=== PATIENT | male | born 1945 | race Caucasian/White ===

== ENCOUNTER 2019-11-08 11:38 | Inpatient (IN) | payer MEDICARE, BC ==
[~2019-11-08 11:38] MED LIST: SUCCINYLCHOLINE CHLORIDE INJ 200 MG/10 ML VIAL ONE
[2019-11-08] MEDS ORDERED: NALOXONE HCL INJ/PF 0.4 MG/1 ML SDV IV ONE (11:57)
[2019-11-08] MEDS ORDERED: DEXTROSE 50%-WATER 25 GM/50 ML DISP.SYRIN IV ONE (11:57)
[2019-11-08 12:07] LABS: VENOUS BLOOD BASE EXCESS -4.2 mmol/L; VENOUS BLOOD HCO3 26.4 mmol/L (20-32)
[2019-11-08 12:08] LABS: INTERNATIONAL RATION (INR) 1.05; PROTHROMBIN TIME 13.7 SEC (11.4-15.4)
[2019-11-08 12:09] LABS: VENOUS BLOOD PH 7.16 (7.30-7.42)
[2019-11-08] MEDS ORDERED: ETOMIDATE INJ/PF 20 MG/10 ML SDV IV ONE ×2 (12:19→12:43)
--- NOTE | 2019-11-08 12:33 | RADIOLOGY REPORT (SQ) ---
EXAM DESCRIPTION: CHEST SINGLE VIEW IMAGES COMPLETED DATE/TIME: 11/08/2019 12:20 pm REASON FOR STUDY: unresponsive COMPARISON: None. EXAM PARAMETERS: NUMBER OF VIEWS: One view. TECHNIQUE: Single frontal radiographic view of the chest acquired. RADIATION DOSE: NA LIMITATIONS: Demographics mismatch warning. Both film and report are marked in Reggie Herrera FINDINGS: LUNGS AND PLEURA: No opacities, masses or pneumothorax. No pleural effusion. MEDIASTINUM AND HILAR STRUCTURES: No masses. Contour normal. HEART AND VASCULAR STRUCTURES: Heart normal in size. Normal vasculature. BONES: No acute findings. HARDWARE: None in the chest. OTHER: No other significant finding. IMPRESSION: NO ACUTE RADIOGRAPHIC FINDING IN THE CHEST. TECHNICAL DOCUMENTATION: JOB ID: [id number] 2010 [employer]- All Rights Reserved Reading location - IP/workstation name: [email or web address]
[2019-11-08] MEDS: PROPOFOL 1,000 MG/100 ML INFUS..BTL IV PRN ×3 (12:42→20:28)
[2019-11-08] MEDS ORDERED: SUCCINYLCHOLINE CHLORIDE INJ 200 MG/10 ML VIAL IV ONE (12:44)
--- NOTE | 2019-11-08 12:50 | RADIOLOGY REPORT (SQ) ---
EXAM DESCRIPTION: CHEST SINGLE VIEW IMAGES COMPLETED DATE/TIME: 11/08/2019 12:40 pm REASON FOR STUDY: check ett COMPARISON: 11/08/2019 EXAM PARAMETERS: NUMBER OF VIEWS: One view. TECHNIQUE: Single frontal radiographic view of the chest acquired. RADIATION DOSE: NA LIMITATIONS: None. FINDINGS: LUNGS AND PLEURA: No opacities, masses or pneumothorax. No pleural effusion. MEDIASTINUM AND HILAR STRUCTURES: No masses. Contour normal. HEART AND VASCULAR STRUCTURES: Heart normal in size. Normal vasculature. BONES: No acute findings. HARDWARE: An endotracheal tube is in position with its tip 4 cm above the lucina. OTHER: No other significant finding. IMPRESSION: Endotracheal tube as described. No other interval change. TECHNICAL DOCUMENTATION: JOB ID: [id number] 2010 [employer]- All Rights Reserved Reading location - IP/workstation name: [email or web address]
--- NOTE | 2019-11-08 13:55 | RADIOLOGY REPORT (SQ) ---
EXAM DESCRIPTION: CT HEAD WITHOUT IMAGES COMPLETED DATE/TIME: 11/08/2019 1:29 pm REASON FOR STUDY: UNRESPONSIVE COMPARISON: None. TECHNIQUE: Axial images acquired through the brain without intravenous contrast. Images reviewed wi th bone, brain and subdural windows. Additional sagittal and coronal reconstructions were generated. Images stored on PACS. All CT scanners at this facility use dose modulation, iterative reconstruction, and/or weight based d osing when appropriate to reduce radiation dose to as low as reasonably achievable (ALARA). [facility]: Dose Right [facility]: CareDose [facility]: Dose Right [facility]: Teradose 4D [facility]: Metwit RADIATION DOSE: CT Rad equipment meets quality standard of care and radiation dose reduction techniq ues were employed. CTDIvol: 53.2 mGy. DLP: 1124 mGy-cm.mGy. LIMITATIONS: None. FINDINGS: VENTRICLES: Prominent. CEREBRUM: No masses. No hemorrhage. No midline shift. Areas of low density in the white matter mos t likely due to chronic micro-vascular ischemic change. No evidence for acute infarction. CEREBELLUM: No masses. No hemorrhage. No alteration of density. No evidence for acute infarction. EXTRAAXIAL SPACES: Age-related involutional change. No fluid collections. No masses. ORBITS AND GLOBE: No intra- or extraconal masses. Normal contour of globe without masses. CALVARIUM: No fracture. PARANASAL SINUSES: Completely opacified maxillary, ethmoid and sphenoid sinuses. SOFT TISSUES: No mass or hematoma. OTHER: No other significant finding. IMPRESSION: CHRONIC CHANGES OF ATROPHY AND MICROVASCULAR ISCHEMIA. NO ACUTE PROCESS. EVIDENCE OF ACUTE STROKE: NO. TECHNICAL DOCUMENTATION: JOB ID: [id number] Quality ID # [id number]: Final reports with documentation of one or more dose reduction techniques (e.g., Au tomated exposure control, adjustment of the mA and/or kV according to patient size, use of iterative reconstruction technique) 2010 [employer]- All Rights Reserved Reading location - IP/workstation name: [email or web address]
--- NOTE | 2019-11-08 13:56 | ER Document Report ---
ED General - General Chief Complaint: Unresponsive Stated Complaint: UNRESPONSIVE Mode of Arrival: Medic Information source: Emergency Med Personnel TRAVEL OUTSIDE OF THE [place] IN LAST 30 DAYS: No - HPI Notes: Patient is brought in unresponsive. Paramedics state that when they arrived at scene they found the patient with a blood sugar of 40 as well as a pulse ox saturation of 40%. They state they immediately put a nonrebreather on and gave the patient glucose. His blood sugar came back to normal as well as his saturations however patient never became responsive. The paramedics state that the told them they were sitting in the chair watching TV and she went into the kitchen to get some food she stated when she came back he was not responsive. There is been no known recent fevers cough congestion or signs of illness. No known recent falls or trauma. No known covert virus exposures. Patient's symptoms of unresponsiveness have been constant. Nothing appears to make them better or worse. There is obviously no radiation of the symptoms. They are not severe. - Related Data Allergies/Adverse Reactions: oxycodone [From OxyContin] Allergy (Verified 07/30/18 13:08) Past Medical History - General Information source: Emergency Med Personnel - Social History Smoking Status: Former Smoker Chew tobacco use (# tins/day): No Drug Abuse: None Family History: CAD Patient has homicidal ideation: No - Past Medical History Cardiac Medical History: Reports: Hx Congestive Heart Failure, Hx Coronary Artery Disease, Hx Peripheral Vascular Disease Pulmonary Medical History: Reports: Hx COPD Endocrine Medical History: Reports: Hx Diabetes Mellitus Type 2 Renal/ Medical History: Denies: Hx Peritoneal Dialysis Past Surgical History: Reports: Hx Cardiac Surgery - stent, Hx Coronary Stent - x 2 Review of Systems - Review of Systems -: Yes ROS unobtainable due to patient's medical condition - Cannot obtain review of symptoms due to patient's unresponsiveness Physical Exam - Vital signs Vitals: Resp Pulse Ox 24 H 100 11/08/19 11:37 11/08/19 11:37 Interpretation: Normal - General General appearance: Unresponsive In distress: Mild - HEENT Head: Normocephalic, Atraumatic Cornea: Normal Eyelashes: Normal Pupils: PERRL, Pinpoint Mouth/Lips: Normal Mucous membranes: Dry Pharynx: Normal Neck: Normal - Respiratory Respiratory status: Respiratory distress - Mild Chest status: Nontender Breath sounds: Normal, Decreased air movement, Rhonchi, Wheezing Chest palpation: Normal - Cardiovascular Rhythm: Regular Heart sounds: Normal auscultation Murmur: No - Abdominal Inspection: Normal Distension: No distension Bowel sounds: Normal Tenderness: Nontender Organomegaly: No organomegaly - Back Back: Normal, Nontender - Extremities General upper extremity: Normal inspection, Normal color, Normal temperature General lower extremity: Normal inspection, Edema - 1+ bilaterally with bilateral erythema of the lower extremities consistent with venous stasis changes, Normal color, Normal temperature. No: Filomena's sign - Neurological Cognition: Confused Orientation: Disoriented to person, Disoriented to place, Disoriented to time Mcintyre Coma Scale Eye Opening: None Matt Coma Scale Verbal: Incomprehensible Matt Coma Scale Motor: Withdraws to Pain Mcintyre Coma Scale Total: 7 - Psychological Associated symptoms: Confused, Depressed - Skin Skin Temperature: Warm Skin Moisture: Dry Skin Color: Normal Course - Re-evaluation Re-evalutation: 11/08/19 13:54 Patient arrived by EMS unresponsive. Patient did have a period of hypoglycemia this was corrected and patient's persistent unresponsiveness may be secondary to the original episode of hypoglycemia. Patient was also noticed to be significantly hypoxic but has had normal respirations on his own here with good saturations on a nonrebreather. There is no obvious evidence of infection anywhere at this time. I do not see any evidence of intracranial pathology on CT scan although has not been read by the radiologist. Patient is not febrile. I initially tried a period of about 20 to 30 minutes of seeing if patient's mental status would improve as his glucose was normalized however patient blood gas came back acidotic with an elevated PCO2. He continued to be a GCS less than 8. Therefore I felt that it was necessary to do rapid sequence intubation on this patient. After intubation he is been stable with vital signs. He has been sedated with propofol. Labs at this time are pending and have to be redrawn. I have discussed the case with the intensive care physician who will see the patient in the emergency department. - Vital Signs Vital signs: Temp Pulse Resp BP Pulse Ox 96.4 F L 13 169/86 H 100 11/08/19 11:38 11/08/19 12:40 11/08/19 12:40 11/08/19 12:40 - Laboratory Result Diagrams: 11/08/19 11:42 11/08/19 11:42 Laboratory results interpreted by me: 11/08/19 11/08/19 11:42 11:43 VBG pH 7.16 L* VBG pCO2 76.0 H* POC Glucose 162 H - Diagnostic Test Radiology reviewed: Image reviewed, Reports reviewed Procedures - Intubation Orotracheal Time of Intubation: 12:30 Airway evaluation: Copious secretions, Large tongue, Obese Mallampati Classification: Class 3 Medications: Etomidate, Succinylcholine Intubation method: Orotracheal Blade type: Other - glidescope blade Blade size: 3 Equipment used: Glidescope ETT size: 7.5 ETT secured at: Lips ETT secured at (cm): 24 Breath Sounds after Intubation: Equal End tidal CO2 confirmed: Yes Ventilator settings: PS Post Intubation Xray: Yes Intubation Complications: No complications. No: Oral-unsuccessful attempt Critical Care Note - Critical Care Note Total time excluding time spent on procedures (mins): 60 Comments: 60 minutes of critical care time were spent on this patient. This patient presented with altered mental status. This time was spent having discussions with multiple consultants. It was spent reviewing old records. It was spent reviewing imaging and laboratories. It was spent doing multiple reassessments. Discharge - Discharge Clinical Impression: Unresponsive, Hypoglycemia, Acute respiratory failure with hypoxia and hypercapnia Condition: Critical Disposition: ADMITTED INPATIENT Admitting Provider: Natty ([employer]) Unit Admitted: ICU
[2019-11-08] MEDS ORDERED: PHARMACY COMMUNICATION ORDER MC NR (14:45)
[2019-11-08] MEDS ORDERED: HEPARIN SOD (PORCINE) 5,000 UNIT/ML 1 ML VIAL SUBCUT SCH (15:00)
[2019-11-08] MEDS ORDERED: FENTANYL CITRATE INJ/PF 100 MCG/2 ML AMPUL IV ONE (15:30)
[2019-11-08] MEDS ORDERED: RINGERS SOLUTION,LACTATED 500 ML IV ONE (15:30)
[2019-11-08] MEDS: HYDROCORTISONE SOD SUCCINATE INJ/PF 100 MG/2 ML SDV IV SCH ×2 (15:42→21:38)
[2019-11-08 15:50] LABS: INTERNATIONAL RATION (INR) 1.03; PROTHROMBIN TIME 13.6 SEC (11.4-15.4)
[2019-11-08 15:51] LABS: PARTIAL THROMBOPLASTIN TIME 32.2 SEC (23.5-35.8)
[2019-11-08 15:53] LABS: D-DIMER 1.35 ug/mL (0.00-0.50); HEMATOCRIT 42.8 % (37.9-51.0); HEMOGLOBIN 13.8 g/dL (13.5-17.0); MEAN CORPUSCULAR HEMOGLOBIN 29.8 pg (27.0-33.4); MEAN CORPUSCULAR HGB CONC 32.1 g/dL (32.0-36.0); MEAN CORPUSCULAR VOLUME 93 fl (80-97); PLATELET COUNT 264 10^3/uL (150-450); RED BLOOD COUNT 4.62 10^6/uL (4.35-5.55); RED CELL DISTRIBUTION WIDTH 13.7 % (11.5-14.0); WHITE BLOOD COUNT 16.7 10^3/uL (4.0-10.5)
[2019-11-08 16:03] LABS: ALBUMIN 3.3 g/dL (3.5-5.0); ALKALINE PHOSPHATASE 89 U/L (38-126); ANION GAP 5 (5-19); ASPARTATE AMINO TRANSFERASE 27 U/L (17-59); BLOOD UREA NITROGEN 25 mg/dL (7-20); CALCIUM 8.5 mg/dL (8.4-10.2); CARBON DIOXIDE 30 mmol/L (22-30); CHLORIDE 104 mmol/L (98-107); GLUCOSE 93 mg/dL (75-110); POTASSIUM 5.3 mmol/L (3.6-5.0); TOTAL PROTEIN 6.8 g/dL (6.3-8.2)
[2019-11-08] MEDS ORDERED: CEFEPIME 1 GM/D5W RTU 1 GM/50 ML RTUPB IV ONE (16:15)
[2019-11-08 16:25] LABS: AMYLASE 88 U/L (30-110); CREATINE KINASE 200 U/L (55-170)
[2019-11-08 16:28] LABS: ABSOLUTE LYMPHOCYTES# (MANUAL) 0.8 10^3/uL (0.5-4.7); ABSOLUTE MONOCYTES # (MANUAL) 0.3 10^3/uL (0.1-1.4); BASOPHILS % (MANUAL) 1 % (0-2); EOSINOPHILS % (MANUAL) 0 % (0-6); LYMPHOCYTES % (MANUAL) 5 % (13-45); MONOCYTES % (MANUAL) 2 % (3-13); PLATELET COMMENT ADEQUATE; SEGMENTED NEUTROPHILS % (MAN) 92 % (42-78); TOTAL CELLS COUNTED 100
[2019-11-08] MEDS ORDERED: HEPARIN SOD (PORCINE) 1,000 UNIT/ML 10 ML VIAL IV ONE (16:30)
[2019-11-08 16:31] LABS: BURR CELLS 1+; POLYCHROMASIA SLIGHT
[2019-11-08 16:39] LABS: FREE T4 (FREE THYROXINE) 0.8 ng/dL (0.78-2.19)
[2019-11-08] MEDS: IPRATROPIUM/ALBUTEROL 0.5-2.5 MG/3 ML AMPUL NEB SCH ×2 (16:51→20:21)
[2019-11-08 16:53] LABS: THYROID STIMULATING HORMONE 2.65 uIU/mL (0.47-4.68)
--- NOTE | 2019-11-08 16:56 | CRITICAL CARE ADMISSION REPORT ---
HPI Date:: 11/08/19 Time:: 15:00 Reason for ICU Reason:: Hypoglycemic coma with need for mechanical ventilation Admission Date/Time & PCP: Admission Date/Time: 11/08/19 14:22 Primary Care Provider: SC JORDAN HPI: Patient is a 74-year-old male with a history of type 2 diabetes on insulin therapy as well as CKD (unknown severity) who presented unresponsive to the emergency room. Original records seem to indicate that this was acute however when the arrived to give more information it was determined that his last known "seen normal" was last evening. Patient was seen by EMS after the called and found to have a blood sugar of 40 mg/dL. He was unresponsive. In the emergency room he was given more glucose which improved his blood sugar but did not improve his neurological status. Given the reduction in his neurological status he was intubated. I was unable to obtain any history from the patient. The states that he has had an upper respiratory infection with symptoms of nasal congestion runny nose and possible sore throat. He does have oxygen condenser at home but does not appear to have needed at higher dose nor continuous use of the oxygen. He does use it at night however it is difficult to know whether he needed it last evening. Initial blood gas in the emergency room showed a pH that was low and significant hypercarbia. In review of past medications patient has been on steroids. He is also on gabapentin at 600 mg every 8 hours. He has had a history of possible CKD and was seen in our institution for this. He also took his insulin last night as best as anybody can tell. He underwent COVID testing in the emergency room. Results are still pending. EKG in the emergency room shows atrial fibrillation. His is unaware if this is acute or chronic however he was on rivaroxaban but discontinued secondary to bleeding when he scratched his skin. I reviewed the patient's medications obtained from the family. Currently the patient is on: Lipitor 40 mg daily Gabapentin 600 mg TID Lasix 20 mg prn for leg swelling Metoprolol Succinate 12.5 mg daily Synthroid 50 mcg daily Mometasone Furoate: 220 mcg 2 puffs daily Fluticasone 50 mcg 2 sprays in each nostril daily CholeCalciferol 25 mcg (D3-1000 u) 2 tablets daily Insulin regimen: Insulin Glarginine: (Soliqua) 50 units QHS Coverage scale -with Humalog Albuterol 90 mcg Inhl- 2 puffs Q6h PRN Albuterol soln neb: 0.083% 3 ml q6h prn Olodaterol/Tiotropium 2.5 mcg 2 puffs daily Rivaroxaban 20 mg daily-not currently taking History obtained from:: , son and ED staff - Diagnosis/Plan (1) Hypoglycemic coma due to diabetes mellitus Is this a current diagnosis for this admission?: Yes (2) Acute respiratory failure with hypoxia and hypercapnia Is this a current diagnosis for this admission?: Yes (3) Hypoglycemia Is this a current diagnosis for this admission?: Yes (4) Bilateral lower leg cellulitis Is this a current diagnosis for this admission?: Yes (5) CKD (chronic kidney disease) Qualifiers: Chronic kidney disease stage: unspecified stage Qualified Code(s): N18.9 - Chronic kidney disease, unspecified Is this a current diagnosis for this admission?: Yes (6) Longstanding persistent atrial fibrillation Is this a current diagnosis for this admission?: Yes (7) Hypothyroidism Is this a current diagnosis for this admission?: Yes Plan Summary: Respiratory: Patient has hypercarbic and hypoxic respiratory failure which may be a manifestation of his hypoglycemic comatose state. We will attempt to wean mechanical ventilation as his neurological and respiratory status improves. He has a history of COPD that is intermittently oxygen requiring. His chest x-ray does not show any significant findings. We will continue to monitor for aspiration pneumonitis and/or pneumonia. Infectious: Patient has bilateral erythema of his lower extremities. Have started broad-spectrum antibiotics, obtain blood cultures and will obtain urinalysis. Have also added antifungal therapy for the legs. Monitor procalcitonin. Cardiac: Patient appears to have atrial fibrillation which is persistent controlled ventricular response. He is supposed to be on rivaroxaban however had discontinued this because of bleeding when he traumatized his skin. Will need to re-institute anticoagulation especially given his low heart rate in the form of IV heparin. His skin is furrowed on exam suggestive of hypovolemia/dehydration. We will give supplemental bolus of LR and place him on D5 LR given his hypoglycemia. Hematologic: Will recheck coagulation parameters, d-dimer and institute heparin therapy if parameters are suitable. Follow platelets. Endocrine: Patient had hypoglycemia on initial presentation. This may be a combination of insulin therapy in the face of renal failure and/or unintentional overdosage. In addition he may have adrenal insufficiency and of check a cortisol level. I have preemptively started him on hydrocortisone for both its mineral and glucocorticoid effects. We will check the results. Have also ordered TSH given the fact that he has hypothyroidism to assure that there is no worsening thyroid function. Renal: Patient had a creatinine of 2.26 more than a year ago. We are not privy to his recent creatinine and labs are still pending. Will need to follow-up on this and adjust medications accordingly. Metabolic: We will check ammonia level as well as follow his pH with a repeat ABG. Replace electrolytes as needed. His QTC is slightly elevated and will need to make sure his magnesium is high to normal. Alimentary: Need to start nutritional support within the next 24 hours. Neurologic: Patient appears to have coma secondary to hypoglycemic event. Continue to monitor his neurological status determine suitability removal from mechanical ventilation. Sedation/analgesia: Patient has been ordered propofol because of agitation while on the ventilator. Lines/Tubes: Patient has peripheral IVs Other/family: Discussed prognosis case and care with family who are at bedside. Past Medical History Cardiac Medical History: Reports: Atrial Fibrillation - On anticoagulation, Congestive Heart Failure, Coronary Artery Disease, Peripheral Vascular Disease Pulmonary Medical History: Reports: Chronic Obstructive Pulmonary Disease (COPD), Other - Has home condense oxygen to be used as needed Neurological Medical History: Reports: None Endocrine Medical History: Reports: Diabetes Mellitus Type 2 - Long-term insulin requiring Renal/ Medical History: Reports: Chronic Kidney Disease, Other - Unknown severity Malignancy Medical History: Reports: None GI Medical History: Reports: None Musculoskeltal Medical History: Reports: None Skin Medical History: Reports: None Psychiatric Medical History: Reports: None Traumatic Medical History: Reports: None Hematology: Reports: 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, Other Infectious Medical History: Reports: None Past Surgical History Past Surgical History: Reports: Coronary Stent - x 2 Social/Family History - Social History Lives with: Spouse/Significant other Smoking Status: Former Smoker Frequency of Alcohol Use: Social Hx Recreational Drug Use: No Drugs: None Hx Prescription Drug Abuse: No - Family History Family History: Other - Unable to obtain - Medication/Allergies Home Medications: Albuterol Sulfate [Ventolin 0.083% Neb 2.5 mg/3 mL Ampul] 1 vial NEB [id number] PRN 07/30/18 Aspirin [Ecotrin 325 mg EC Tablet] 325 mg PO DAILY 07/30/18 Atorvastatin Calcium [Lipitor 40 mg Tablet] 40 mg PO QHS 07/30/18 Furosemide [Lasix 20 mg Tablet] 20 mg PO QAM 07/30/18 Hum Insulin NPH/Reg Insulin Hm [Novolin 70-30 100 Unit/Ml Vial] 70 unit SQ QPM 07/30/18 Hum Insulin NPH/Reg Insulin Hm [Novolin 70-30 100 Unit/ml Vial] 0 unit SQ QAM PRN 07/30/18 Metoprolol Succinate [Toprol Xl 25 mg Tab.sr] 12.5 mg PO DAILY 07/30/18 Fluticasone/Vilanterol [Breo 200-25 Mcg Ellipta 14 Dose/Dpi] 1 inh IH DAILY #1 inhaler 08/03/18 Gabapentin [Neurontin 300 mg Capsule] 300 mg PO Q8 #10 capsule 08/03/18 Prednisone [Deltasone 10 mg Tablet] 10 mg PO BID 5 Days #10 tablet 08/03/18 Tiotropium West [Spiriva Handihaler 5 Cap/Kit (18 Mcg/Cap)] 1 cap IH DAILY #30 kit 08/03/18 Allergies/Adverse Reactions: oxycodone [From OxyContin] Allergy (Verified 07/30/18 13:08) Review of Systems ROS unobtainable: Due to endotracheal tube, Due to mental status Physical Exam Vital Signs: Temp Pulse Resp BP Pulse Ox 96.4 F L 13 169/86 H 100 11/08/19 11:38 11/08/19 12:40 11/08/19 12:40 11/08/19 12:50 Intake & Output 11/07/19 11/08/19 11/09/19 06:59 06:59 06:59 Intake Total 35 Balance 35 Weight 97.3 kg Weight/Height Weight 97.3 kg Height 5 ft 11 in General appearance: PRESENT: no acute distress, obese, well-developed, well- nourished Exam: Intubated, older appearing 74-year-old male no active distress. He is moving his arms spontaneously Head exam: PRESENT: atraumatic, normocephalic Eye exam: PRESENT: conjunctiva pink, PERRLA. ABSENT: conjunctival injection, nystagmus, scleral icterus Ear exam: ABSENT: bleeding Mouth exam: PRESENT: dry mucosa, neck supple Teeth exam: PRESENT: poor dentation Neck exam: PRESENT: carotid bruit. ABSENT: JVD, lymphadenopathy, meningismus, tenderness, thyromegaly, tracheal deviation, tracheostomy Respiratory exam: PRESENT: rhonchi, unlabored, other - Lung sounds not auscultated secondary to the confines of PPE and poor auditory capability of disposable stethoscope. ABSENT: accessory muscle use, prolonged expiratory phas, tachypnea Cardiovascular exam: PRESENT: irregular rhythm, other - Heart sounds not auscultated secondary to the confines of PPE and poor auditory capability of disposable stethoscope. ABSENT: tachycardia Pulses: ABSENT: normal dorsalis pedis pul Vascular exam: PRESENT: normal capillary refill. ABSENT: pallor GI/Abdominal exam: PRESENT: soft, other - Gastric sounds not auscultated secondary to the confines of PPE and poor auditory capability of disposable stethoscope. ABSENT: distended, guarding, mass, organolmegaly, rebound, tenderness Rectal exam: PRESENT: deferred Gentrourinary exam: PRESENT: indwelling catheter Extremities exam: PRESENT: other - Bilateral lower extremity erythema with decreased turgor mobility and elasticity of the lower extremities. The right great toe has a small ulceration with discoloration from what appears to be an antibiotic solution. There is no erythema. ABSENT: pedal edema Musculoskeletal exam: ABSENT: deformity, dislocation Neurological exam: PRESENT: altered, other - Patient currently sedated. Gepp Coma Scale 21Tfacial grimace Focused psych exam: PRESENT: restlessness Skin exam: PRESENT: dry, intact, warm, other - Bilateral erythema of lower extremities ulceration of right great toe. ABSENT: cyanosis, rash Laboratory/Radiographs Laboratory Results: 11/08/19 11/08/19 11/08/19 11:42 11:42 11:42 WBC Cancelled RBC Cancelled Hgb Cancelled Hct Cancelled MCV Cancelled MCH Cancelled MCHC Cancelled RDW Cancelled Plt Count Cancelled Seg Neutrophils % Cancelled VBG pH 7.16 L* VBG pCO2 76.0 H* VBG HCO3 26.4 VBG Base Excess -4.2 Sodium Cancelled Potassium Cancelled Chloride Cancelled Carbon Dioxide Cancelled Anion Gap Cancelled BUN Cancelled Creatinine Cancelled Est GFR ( Amer) Cancelled Est GFR (Non-Af Amer) Cancelled Glucose Cancelled Lactic Acid Calcium Cancelled Total Bilirubin Cancelled AST Cancelled Alkaline Phosphatase Cancelled Total Protein Cancelled Albumin Cancelled 11/08/19 11:42 WBC RBC Hgb Hct MCV MCH MCHC RDW Plt Count Seg Neutrophils % VBG pH VBG pCO2 VBG HCO3 VBG Base Excess Sodium Potassium Chloride Carbon Dioxide Anion Gap BUN Creatinine Est GFR ( Amer) Est GFR (Non-Af Amer) Glucose Lactic Acid 0.7 Calcium Total Bilirubin AST Alkaline Phosphatase Total Protein Albumin Impressions: Chest X-Ray 11/08/19 12:29 IMPRESSION: Endotracheal tube as described. No other interval change. Head CT 11/08/19 12:29 IMPRESSION: CHRONIC CHANGES OF ATROPHY AND MICROVASCULAR ISCHEMIA. NO ACUTE PROCESS. EVIDENCE OF ACUTE STROKE: NO. EKG: QTC 506 MS, controlled slow atrial fibrillation; previous EKG reviewed. Slight ST elevation in the anterior leads has been seen before. Q changes are noted in inferior leads. No acute changes All labs, radiographs, diagnostic studies and EKGs were personally reviewed: Yes In addition, reports of radiographic and diagnostic studies were read: Yes Critical Time Critical Time (minutes): 70 -: The care of a critically ill patient is dynamic. This note represents a static moment in the admission process. Orders and treatments may be given simultaneously and urgently, and time is not home office representative of the treatment process. This patient requires Critical Care secondary to life threatening organ or limb dysfunction. Without Critical Care services, the patient is at risk for increased mortality and morbidity.
[2019-11-08 17:00] LABS: C-REACTIVE PROTEIN < 5.0 mg/L (<10.0)
[2019-11-08] MEDS: DEXTROSE 5%-NORMAL SALINE 1,000 ML IV PRN (17:00)
[2019-11-08] MEDS: CLOTRIMAZOLE 1% CREAM 15 GM TP SCH ×2 (17:27→21:38)
[2019-11-08 17:37] LABS: ARTERIAL BLOOD BASE EXCESS 4.1 mmol/L; ARTERIAL BLOOD H2CO3 1.52 mmol/L (1.05-1.35); ARTERIAL BLOOD HCO3 30.1 mmol/L (20-24); ARTERIAL BLOOD O2 SATURATION 97.6 % (94-98); ARTERIAL BLOOD PCO2 50.5 mmHg (35-45); ARTERIAL BLOOD PH 7.39 (7.35-7.45); ARTERIAL BLOOD PO2 103.2 mmHg (80-100); ARTERIAL BLOOD TOTAL CO2 31.6 mmol/L (23-27)
[2019-11-08 17:40] LABS: ARTERIAL BLOOD FIO2 40%
[2019-11-08 18:03] LABS: APPEARANCE,URINE CLOUDY; BILIRUBIN,URINE NEGATIVE (NEGATIVE); COLOR,URINE AMBER; GLUCOSE, URINE NEGATIVE (NEGATIVE); KETONES,URINE TRACE mg/dL (NEGATIVE); PROTEIN,URINE >=500 mg/dL (NEGATIVE); URINE SPECIFIC GRAVITY 1.019; UROBILINOGEN,URINE NEGATIVE mg/dL (<2.0)
[2019-11-08 18:22] LABS: URINE AMPHETAMINES SCREEN NEGATIVE; URINE BARBITURATES SCREEN NEGATIVE; URINE COCAINE SCREEN NEGATIVE; URINE MARIJUANA (THC) SCREEN NEGATIVE; URINE METHADONE SCREEN NEGATIVE; URINE PHENCYCLIDINE SCREEN NEGATIVE
[2019-11-08] MEDS: HEPARIN SODIUM,PORCINE/D5W 25,000 UNIT/250 ML RTUINJ IV PRN (18:28)
[2019-11-08 18:33] LABS: URINE BENZODIAZEPINES SCREEN NEGATIVE
[2019-11-08] MEDS ORDERED: HEPARIN SOD (PORCINE) 1,000 UNIT/ML 10 ML VIAL IV PRN (19:31)
[2019-11-08] MEDS: FAMOTIDINE 20 MG TABLET NG SCH (21:38)
[2019-11-08] MEDS ORDERED: FAMOTIDINE 20 MG TABLET PO SCH (22:00)
[2019-11-09] MEDS: PROPOFOL 1,000 MG/100 ML INFUS..BTL IV PRN ×2 (00:46→09:08)
[2019-11-09] MEDS: DEXTROSE 5%-NORMAL SALINE 1,000 ML IV PRN (02:06)
[2019-11-09] MEDS: IPRATROPIUM/ALBUTEROL 0.5-2.5 MG/3 ML AMPUL NEB SCH ×4 (02:56→20:00)
[2019-11-09 04:50] LABS: HEMATOCRIT 37.2 % (37.9-51.0); HEMOGLOBIN 12.6 g/dL (13.5-17.0); MEAN CORPUSCULAR HEMOGLOBIN 30.5 pg (27.0-33.4); MEAN CORPUSCULAR HGB CONC 33.7 g/dL (32.0-36.0); MEAN CORPUSCULAR VOLUME 90 fl (80-97); PLATELET COUNT 246 10^3/uL (150-450); RED BLOOD COUNT 4.12 10^6/uL (4.35-5.55); RED CELL DISTRIBUTION WIDTH 13.8 % (11.5-14.0); WHITE BLOOD COUNT 13.4 10^3/uL (4.0-10.5)
[2019-11-09 04:55] LABS: INTERNATIONAL RATION (INR) 1.14; PROTHROMBIN TIME 14.6 SEC (11.4-15.4)
[2019-11-09 04:57] LABS: PARTIAL THROMBOPLASTIN TIME 80.2 SEC (23.5-35.8)
[2019-11-09 05:10] LABS: ANION GAP 5 (5-19); BLOOD UREA NITROGEN 29 mg/dL (7-20); CALCIUM 8.3 mg/dL (8.4-10.2); CARBON DIOXIDE 27 mmol/L (22-30); CHLORIDE 106 mmol/L (98-107); GLUCOSE 191 mg/dL (75-110); PHOSPHORUS 4.1 mg/dL (2.5-4.5); POTASSIUM 4.9 mmol/L (3.6-5.0)
[2019-11-09 05:23] LABS: ABSOLUTE LYMPHOCYTES# (MANUAL) 1.2 10^3/uL (0.5-4.7); ABSOLUTE MONOCYTES # (MANUAL) 0.9 10^3/uL (0.1-1.4); BASOPHILS % (MANUAL) 0 % (0-2); EOSINOPHILS % (MANUAL) 0 % (0-6); LYMPHOCYTES % (MANUAL) 9 % (13-45); MONOCYTES % (MANUAL) 7 % (3-13); SEGMENTED NEUTROPHILS % (MAN) 84 % (42-78); TOTAL CELLS COUNTED 100
[2019-11-09 05:25] LABS: OVALOCYTES SLIGHT; PLATELET COMMENT ADEQUATE; POIKILOCYTOSIS SLIGHT; SCHISTOCYTES SLIGHT; TEAR DROP CELLS SLIGHT; TOXIC GRANULATION SLIGHT; TOXIC VACUOLATION PRESENT
[2019-11-09] MEDS: HYDROCORTISONE SOD SUCCINATE INJ/PF 100 MG/2 ML SDV IV SCH ×3 (06:58→21:02)
[2019-11-09] MEDS: CLOTRIMAZOLE 1% CREAM 15 GM TP SCH ×3 (06:58→21:02)
[2019-11-09] MEDS: CEFEPIME 1 GM/D5W RTU 1 GM/50 ML RTUPB IV SCH ×2 (06:58→17:56)
[2019-11-09 07:20] LABS: ARTERIAL BLOOD BASE EXCESS 3.3 mmol/L; ARTERIAL BLOOD H2CO3 1.37 mmol/L (1.05-1.35); ARTERIAL BLOOD HCO3 28.5 mmol/L (20-24); ARTERIAL BLOOD O2 SATURATION 98.2 % (94-98); ARTERIAL BLOOD PCO2 45.5 mmHg (35-45); ARTERIAL BLOOD PH 7.41 (7.35-7.45); ARTERIAL BLOOD PO2 113.6 mmHg (80-100); ARTERIAL BLOOD TOTAL CO2 29.9 mmol/L (23-27)
[2019-11-09 07:21] LABS: ARTERIAL BLOOD FIO2 40%
--- NOTE | 2019-11-09 08:36 | EKG REPORT ---
SEVERITY:- ABNORMAL ECG - ATRIAL FIBRILLATION PROBABLE INFERIOR INFARCT, AGE INDETERMINATE LATERAL LEADS ARE ALSO INVOLVED BORDERLINE ST ELEVATION, ANTERIOR LEADS PROLONGED QT INTERVAL : Confirmed by: Dorys Carballo MD 09-Nov-2019 08:35:15
--- NOTE | 2019-11-09 08:37 | RADIOLOGY REPORT (SQ) ---
EXAM DESCRIPTION: CHEST SINGLE VIEW IMAGES COMPLETED DATE/TIME: 11/09/2019 6:34 am REASON FOR STUDY: aspiration COMPARISON: 11/08/2019 EXAM PARAMETERS: NUMBER OF VIEWS: One view. TECHNIQUE: Single frontal radiographic view of the chest acquired. RADIATION DOSE: NA LIMITATIONS: None. FINDINGS: LUNGS AND PLEURA: No opacities, masses or pneumothorax. No pleural effusion. MEDIASTINUM AND HILAR STRUCTURES: No masses. Contour normal. HEART AND VASCULAR STRUCTURES: Heart normal in size. Normal vasculature. BONES: No acute findings. HARDWARE: Endotracheal tube tip overlies midthoracic trachea. Enteric tube tip below diaphragm but e xcluded by collimation. OTHER: No other significant finding. IMPRESSION: Endotracheal tube tip overlies midthoracic trachea. No evidence of new cardiopulmonary process. TECHNICAL DOCUMENTATION: JOB ID: [id number] 2010 [employer]- All Rights Reserved Reading location - IP/workstation name: [email or web address]
[2019-11-09] MEDS ORDERED: RINGERS SOLUTION,LACTATED 500 ML IV ONE (10:57)
[2019-11-09] MEDS ORDERED: DEXTROSE 40% GEL 15 GM TUBE PO PRN ×2 (11:02)
[2019-11-09] MEDS ORDERED: GLUCAGON,HUMAN RECOMB 1 MG INJ IM PRN (11:02)
[2019-11-09] MEDS ORDERED: DEXTROSE 50%-WATER 25 GM/50 ML DISP.SYRIN IV PRN ×2 (11:02)
[2019-11-09] MEDS: DEXMEDETOMIDINE IN NS 400 MCG/100 ML RTUPB IV PRN ×2 (11:18→15:42)
[2019-11-09] MEDS: RINGERS SOLUTION,LACTATED 1,000 ML IV PRN ×2 (11:21→12:47)
[2019-11-09 11:42] LABS: C-REACTIVE PROTEIN 10.8 mg/L (<10.0)
[2019-11-09 12:11] LABS: FERRITIN 52.1 ng/mL (17.9-464.0)
[2019-11-09] MEDS: INSULIN LISPRO 100 UNIT/ML 3 ML VIAL SUBCUT SCH ×3 (12:46→23:54)
[2019-11-09] MEDS: FLUTICASONE NASAL SPRAY 50 MCG/SPRY 120 SPRAY/16 GM NASL SCH (13:03)
[2019-11-09] MEDS: ALBUTEROL SULFATE 0.083% NEB 2.5 MG/3 ML AMPUL NEB SCH ×2 (13:24→17:27)
[2019-11-09] MEDS ORDERED: VANCOMYCIN HCL 0 MG in DEXTROSE 5%-WATER 250 ML IV NR (15:15)
[2019-11-09] MEDS: METRONIDAZOLE 500 MG/NS RTU 500 MG/100 ML RTUPB IV SCH ×2 (15:42→21:03)
[2019-11-09] MEDS: HEPARIN SODIUM,PORCINE/D5W 25,000 UNIT/250 ML RTUINJ IV PRN (15:43)
[2019-11-09] MEDS ORDERED: IPRATROPIUM/ALBUTEROL 0.5-2.5 MG/3 ML AMPUL NEB ONE (16:00)
--- NOTE | 2019-11-09 17:26 | PDOC CRITICAL CARE PROG REPORT ---
General Date:: 11/09/19 ICU Day:: 2 Ventilator Day:: 2 Hospital Day:: 2 Resuscitation Status: Full Code Medical Power of State Epidemiologist: Events in the past 12 to 24 Hours:: 11.09.2019: Patient remains in a comatose state however has required propofol for occasional restless movements of his extremities. He has shown gram-negative's in his sputum and gram-positive's on blood culture. He was started on broad-spectrum antibiotics on admission for cellulitis. Urine shows positive leukocyte esterase and WBCs. He has had low urine output reported by the nurses this morning. Review of systems relevant to events:: 11.09.2019: No seizure activity noted. Low urine output noted. Patient has had a penile implant. Reason for ICU Addmission:: Hypoglycemic coma with need for mechanical ventilation - Medications: Medications reviewed and adjusted accordingly: Yes Vasopressors:: None Sedation:: Propofol being weaned Physical Exam Vital Signs: Temp Pulse Resp BP Pulse Ox 96.3 F L 68 9 L 134/68 H 97 11/09/19 16:00 11/09/19 16:00 11/09/19 14:03 11/09/19 16:00 11/09/19 16:00 Intake & Output 11/08/19 11/09/19 11/10/19 06:59 06:59 06:59 Intake Total 1185 1445 Output Total 23 600 Balance 1162 845 Weight 97.4 kg Weight/Height Weight 97.4 kg Height 5 ft 11 in General appearance: PRESENT: no acute distress, well-developed, well-nourished Exam: Intubated, older appearing nontoxic but ill 74-year-old male no acute distress. He is comatose Head exam: PRESENT: atraumatic, normocephalic Eye exam: PRESENT: conjunctiva pink, PERRLA. ABSENT: conjunctival injection, nystagmus, scleral icterus Mouth exam: PRESENT: dry mucosa Teeth exam: PRESENT: edentulous Neck exam: PRESENT: carotid bruit. ABSENT: JVD, lymphadenopathy, tenderness, thyromegaly, tracheal deviation Respiratory exam: PRESENT: other - Lung sounds not auscultated secondary to the confines of PPE and poor auditory capability of disposable stethoscope. ABSENT: accessory muscle use, prolonged expiratory phas Cardiovascular exam: PRESENT: irregular rhythm, other - Heart sounds not auscultated secondary to the confines of PPE and poor auditory capability of disposable stethoscope. ABSENT: bradycardia, tachycardia Pulses: ABSENT: normal dorsalis pedis pul Vascular exam: PRESENT: normal capillary refill. ABSENT: pallor GI/Abdominal exam: PRESENT: soft, other - Gastric sounds not auscultated secondary to the confines of PPE and poor auditory capability of disposable stethoscope. ABSENT: ascites, firm, guarding, mass, tenderness Rectal exam: PRESENT: deferred Gentrourinary exam: PRESENT: indwelling catheter Extremities exam: PRESENT: other - Skin of lower extremities showed improved erythema. There is still furrowing. Musculoskeletal exam: PRESENT: other - Ulceration of right great toe is showing granulation without erythema or discharge Neurological exam: PRESENT: altered, other - Matt Coma Scale is 1-1T-1. Babinski's upgoing bilaterally. No piloerection Skin exam: PRESENT: other - Erythema to lower extremities is improved.. ABSENT: jaundice Tubes/Lines: PRESENT: Endotracheal Tube Laboratory/Radiographs Laboratory Results: 11/09/19 03:56 11/09/19 03:56 11/08/19 11/08/19 11/08/19 17:30 17:30 18:52 WBC RBC Hgb Hct MCV MCH MCHC RDW Plt Count Seg Neutrophils % Carbonic Acid 1.52 H HCO3/H2CO3 Ratio 19:1 ABG pH 7.39 ABG pCO2 50.5 H ABG pO2 103.2 H ABG HCO3 30.1 H ABG O2 Saturation 97.6 ABG Base Excess 4.1 FiO2 40% Sodium Potassium Chloride Carbon Dioxide Anion Gap BUN Creatinine Est GFR ( Amer) Glucose Lactic Acid 1.0 Calcium Phosphorus Magnesium Ferritin C-Reactive Protein Urine Color ZACHARY Urine Appearance CLOUDY Urine pH 5.0 Ur Specific [place] 1.019 Urine Protein >=500 H Urine Glucose (UA) NEGATIVE Urine Ketones TRACE H Urine Blood LARGE H Urine RBC (Auto) 133 11/09/19 11/09/19 11/09/19 03:56 03:56 03:56 WBC 13.4 H RBC 4.12 L Hgb 12.6 L Hct 37.2 L MCV 90 MCH 30.5 MCHC 33.7 RDW 13.8 Plt Count 246 Seg Neutrophils % Not Reportable Carbonic Acid HCO3/H2CO3 Ratio ABG pH ABG pCO2 ABG pO2 ABG HCO3 ABG O2 Saturation ABG Base Excess FiO2 Sodium 137.8 Potassium 4.9 Chloride 106 Carbon Dioxide 27 Anion Gap 5 BUN 29 H Creatinine 2.38 H Est GFR ( Amer) 32 L Glucose 191 H Lactic Acid Calcium 8.3 L Phosphorus 4.1 Magnesium 1.9 Ferritin 52.10 C-Reactive Protein 10.8 H Urine Color Urine Appearance Urine pH Ur Specific [place] Urine Protein Urine Glucose (UA) Urine Ketones Urine Blood Urine RBC (Auto) 11/09/19 07:00 WBC RBC Hgb Hct MCV MCH MCHC RDW Plt Count Seg Neutrophils % Carbonic Acid 1.37 H HCO3/H2CO3 Ratio 20:1 ABG pH 7.41 ABG pCO2 45.5 H ABG pO2 113.6 H ABG HCO3 28.5 H ABG O2 Saturation 98.2 H ABG Base Excess 3.3 FiO2 40% Sodium Potassium Chloride Carbon Dioxide Anion Gap BUN Creatinine Est GFR ( Amer) Glucose Lactic Acid Calcium Phosphorus Magnesium Ferritin C-Reactive Protein Urine Color Urine Appearance Urine pH Ur Specific [place] Urine Protein Urine Glucose (UA) Urine Ketones Urine Blood Urine RBC (Auto) 11/08/19 11/08/19 15:23 15:23 Creatine Kinase 200 H Troponin I 0.093 Impressions: Head CT 11/08/19 12:29 IMPRESSION: CHRONIC CHANGES OF ATROPHY AND MICROVASCULAR ISCHEMIA. NO ACUTE PROCESS. EVIDENCE OF ACUTE STROKE: NO. Chest X-Ray 11/09/19 06:00 IMPRESSION: Endotracheal tube tip overlies midthoracic trachea. No evidence of new cardiopulmonary process. All labs, radiographs, diagnostic studies and EKGs were personally reviewed: Yes In addition, reports of radiographic and diagnostic studies were read: Yes Assessment and Plan - Diagnosis (1) Sepsis with acute organ dysfunction without septic shock Qualifiers: Sepsis type: sepsis due to unspecified organism Severe sepsis acute organ dysfunction type: acute renal failure Acute renal failure type: with acute tubular necrosis Qualified Code(s): A41.9 - Sepsis, unspecified organism; R65.20 - Severe sepsis without septic shock; N17.0 - Acute kidney failure with tubular necrosis Is this a current diagnosis for this admission?: Yes (2) Gram-positive cocci bacteremia Is this a current diagnosis for this admission?: Yes (3) Aspiration into lower respiratory tract Qualifiers: Encounter type: initial encounter Qualified Code(s): T17.800A - Unspecified foreign body in other parts of respiratory tract causing asphyxiation, initial encounter Is this a current diagnosis for this admission?: Yes (4) Acute respiratory failure with hypoxia and hypercapnia Is this a current diagnosis for this admission?: Yes (5) Hypoglycemic coma due to diabetes mellitus Is this a current diagnosis for this admission?: Yes (6) Hypoglycemia Is this a current diagnosis for this admission?: Yes (7) Bilateral lower leg cellulitis Is this a current diagnosis for this admission?: Yes (8) CKD (chronic kidney disease) Qualifiers: Chronic kidney disease stage: unspecified stage Qualified Code(s): N18.9 - Chronic kidney disease, unspecified Is this a current diagnosis for this admission?: Yes (9) Longstanding persistent atrial fibrillation Is this a current diagnosis for this admission?: Yes (10) Hypothyroidism Is this a current diagnosis for this admission?: Yes Plan Summary: 11.09.2019: Patient still remains a comatose state but has required propofol secondary to motor movements. These are not seizure related. We will begin to reduce sedation to determine adequate neurological exam. Patient has gram-negative organisms in his urine and sputum. He has gram- positive cocci on blood culture. His erythema in his legs has improved significantly. At this point we are awaiting neurological recovery to begin the process of weaning from mechanical ventilation. His glucose has improved as well and we have taken him off D5W. We will give supplemental insulin but no long-acting insulin. Both his blood pressure and glucose seem to have improved with the initiation of Solu-Cortef. He may have had an underlying degree of adrenal insufficiency. Continue on broad-spectrum antibiotics and antifungal cream to legs. Continue heparin for his atrial fibrillation. Wean propofol. Awaiting COVID-19 testing Patient has acute on chronic renal failure. We do not have a baseline creatinine since his last admission to adequately determine what level of chronic kidney disease he has. He remains comatose and I am suspicious that his hypoglycemic event has caused undue neurological dysfunction. He has had low urine output will need to be prudent to watch for worsening renal function. Continue IV fluids. In addition I gave him a bolus dose of fluids. 11.08.2019: Respiratory: Patient has hypercarbic and hypoxic respiratory failure which may be a manifestation of his hypoglycemic comatose state. We will attempt to wean mechanical ventilation as his neurological and respiratory status improves. He has a history of COPD that is intermittently oxygen requiring. His chest x-ray does not show any significant findings. We will continue to monitor for aspiration pneumonitis and/or pneumonia. Infectious: Patient has bilateral erythema of his lower extremities. Have started broad-spectrum antibiotics, obtain blood cultures and will obtain urinalysis. Have also added antifungal therapy for the legs. Monitor procalcitonin. Cardiac: Patient appears to have atrial fibrillation which is persistent co ntrolled ventricular response. He is supposed to be on rivaroxaban however had discontinued this because of bleeding when he traumatized his skin. Will need to re-institute anticoagulation especially given his low heart rate in the form of IV heparin. His skin is furrowed on exam suggestive of hypovolemia/dehydration. We will give supplemental bolus of LR and place him on D5 LR given his hypoglycemia. Hematologic: Will recheck coagulation parameters, d-dimer and institute heparin therapy if parameters are suitable. Follow platelets. Endocrine: Patient had hypoglycemia on initial presentation. This may be a combination of insulin therapy in the face of renal failure and/or unintentional overdosage. In addition he may have adrenal insufficiency and of check a cortisol level. I have preemptively started him on hydrocortisone for both its mineral and glucocorticoid effects. We will check the results. Have also ordered TSH given the fact that he has hypothyroidism to assure that there is no worsening thyroid function. Renal: Patient had a creatinine of 2.26 more than a year ago. We are not privy to his recent creatinine and labs are still pending. Will need to follow-up on this and adjust medications accordingly. Metabolic: We will check ammonia level as well as follow his pH with a repeat ABG. Replace electrolytes as needed. His QTC is slightly elevated and will ne ed to make sure his magnesium is high to normal. Alimentary: Need to start nutritional support within the next 24 hours. Neurologic: Patient appears to have coma secondary to hypoglycemic event. Co ntinue to monitor his neurological status determine suitability removal from mechanical ventilation. Sedation/analgesia: Patient has been ordered propofol because of agitation while on the ventilator. Lines/Tubes: Patient has peripheral IVs Other/family: Discussed prognosis case and care with family who are at bedside. Critical Time Critical Time (minutes): 50 Level of Care: ICU Anticipated discharge: Acute Rehab Anticipated DC Timeframe: Other - Time unknown. -: 1. The care of a critical patient is a dynamic process. This note is a senior sales representative synopsis but static in nature. The timeframe for treatments given in order is not necessarily the actual time these treatments may have been done. 2. This patient requires critical care secondary to ongoing requirements for therapy not offered or safe outside the critical care environment. Transfer to a lower level of care will result in altered life or limb morbidity and mortality. 3. Multidisciplinary rounds completed. 4. ABCDE bundle addressed.
[2019-11-09] MEDS: VANCOMYCIN HCL 1,000 MG in DEXTROSE 5%-WATER 250 ML IV SCH (20:50)
[2019-11-09] MEDS: FAMOTIDINE 20 MG TABLET NG SCH (21:01)
[2019-11-09] MEDS: ATORVASTATIN CALCIUM 40 MG TABLET PO SCH (21:03)
[2019-11-10] MEDS: DEXMEDETOMIDINE IN NS 400 MCG/100 ML RTUPB IV PRN ×4 (01:30→23:29)
[2019-11-10] MEDS: METRONIDAZOLE 500 MG/NS RTU 500 MG/100 ML RTUPB IV SCH ×4 (02:10→21:16)
[2019-11-10] MEDS: IPRATROPIUM/ALBUTEROL 0.5-2.5 MG/3 ML AMPUL NEB SCH ×4 (02:23→19:42)
[2019-11-10 04:44] LABS: HEMOGLOBIN 13.7 g/dL (13.5-17.0); MEAN CORPUSCULAR HEMOGLOBIN 30.3 pg (27.0-33.4); MEAN CORPUSCULAR HGB CONC 33.5 g/dL (32.0-36.0); MEAN CORPUSCULAR VOLUME 90 fl (80-97); PLATELET COUNT 228 10^3/uL (150-450); RED BLOOD COUNT 4.54 10^6/uL (4.35-5.55); WHITE BLOOD COUNT 17.1 10^3/uL (4.0-10.5)
[2019-11-10 05:05] LABS: ABSOLUTE LYMPHOCYTES# (MANUAL) 0.3 10^3/uL (0.5-4.7); ABSOLUTE MONOCYTES # (MANUAL) 1.4 10^3/uL (0.1-1.4); BAND NEUTROPHILS % (MANUAL) 1 % (3-5); BASOPHILS % (MANUAL) 0 % (0-2); EOSINOPHILS % (MANUAL) 0 % (0-6); LYMPHOCYTES % (MANUAL) 2 % (13-45); MONOCYTES % (MANUAL) 8 % (3-13); PLATELET COMMENT ADEQUATE; RBC MORPHOLOGY COMMENT NORMO-CYTIC/CHROMIC; SEGMENTED NEUTROPHILS % (MAN) 89 % (42-78); TOTAL CELLS COUNTED 100; TOXIC VACUOLATION PRESENT
[2019-11-10 05:07] LABS: ANION GAP 7 (5-19); BLOOD UREA NITROGEN 35 mg/dL (7-20); CALCIUM 8.2 mg/dL (8.4-10.2); CARBON DIOXIDE 27 mmol/L (22-30); CHLORIDE 104 mmol/L (98-107); GLUCOSE 273 mg/dL (75-110); PHOSPHORUS 3.6 mg/dL (2.5-4.5); POTASSIUM 4.2 mmol/L (3.6-5.0)
[2019-11-10] MEDS: CLOTRIMAZOLE 1% CREAM 15 GM TP SCH ×3 (05:54→21:14)
[2019-11-10] MEDS: HYDROCORTISONE SOD SUCCINATE INJ/PF 100 MG/2 ML SDV IV SCH ×4 (05:54→21:11)
[2019-11-10] MEDS: CEFEPIME 1 GM/D5W RTU 1 GM/50 ML RTUPB IV SCH ×2 (05:55→17:42)
[2019-11-10] MEDS: INSULIN LISPRO 100 UNIT/ML 3 ML VIAL SUBCUT SCH ×4 (05:56→23:55)
[2019-11-10 06:22] LABS: ARTERIAL BLOOD BASE EXCESS 3.5 mmol/L; ARTERIAL BLOOD FIO2 40%; ARTERIAL BLOOD H2CO3 1.31 mmol/L (1.05-1.35); ARTERIAL BLOOD HCO3 28.4 mmol/L (20-24); ARTERIAL BLOOD O2 SATURATION 96.5 % (94-98); ARTERIAL BLOOD PCO2 43.6 mmHg (35-45); ARTERIAL BLOOD PH 7.43 (7.35-7.45); ARTERIAL BLOOD PO2 84.2 mmHg (80-100); ARTERIAL BLOOD TOTAL CO2 29.7 mmol/L (23-27)
--- NOTE | 2019-11-10 08:56 | RADIOLOGY REPORT (SQ) ---
EXAM DESCRIPTION: CHEST SINGLE VIEW IMAGES COMPLETED DATE/TIME: 11/10/2019 7:03 am REASON FOR STUDY: aspiration COMPARISON: 11/09/2019 NUMBER OF VIEWS: One view. TECHNIQUE: Single frontal radiographic image of the chest acquired. LIMITATIONS: None. FINDINGS: LUNGS AND PLEURA: Chronic interstitial changes. No infiltrate or pneumothorax. MEDIASTINUM AND HEART: Stable heart size and mediastinal structures. SUPPORT DEVICES: Appropriate location without change. BONY STRUCTURES: No acute findings. HARDWARE: None. OTHER: No other significant finding. IMPRESSION: STABLE APPEARANCE OF THE CHEST. SUPPORT DEVICES UNCHANGED. Reading location - IP/workstation name: [email or web address]
[2019-11-10] MEDS: FLUTICASONE NASAL SPRAY 50 MCG/SPRY 120 SPRAY/16 GM NASL SCH (10:16)
[2019-11-10] MEDS ORDERED: FENTANYL CITRATE INJ/PF 100 MCG/2 ML AMPUL IV ONE ×2 (13:37→21:00)
[2019-11-10] MEDS ORDERED: FENTANYL CITRATE INJ/PF 100 MCG/2 ML AMPUL ONE ×2 (13:40→20:42)
--- NOTE | 2019-11-10 14:12 | PDOC CRITICAL CARE PROG REPORT ---
General Date:: 11/10/19 ICU Day:: 3 Ventilator Day:: 3 Hospital Day:: 3 Resuscitation Status: Full Code Medical Power of Psychological Aide: Events in the past 12 to 24 Hours:: 11.10.2019: Patient has had increased activity follow commands. He is starting to track and moving his extremities indiscriminately. He was transitioned from propofol to Precedex. Glucose has improved and his blood pressure is now elevated. He is not on any vasopressor therapy. 11.09.2019: Patient remains in a comatose state however has required propofol for occasional restless movements of his extremities. He has shown gram-negative's in his sputum and gram-positive's on blood culture. He was started on broad-spectrum antibiotics on admission for cellulitis. Urine shows positive leukocyte esterase and WBCs. He has had low urine output reported by the nurses this morning. Review of systems relevant to events:: 11.10.2019: Patient's cultures have shown Enterobacter in sputum, E. coli in urine both of which are pansensitive and a staph species and blood cultures. Blood pressure has been elevated. Heart rate has been controlled and there is not been any tachycardia. Patient had low urine output and tachycardia yesterday which responded to fluid bolus. 11.09.2019: No seizure activity noted. Low urine output noted. Patient has had a penile implant. Reason for ICU Addmission:: Hypoglycemic coma with need for mechanical ventilation - Medications: Vasopressors:: None Sedation:: Precedex Physical Exam Vital Signs: Temp Pulse Resp BP Pulse Ox 97.2 F 79 18 183/99 H 100 11/10/19 12:00 11/10/19 13:44 11/10/19 13:44 11/10/19 12:00 11/10/19 13:44 Intake & Output 11/09/19 11/10/19 11/11/19 06:59 06:59 06:59 Intake Total 1185 2587 197 Output Total 23 2200 835 Balance 1162 411 -638 Weight 97.4 kg 99.2 kg Weight/Height Weight 99.2 kg Height 5 ft 11 in General appearance: PRESENT: no acute distress, obese Exam: Intubated, nontoxic 4-year-old male who is unresponsive. On my examination with 0.6 mcg of dexmedetomidine he has withdrawal movements in his lower extremities. Head exam: PRESENT: atraumatic, normocephalic Eye exam: PRESENT: conjunctiva pink, PERRLA. ABSENT: conjunctival injection, nystagmus, scleral icterus Mouth exam: PRESENT: moist, neck supple Neck exam: ABSENT: JVD, lymphadenopathy, tenderness, thyromegaly, tracheal deviation Respiratory exam: PRESENT: unlabored, other - Lung sounds not auscultated secondary to the confines of PPE and poor auditory capability of disposable stethoscope. ABSENT: accessory muscle use, prolonged expiratory phas, tachypnea Cardiovascular exam: PRESENT: irregular rhythm, other - Heart sounds not auscu ltated secondary to the confines of PPE and poor auditory capability of disposable stethoscope heart. ABSENT: tachycardia Pulses: ABSENT: normal dorsalis pedis pul Vascular exam: PRESENT: normal capillary refill. ABSENT: pallor GI/Abdominal exam: PRESENT: soft, other - Gastric sounds not auscultated secondary to the confines of PPE and poor auditory capability of disposable stethoscope. ABSENT: ascites, distended, firm, guarding, organolmegaly, rebound, rigid, tenderness Rectal exam: PRESENT: deferred Gentrourinary exam: PRESENT: indwelling catheter Extremities exam: ABSENT: pedal edema Musculoskeletal exam: PRESENT: other - Ulceration of the plantar aspect of the right great toe is clean dry no erythema early granulation noted. There is no ischemic changes. ABSENT: dislocation Neurological exam: PRESENT: altered, other - Intubated, he responds to noxious stimulation in the lower extremities (feet). Babinski's are equivocal. With reduction and Precedex noted to be moving all extremities but not following commands. Nursing reports tracking of their evaluation. Skin exam: PRESENT: erythema - Erythema lower extremities very much improved with minimal amount present. Furrowed skin improved. Tubes/Lines: PRESENT: Endotracheal Tube, Other - OG tube, Ellsworth Laboratory/Radiographs Laboratory Results: 11/10/19 04:14 11/10/19 04:14 11/10/19 11/10/19 11/10/19 04:14 04:14 06:14 WBC 17.1 H RBC 4.54 Hgb 13.7 Hct 41.0 MCV 90 MCH 30.3 MCHC 33.5 RDW 14.0 Plt Count 228 Seg Neutrophils % Not Reportable Carbonic Acid 1.31 HCO3/H2CO3 Ratio 21:1 ABG pH 7.43 ABG pCO2 43.6 ABG pO2 84.2 ABG HCO3 28.4 H ABG O2 Saturation 96.5 ABG Base Excess 3.5 FiO2 40% Sodium 138.0 Potassium 4.2 Chloride 104 Carbon Dioxide 27 Anion Gap 7 BUN 35 H Creatinine 2.35 H Est GFR ( Amer) 33 L Glucose 273 H Calcium 8.2 L Phosphorus 3.6 Magnesium 2.0 11/08/19 15:23 Blood Blood Culture (PCR) - Final Staphylococcus Species 11/08/19 15:00 Blood Blood Culture (PCR) - Final Staphylococcus Species 11/08/19 17:30 Ellsworth Catheter Urine Culture - Final Escherichia Coli 11/08/19 11/08/19 15:23 15:23 Creatine Kinase 200 H Troponin I 0.093 Impressions: Head CT 11/08/19 12:29 IMPRESSION: CHRONIC CHANGES OF ATROPHY AND MICROVASCULAR ISCHEMIA. NO ACUTE PROCESS. EVIDENCE OF ACUTE STROKE: NO. Chest X-Ray 11/10/19 06:00 IMPRESSION: STABLE APPEARANCE OF THE CHEST. SUPPORT DEVICES UNCHANGED. All labs, radiographs, diagnostic studies and EKGs were personally reviewed: Yes In addition, reports of radiographic and diagnostic studies were read: Yes Assessment and Plan - Diagnosis (1) Sepsis with acute organ dysfunction without septic shock Qualifiers: Sepsis type: sepsis due to unspecified organism Severe sepsis acute organ dysfunction type: acute renal failure Acute renal failure type: with acute tubular necrosis Qualified Code(s): A41.9 - Sepsis, unspecified organism; R65.20 - Severe sepsis without septic shock; N17.0 - Acute kidney failure with tubular necrosis Is this a current diagnosis for this admission?: Yes (2) Gram-positive cocci bacteremia Is this a current diagnosis for this admission?: Yes (3) Aspiration into lower respiratory tract Qualifiers: Encounter type: initial encounter Qualified Code(s): T17.800A - Unspecified foreign body in other parts of respiratory tract causing asphyxiation, initial encounter Is this a current diagnosis for this admission?: Yes (4) Acute respiratory failure with hypoxia and hypercapnia Is this a current diagnosis for this admission?: Yes (5) Hypoglycemic coma due to diabetes mellitus Is this a current diagnosis for this admission?: Yes (6) Hypoglycemia Is this a current diagnosis for this admission?: Yes (7) Bilateral lower leg cellulitis Is this a current diagnosis for this admission?: Yes (8) CKD (chronic kidney disease) Qualifiers: Chronic kidney disease stage: unspecified stage Qualified Code(s): N18.9 - Chronic kidney disease, unspecified Is this a current diagnosis for this admission?: Yes (9) Longstanding persistent atrial fibrillation Is this a current diagnosis for this admission?: Yes (10) Hypothyroidism Is this a current diagnosis for this admission?: Yes Plan Summary: 11.09.3029: Respiratory: Patient's respiratory status is still tenuous given his neurological dysfunction. He is unable to be liberated from the ventilator. He does have organisms growing in his sputum that are sensitive to the current antibiotics. Reevaluation for liberation from mechanical ventilation will occur when his respiratory and neurological status improved. On evaluation of vent mechanics patient was placed on pressure support but was unable to obtain a strong tidal volume or minute ventilation. We will continue to monitor. Infectious: Patient has multiple sites of possible infection. He is blood culture positivity appears to come from lower extremity cellulitis. Cellulitis has improved. There are staph species so we will continue vancomycin. Await speciation. He has Enterobacter in his sputum and will continue antibiotics. We will continue for up to 5 to 7 days given the clearance of his chest x-ray. Unfortunately procalcitonin's are not immediately available to guide therapy. He also has positive urinary tract infection with E. coli. This is sensitive. We will continue current antibiotics And evaluation of his labs and clinical situation I am not concerned that the patient has SARSCOVID 19. We are still awaiting official confirmation. Continue in isolation. Cardiac: Patient's tachycardia has improved. He has a history of atrial fibrillation and is on anticoagulation. Precedex has helped to maintain stable heart rate as well. Given the elevation in his blood pressure we will begin to wean steroids. Hematologic/Oncologic: No active issues other than the use of heparin. Platelet count is unremarkable. Does have elevation in his white count which may be from steroids. Continue to monitor Endocrine: Patient has been on steroids dysemia. Both of which have improved. D5W has been discontinued. Blood glucose has been elevated and will continue to monitor with reduction in steroids. I am reticent to start him on long-acting treatment given his recent hypoglycemic event. If glucose continues to be elevated will place on low-dose long-acting therapy Renal: Patient has acute on chronic renal failure. We do not know his current stable baseline prior to admission. Estimated CKD is 4. He does not require any distinct treatment other than nutritional support. Metabolic: Despite renal failure patient has had no electrolyte abnormalities. Continue to monitor Alimentary: Patient is tolerating tube feeds continue to monitor Neurologic: Patient has had some improvement neurologically however requires Precedex to prevent agitation. Will provide some analgesia to assure. Attempt to wean sedation close observation. Sedation/analgesia: Precedex. PRN Fentanyl Lines/Tubes: Peripheral IVs and Ellsworth Other/family: Will attempt to contact family 11.09.2019: Patient still remains a comatose state but has required propofol secondary to motor movements. These are not seizure related. We will begin to reduce sedation to determine adequate neurological exam. Patient has gram-negative organisms in his urine and sputum. He has gram- positive cocci on blood culture. His erythema in his legs has improved significantly. At this point we are awaiting neurological recovery to begin the process of weaning from mechanical ventilation. His glucose has improved as well and we have taken him off D5W. We will give supplemental insulin but no long-acting insulin. Both his blood pressure and glucose seem to have improved with the initiation of Solu-Cortef. He may have had an underlying degree of adrenal insufficiency. Continue on broad-spectrum antibiotics and antifungal cream to legs. Continue heparin for his atrial fibrillation. Wean propofol. Awaiting COVID-19 testing Patient has acute on chronic renal failure. We do not have a baseline creati nine since his last admission to adequately determine what level of chronic kidney disease he has. He remains comatose and I am suspicious that his hypoglycemic event has caused undue neurological dysfunction. He has had low urine output will need to be prudent to watch for worsening renal function. Continue IV fluids. In addition I gave him a bolus dose of fluids. 11.08.2019: Respiratory: Patient has hypercarbic and hypoxic respiratory failure which may be a manifestation of his hypoglycemic comatose state. We will attempt to wean mechanical ventilation as his neurological and respiratory status improves. He has a history of COPD that is intermittently oxygen requiring. His chest x-ray does not show any significant findings. We will continue to monitor for a spiration pneumonitis and/or pneumonia. Infectious: Patient has bilateral erythema of his lower extremities. Have started broad-spectrum antibiotics, obtain blood cultures and will obtain urinalysis. Have also added antifungal therapy for the legs. Monitor procalcitonin. Cardiac: Patient appears to have atrial fibrillation which is persistent controlled ventricular response. He is supposed to be on rivaroxaban however had discontinued this because of bleeding when he traumatized his skin. Will need to re-institute anticoagulation especially given his low heart rate in the form of IV heparin. His skin is furrowed on exam suggestive of hypovolemia/dehydration. We will give supplemental bolus of LR and place him on D5 LR given his hypoglycemia. Hematologic: Will recheck coagulation parameters, d-dimer and institute heparin therapy if parameters are suitable. Follow platelets. Endocrine: Patient had hypoglycemia on initial presentation. This may be a combination of insulin therapy in the face of renal failure and/or unintentional overdosage. In addition he may have adrenal insufficiency and of check a cortisol level. I have preemptively started him on hydrocortisone for both its mineral and glucocorticoid effects. We will check the results. Have also ordered TSH given the fact that he has hypothyroidism to assure that there is no worsening thyroid function. Renal: Patient had a creatinine of 2.26 more than a year ago. We are not privy to his recent creatinine and labs are still pending. Will need to follow-up on this and adjust medications accordingly. Metabolic: We will check ammonia level as well as follow his pH with a repeat ABG. Replace electrolytes as needed. His QTC is slightly elevated and will need to make sure his magnesium is high to normal. Alimentary: Need to start nutritional support within the next 24 hours. Neurologic: Patient appears to have coma secondary to hypoglycemic event. Continue to monitor his neurological status determine suitability removal from mechanical ventilation. Sedation/analgesia: Patient has been ordered propofol because of agitation while on the ventilator. Lines/Tubes: Patient has peripheral IVs Other/family: Discussed prognosis case and care with family who are at bedside. Critical Time Critical Time (minutes): 45 Level of Care: ICU Anticipated discharge: Acute Rehab Anticipated DC Timeframe: Other - Undetermined timeframe given current clinical condition -: 1. The care of a critical patient is a dynamic process. This note is a it sales representative synopsis but static in nature. The timeframe for treatments given in order is not necessarily the actual time these treatments may have been done. 2. This patient requires critical care secondary to ongoing requirements for therapy not offered or safe outside the critical care environment. Transfer to a lower level of care will result in altered life or limb morbidity and mortality. 3. Multidisciplinary rounds completed. 4. ABCDE bundle addressed.
[2019-11-10] MEDS: RINGERS SOLUTION,LACTATED 1,000 ML IV PRN (16:03)
[2019-11-10] MEDS: HEPARIN SODIUM,PORCINE/D5W 25,000 UNIT/250 ML RTUINJ IV PRN (17:38)
[2019-11-10 18:39] LABS: ARTERIAL BLOOD BASE EXCESS 4.7 mmol/L; ARTERIAL BLOOD FIO2 40%; ARTERIAL BLOOD H2CO3 1.12 mmol/L (1.05-1.35); ARTERIAL BLOOD O2 SATURATION 98.1 % (94-98); ARTERIAL BLOOD PCO2 37.2 mmHg (35-45); ARTERIAL BLOOD PO2 103.3 mmHg (80-100); ARTERIAL BLOOD TOTAL CO2 29.2 mmol/L (23-27)
[2019-11-10] MEDS ORDERED: LABETALOL HCL INJ 20 MG/4 ML DISP.SYRIN IV ONE (19:56)
[2019-11-10] MEDS: VANCOMYCIN HCL 1,000 MG in DEXTROSE 5%-WATER 250 ML IV SCH (20:06)
[2019-11-10] MEDS ORDERED: ZIPRASIDONE MESYLATE INJ/PF 20 MG SDV IM ONE (21:31)
[2019-11-10] MEDS: FAMOTIDINE 20 MG TABLET NG SCH (22:00)
[2019-11-10] MEDS: ATORVASTATIN CALCIUM 40 MG TABLET PO SCH (22:00)
[2019-11-10 22:07] LABS: ARTERIAL BLOOD BASE EXCESS 0 mmol/L; ARTERIAL BLOOD H2CO3 1.32 mmol/L (1.05-1.35); ARTERIAL BLOOD HCO3 25.4 mmol/L (20-24); ARTERIAL BLOOD O2 SATURATION 91.1 % (94-98); ARTERIAL BLOOD PCO2 43.9 mmHg (35-45); ARTERIAL BLOOD PH 7.38 (7.35-7.45); ARTERIAL BLOOD PO2 61.5 mmHg (80-100); ARTERIAL BLOOD TOTAL CO2 26.7 mmol/L (23-27)
[2019-11-10 22:08] LABS: ARTERIAL BLOOD FIO2 ROOM AIR
[2019-11-11] MEDS ORDERED: HYDRALAZINE HCL INJ/PF 20 MG/1 ML SDV IV ONE (02:07)
--- NOTE | 2019-11-11 02:22 | XCELERA REPORT ---
[address] [address] Transthoracic Echocardiogram Report Name: TWYLA MILLAN Age: 74 yrs Gender: Male : 1945 Patient Status: Inpatient Patient Location: ICU^601^A Study Date: 11/10/2019 10:23 AM Height: 71 in Weight: 214 lb BSA: 2.2 m2 Procedure: A two-dimensional transthoracic echocardiogram with color flow and Doppler was performed. The study was technically limited with all images being suboptimal in quality. Reason For Study: Endocarditis History: Endocarditis. Ordering Physician: DIMA ISAAC Performed By: Farrah Tyler Interpretation Summary No evidence of endocarditis.If clinical suspicion is high recommend MARY. The left ventricle is normal in size. LV EF is 65% to 70% Doppler measurements suggest impaired left ventricular relaxation, which is associated with grade I/IV or mild diastolic dysfunction The left ventricular wall motion is normal. There is no thrombus. No ASD ,VSD , or PFO seen, The right ventricle is normal in size and function. The right ventricle is not well visualized secondary to technical limitations The right atrium is normal. Right atrium not well visualized secondary to technical limitations The left atrium is moderately dilated. There is no evidence of mitral valve prolapse. There is no vegetation seen on the mitral valve. There is no mitral valve stenosis. There is a trace to mild amount of mitral regurgitation There is no aortic valvular vegetation. There is aortic sclerosis without aortic stenosis. There is no LVOT obstruction. No aortic regurgitation is present. There is no tricuspid stenosis. There is a trace to mild amount of tricuspid regurgitation RVSP is 35 to 40 mm of Hg. The pulmonic valve is not well visualized. There is no pulmonic valvular stenosis. There is a trace amount of pulmonic regurgitation The aortic root is normal size. The inferior vena cava appeared normal and decreased > 50% with respiration (RAP 5-10 mmHg) No evidence of endocarditis.If clinical suspicion is high recommend MARY. MMode/2D Measurements & Calculations RVDd: 3.7 cm LVIDd: 4.5 cm FS: 42.3 % Ao root diam: 2.6 cm IVSd: 1.1 cm LVIDs: 2.6 cm EDV(Teich): 91.4 ml Ao root area: 5.3 cm2 LVPWd: 1.1 cm ESV(Teich): 24.2 ml LA dimension: 4.7 cm EF(Teich): 73.5 % Doppler Measurements & Calculations MV E max riya: MV P1/2t max riya: Ao V2 max: LV V1 max P.9 cm/sec 87.4 cm/sec 142.4 cm/sec 5.2 mmHg MV A max riya: MV P1/2t: 68.6 msec Ao max P.1 mmHgLV V1 max: 96.3 cm/sec MVA(P1/2t): 3.2 cm2 113.5 cm/sec MV E/A: 0.91 MV dec slope: 373.1 cm/sec2 MV dec time: 0.22 sec PA V2 max: TR max riya: MV P1/2t-pr_phl: 109.1 cm/sec 275.8 cm/sec 68.6 msec PA max P.8 mmHgTR max P.4 mmHg Left Ventricle The left ventricle is normal in size. There is normal left ventricular wall thickness. Left ventricular systolic function is normal. LV EF is 65% to 70%. Doppler measurements suggest impaired left ventricular relaxation, which is associated with grade I/IV or mild diastolic dysfunction. The left ventricular wall motion is normal. There is no thrombus. No ASD ,VSD , or PFO seen,. Right Ventricle The right ventricle is normal in size and function. The right ventricle is not well visualized secondary to technical limitations. Atria The right atrium is normal. Right atrium not well visualized secondary to technical limitations. The left atrium is moderately dilated. Mitral Valve There is no evidence of mitral valve prolapse. There is no vegetation seen on the mitral valve. There is no mitral valve stenosis. There is a trace to mild amount of mitral regurgitation. Aortic Valve There is no aortic valvular vegetation. There is no aortic valve stenosis. There is aortic sclerosis without aortic stenosis. There is no LVOT obstruction. No aortic regurgitation is present. Tricuspid Valve There is no tricuspid stenosis. There is a trace to mild amount of tricuspid regurgitation. There is mild pulmonary hypertension by echo. RVSP is 35 to 40 mm of Hg. Pulmonic Valve The pulmonic valve is not well visualized. There is no pulmonic valvular stenosis. There is a trace amount of pulmonic regurgitation. Great Vessels The aortic root is normal size. The inferior vena cava appeared normal and decreased > 50% with respiration (RAP 5-10 mmHg). Effusions There is no pericardial effusion. : DIMA ISAAC Lakshmi
[2019-11-11] MEDS: IPRATROPIUM/ALBUTEROL 0.5-2.5 MG/3 ML AMPUL NEB SCH ×4 (02:24→19:57)
[2019-11-11] MEDS: METRONIDAZOLE 500 MG/NS RTU 500 MG/100 ML RTUPB IV SCH ×4 (02:48→21:23)
[2019-11-11] MEDS ORDERED: ZIPRASIDONE MESYLATE INJ/PF 20 MG SDV IM ONE (03:05)
[2019-11-11] MEDS ORDERED: FENTANYL CITRATE INJ/PF 100 MCG/2 ML AMPUL IV ONE ×2 (03:08→15:00)
[2019-11-11] MEDS ORDERED: FENTANYL CITRATE INJ/PF 100 MCG/2 ML AMPUL ONE ×2 (03:10→14:42)
[2019-11-11] MEDS: DEXMEDETOMIDINE IN NS 400 MCG/100 ML RTUPB IV PRN ×6 (03:46→23:40)
[2019-11-11] MEDS: IPRATROPIUM/ALBUTEROL 0.5-2.5 MG/3 ML AMPUL NEB PRN (04:04)
[2019-11-11 04:52] LABS: HEMATOCRIT 41.5 % (37.9-51.0); HEMOGLOBIN 13.8 g/dL (13.5-17.0); MEAN CORPUSCULAR HEMOGLOBIN 30.1 pg (27.0-33.4); MEAN CORPUSCULAR HGB CONC 33.1 g/dL (32.0-36.0); MEAN CORPUSCULAR VOLUME 91 fl (80-97); PLATELET COUNT 219 10^3/uL (150-450); RED BLOOD COUNT 4.58 10^6/uL (4.35-5.55); RED CELL DISTRIBUTION WIDTH 13.7 % (11.5-14.0); WHITE BLOOD COUNT 18.2 10^3/uL (4.0-10.5)
[2019-11-11 04:57] LABS: ANION GAP 6 (5-19); BLOOD UREA NITROGEN 47 mg/dL (7-20); CALCIUM 8.2 mg/dL (8.4-10.2); CARBON DIOXIDE 31 mmol/L (22-30); CHLORIDE 102 mmol/L (98-107); GLUCOSE 240 mg/dL (75-110); PHOSPHORUS 4.5 mg/dL (2.5-4.5); POTASSIUM 3.6 mmol/L (3.6-5.0)
[2019-11-11 05:32] LABS: ABSOLUTE LYMPHOCYTES# (MANUAL) 1.3 10^3/uL (0.5-4.7); ABSOLUTE MONOCYTES # (MANUAL) 1.3 10^3/uL (0.1-1.4); BAND NEUTROPHILS % (MANUAL) 1 % (3-5); BASOPHILS % (MANUAL) 0 % (0-2); EOSINOPHILS % (MANUAL) 0 % (0-6); LYMPHOCYTES % (MANUAL) 5 % (13-45); MONOCYTES % (MANUAL) 7 % (3-13); SEGMENTED NEUTROPHILS % (MAN) 85 % (42-78); TOTAL CELLS COUNTED 100
[2019-11-11 05:33] LABS: PLATELET COMMENT ADEQUATE; RBC MORPHOLOGY COMMENT NORMO-CYTIC/CHROMIC
[2019-11-11] MEDS: INSULIN LISPRO 100 UNIT/ML 3 ML VIAL SUBCUT SCH ×4 (05:48→23:34)
[2019-11-11] MEDS: CLOTRIMAZOLE 1% CREAM 15 GM TP SCH ×3 (05:49→21:25)
[2019-11-11] MEDS: CEFEPIME 1 GM/D5W RTU 1 GM/50 ML RTUPB IV SCH ×2 (05:49→18:11)
[2019-11-11] MEDS: HYDROCORTISONE SOD SUCCINATE INJ/PF 100 MG/2 ML SDV IV SCH ×3 (05:50→21:24)
[2019-11-11 07:41] LABS: ARTERIAL BLOOD BASE EXCESS 4.3 mmol/L; ARTERIAL BLOOD H2CO3 1.57 mmol/L (1.05-1.35); ARTERIAL BLOOD HCO3 30.5 mmol/L (20-24); ARTERIAL BLOOD O2 SATURATION 98.9 % (94-98); ARTERIAL BLOOD PCO2 52.1 mmHg (35-45); ARTERIAL BLOOD PH 7.39 (7.35-7.45); ARTERIAL BLOOD PO2 150.8 mmHg (80-100); ARTERIAL BLOOD TOTAL CO2 32.1 mmol/L (23-27)
[2019-11-11 07:43] LABS: ARTERIAL BLOOD FIO2 4.5L
--- NOTE | 2019-11-11 08:47 | RADIOLOGY REPORT (SQ) ---
EXAM DESCRIPTION: CHEST SINGLE VIEW IMAGES COMPLETED DATE/TIME: 11/11/2019 6:47 am REASON FOR STUDY: aspiration COMPARISON: 11/10/2019 EXAM PARAMETERS: NUMBER OF VIEWS: One view. TECHNIQUE: Single frontal radiographic view of the chest acquired. RADIATION DOSE: NA LIMITATIONS: None. FINDINGS: LUNGS AND PLEURA: The patient has been extubated. There is bilateral interstitial airspac e disease not significantly changed from earlier film. No pneumothorax. MEDIASTINUM AND HILAR STRUCTURES: No masses. Contour normal. HEART AND VASCULAR STRUCTURES: Heart size is stable. There is central vascular prominence. BONES: No acute findings. HARDWARE: None in the chest. OTHER: No other significant finding. IMPRESSION: The patient has been extubated. There is central vascular congestion and prominence of interstitial markings. No focal consolidation or pneumothorax. TECHNICAL DOCUMENTATION: JOB ID: [id number] 2010 [employer]- All Rights Reserved Reading location - IP/workstation name: [email or web address]
[2019-11-11] MEDS: FLUTICASONE NASAL SPRAY 50 MCG/SPRY 120 SPRAY/16 GM NASL SCH (09:25)
[2019-11-11] MEDS: HEPARIN SODIUM,PORCINE/D5W 25,000 UNIT/250 ML RTUINJ IV PRN (16:52)
[2019-11-11] MEDS ORDERED: PHARMACY COMMUNICATION ORDER MC NR (18:00)
--- NOTE | 2019-11-11 18:11 | PDOC CRITICAL CARE PROG REPORT ---
General Date:: 11/11/19 ICU Day:: 4 Hospital Day:: 4 Resuscitation Status: Full Code Medical Power of Telephone Supervisor: Events in the past 12 to 24 Hours:: 11.11.2019: Patient was successfully extubated yesterday. He has been intermitte ntly confused with agitated delirium. He is required Precedex to maintain safety and he is required restraints. He has been improving and is now answering questions but still has agitation at times. He has had no hypotension and in fact his blood pressure has been slightly elevated. He has not received his Neurontin and this was reordered and an NG tube was ordered so that patient may receive nutrition and medications. No seizures have been noted 11.10.2019: Patient has had increased activity follow commands. He is starting to track and moving his extremities indiscriminately. He was transitioned from propofol to Precedex. Glucose has improved and his blood pressure is now elevated. He is not on any vasopressor therapy. 11.09.2019: Patient remains in a comatose state however has required propofol for occasional restless movements of his extremities. He has shown gram-negative's in his sputum and gram-positive's on blood culture. He was started on broad-spectrum antibiotics on admission for cellulitis. Urine shows positive leukocyte esterase and WBCs. He has had low urine output reported by the nurses this morning. Review of systems relevant to events:: 11.11.2019: Patient has significant culture data. He has Enterobacter cloaca E and MRSA in his sputum, E. coli in his urine blood cultures consistent with strep mitis and possible staph although this is not been completely speciated. He is on Precedex at 1.2 mcg/kg COVID testing is negative for disease 11.10.2019: Patient's cultures have shown Enterobacter in sputum, E. coli in urine both of which are pansensitive and a staph species and blood cultures. Blood pressure has been elevated. Heart rate has been controlled and there is not been any tachycardia. Patient had low urine output and tachycardia yesterday which responded to fluid bolus. 11.09.2019: No seizure activity noted. Low urine output noted. Patient has had a penile implant. Reason for ICU Addmission:: Hypoglycemic coma with need for mechanical ventilation - Medications: Vasopressors:: None Sedation:: Precedex Physical Exam Vital Signs: Temp Pulse Resp BP Pulse Ox 99.9 F 87 26 H 170/87 H 100 11/11/19 16:00 11/11/19 16:00 11/11/19 16:00 11/11/19 16:00 11/11/19 16:00 Intake & Output 11/10/19 11/11/19 11/12/19 06:59 06:59 06:59 Intake Total 2887 2288 628 Output Total 2200 2455 575 Balance 687 -557 53 Weight 99.2 kg 95.1 kg Weight/Height Weight 95.1 kg Height 5 ft 11 in General appearance: PRESENT: mild distress, obese Exam: Extubated, older appearing nontoxic but ill and very restless 74-year-old male Head exam: PRESENT: atraumatic, normocephalic Eye exam: PRESENT: PERRLA. ABSENT: conjunctival injection, nystagmus, scleral icterus Mouth exam: PRESENT: moist, neck supple Neck exam: ABSENT: carotid bruit, JVD, lymphadenopathy, tenderness, thyromegaly, tracheal deviation Respiratory exam: PRESENT: rhonchi, tachypnea - When agitated, unlabored. A BSENT: accessory muscle use, wheezes Cardiovascular exam: PRESENT: RRR, +S1, +S2. ABSENT: rubs, tachycardia Pulses: ABSENT: normal dorsalis pedis pul Vascular exam: PRESENT: normal capillary refill. ABSENT: pallor GI/Abdominal exam: PRESENT: normal bowel sounds, soft. ABSENT: ascites, distended, guarding, mass, organolmegaly, rebound, tenderness Rectal exam: PRESENT: deferred Gentrourinary exam: PRESENT: indwelling catheter Extremities exam: PRESENT: pedal edema Musculoskeletal exam: PRESENT: deformity - Has ulceration on right great toe which is healing well. No erythema or discharge.. ABSENT: dislocation Neurological exam: PRESENT: altered, other - Patient moves all extremities and will occasionally follow commands. He does answer in 1-2 word sentences but this is not consistent. There is no focal deficits. He has answered more questions when his family is present but he is agitated and restless Psychiatric exam: PRESENT: agitated Focused psych exam: PRESENT: psychomotor agitation, restlessness Skin exam: PRESENT: dry, intact, warm, other - Erythema in the legs is completel y resolved.. ABSENT: cyanosis, erythema, rash Laboratory/Radiographs Laboratory Results: 11/11/19 04:03 11/11/19 04:03 11/10/19 11/10/19 11/11/19 18:25 22:00 04:03 WBC 18.2 H RBC 4.58 Hgb 13.8 Hct 41.5 MCV 91 MCH 30.1 MCHC 33.1 RDW 13.7 Plt Count 219 Seg Neutrophils % Not Reportable Carbonic Acid 1.12 1.32 HCO3/H2CO3 Ratio 25:1 19:1 ABG pH 7.50 H 7.38 ABG pCO2 37.2 43.9 ABG pO2 103.3 H 61.5 L ABG HCO3 28.0 H 25.4 H ABG O2 Saturation 98.1 H 91.1 L ABG Base Excess 4.7 0 FiO2 40% ROOM AIR Sodium Potassium Chloride Carbon Dioxide Anion Gap BUN Creatinine Est GFR ( Amer) Glucose Calcium Phosphorus Magnesium 11/11/19 11/11/19 04:03 07:27 WBC RBC Hgb Hct MCV MCH MCHC RDW Plt Count Seg Neutrophils % Carbonic Acid 1.57 H HCO3/H2CO3 Ratio 19:1 ABG pH 7.39 ABG pCO2 52.1 H ABG pO2 150.8 H ABG HCO3 30.5 H ABG O2 Saturation 98.9 H ABG Base Excess 4.3 FiO2 4.5L Sodium 139.2 Potassium 3.6 Chloride 102 Carbon Dioxide 31 H Anion Gap 6 BUN 47 H Creatinine 2.01 H Est GFR ( Amer) 39 L Glucose 240 H Calcium 8.2 L Phosphorus 4.5 Magnesium 2.0 11/08/19 15:23 Blood Blood Culture (PCR) - Final Staphylococcus Species 11/08/19 17:30 Tracheal Aspirate Gram Stain - Final 11/08/19 17:30 Tracheal Aspirate Sputum Culture - Final Enterobacter Cloacae Mrsa (Meth Resis Staph Aureus) Normal Maryann 11/08/19 11/08/19 15:23 15:23 Creatine Kinase 200 H Troponin I 0.093 Impressions: Head CT 11/08/19 12:29 IMPRESSION: CHRONIC CHANGES OF ATROPHY AND MICROVASCULAR ISCHEMIA. NO ACUTE PROCESS. EVIDENCE OF ACUTE STROKE: NO. Chest X-Ray 11/11/19 06:00 IMPRESSION: The patient has been extubated. There is central vascular congestion and prominence of interstitial markings. No focal consolidation or pneumothorax. All labs, radiographs, diagnostic studies and EKGs were personally reviewed: Yes In addition, reports of radiographic and diagnostic studies were read: Yes Assessment and Plan - Diagnosis (1) Sepsis with acute organ dysfunction without septic shock Qualifiers: Sepsis type: sepsis due to unspecified organism Severe sepsis acute organ dysfunction type: acute renal failure Acute renal failure type: with acute tubular necrosis Qualified Code(s): A41.9 - Sepsis, unspecified organism; R65.20 - Severe sepsis without septic shock; N17.0 - Acute kidney failure with tubular necrosis Is this a current diagnosis for this admission?: Yes (2) Gram-positive cocci bacteremia Is this a current diagnosis for this admission?: Yes (3) Aspiration into lower respiratory tract Qualifiers: Encounter type: initial encounter Qualified Code(s): T17.800A - Unspecified foreign body in other parts of respiratory tract causing asphyxiation, initial encounter Is this a current diagnosis for this admission?: Yes (4) Acute respiratory failure with hypoxia and hypercapnia Is this a current diagnosis for this admission?: Yes (6) Acute metabolic encephalopathy Is this a current diagnosis for this admission?: Yes (7) Hypoglycemic coma due to diabetes mellitus Is this a current diagnosis for this admission?: Yes (8) Hypoglycemia Is this a current diagnosis for this admission?: Yes (9) Bilateral lower leg cellulitis Is this a current diagnosis for this admission?: Yes (10) CKD (chronic kidney disease) Qualifiers: Chronic kidney disease stage: unspecified stage Qualified Code(s): N18.9 - Chronic kidney disease, unspecified Is this a current diagnosis for this admission?: Yes (11) Longstanding persistent atrial fibrillation Is this a current diagnosis for this admission?: Yes (12) Hypothyroidism Is this a current diagnosis for this admission?: Yes Plan Summary: 11.11.2019: Patient's respiratory status has improved however he does appear to have aspiration pneumonia. He has some risk for possible reintubation should his agitation lead to aspiration. His chest x-ray is unremarkable. From an infectious disease standpoint patient has multiple organisms which are distinct and different in different organ systems. Have repeated blood cultures and these will need to be continually followed to see if there is clearance. He had significant cellulitis and an open wound on his right great toe which may have been the portal for bacteremia. His initial echocardiogram is negative for any vegetation but this was a transthoracic study. If his cultures remain positive he will need a transesophageal study. His urine is positive for E. coli which is moderately sensitive to most antibiotics. He does have an anaerobe growing in his bloodstream which may represent contaminant however we have continued the patient on Flagyl to affect anaerobic bacteria. From a cardiac standpoint his atrial fibrillation is under control presumably from the use of Precedex. He is on heparin and this will need to be monitored as well as his CBC and platelets. Blood pressure remains normal or elevated and will continue to wean steroids. Kidney function has improved and will need to monitor for volume overload. His ejection fraction is intact and there is no evidence of heart failure. Hypovolemic state is improved based on examination of his skin and overall improvement in kidney function Above all patient has agitated delirium control this with Precedex. It is reasonable given his presentation that he would have some degree of neurological dysfunction related to his hypoglycemic event. Notably, although agitated there is starting to be improvement in his sensorium and I would expect that he will remain on this trajectory. Hopefully with reduction in steroids, use of Neurontin this should improve. We will continue supportive care Follow-up on blood cultures and possible need for MARY 7..3030: Respiratory: Patient's respiratory status is still tenuous given his neurological dysfunction. He is unable to be liberated from the ventilator. He does have organisms growing in his sputum that are sensitive to the current antibiotics. Reevaluation for liberation from mechanical ventilation will occur when his respiratory and neurological status improved. On evaluation of [facility] patient was placed on pressure support but was unable to obtain a strong tidal volume or minute ventilation. We will continue to monitor. Infectious: Patient has multiple sites of possible infection. He is blood culture positivity appears to come from lower extremity cellulitis. Cellulitis has improved. There are staph species so we will continue vancomycin. Await speciation. He has Enterobacter in his sputum and will continue antibiotics. We will continue for up to 5 to 7 days given the clearance of his chest x-ray. Unfortunately procalcitonin's are not immediately available to guide therapy. He also has positive urinary tract infection with E. coli. This is sensitive. We will continue current antibiotics And evaluation of his labs and clinical situation I am not concerned that the patient has SARSCOVID 19. We are still awaiting official confirmation. Continue in isolation. Cardiac: Patient's tachycardia has improved. He has a history of atrial fibrillation and is on anticoagulation. Precedex has helped to maintain stable heart rate as well. Given the elevation in his blood pressure we will begin to wean steroids. Hematologic/Oncologic: No active issues other than the use of heparin. Platelet count is unremarkable. Does have elevation in his white count which may be from steroids. Continue to monitor Endocrine: Patient has been on steroids dysemia. Both of which have improved. D5W has been discontinued. Blood glucose has been elevated and will continue to monitor with reduction in steroids. I am reticent to start him on long-acting treatment given his recent hypoglycemic event. If glucose continues to be elevated will place on low-dose long-acting therapy Renal: Patient has acute on chronic renal failure. We do not know his current stable baseline prior to admission. Estimated CKD is 4. He does not require any distinct treatment other than nutritional support. Metabolic: Despite renal failure patient has had no electrolyte abnormalities. Continue to monitor Alimentary: Patient is tolerating tube feeds continue to monitor Neurologic: Patient has had some improvement neurologically however requires Precedex to prevent agitation. Will provide some analgesia to assure. Attempt to wean sedation close observation. Sedation/analgesia: Precedex. PRN Fentanyl Lines/Tubes: Peripheral IVs and [place] Other/family: Will attempt to contact family 11.09.2019: Patient still remains a comatose state but has required propofol secondary to motor movements. These are not seizure related. We will begin to reduce sedation to determine adequate neurological exam. Patient has gram-negative organisms in his urine and sputum. He has gram- positive cocci on blood culture. His erythema in his legs has improved significantly. At this point we are awaiting neurological recovery to begin the process of weaning from mechanical ventilation. His glucose has improved as well and we have taken him off D5W. We will give supplemental insulin but no long-acting insulin. Both his blood pressure and glucose seem to have improved with the initiation of Solu-Cortef. He may have had an underlying degree of adrenal insufficiency. Continue on broad-spectrum antibiotics and antifungal cream to legs. Continue heparin for his atrial fibrillation. Wean propofol. Awaiting COVID-19 testing Patient has acute on chronic renal failure. We do not have a baseline creatinine since his last admission to adequately determine what level of chronic kidney disease he has. He remains comatose and I am suspicious that his hypoglycemic event has caused undue neurological dysfunction. He has had low urine output will need to be prudent to watch for worsening renal function. Continue IV fluids. In addition I gave him a bolus dose of fluids. 11.08.2019: Respiratory: Patient has hypercarbic and hypoxic respiratory failure which may be a manifestation of his hypoglycemic comatose state. We will attempt to wean mechanical ventilation as his neurological and respiratory status improves. He has a history of COPD that is intermittently oxygen requiring. His chest x-ray does not show any significant findings. We will continue to monitor for aspiration pneumonitis and/or pneumonia. Infectious: Patient has bilateral erythema of his lower extremities. Have started broad-spectrum antibiotics, obtain blood cultures and will obtain urinalysis. Have also added antifungal therapy for the legs. Monitor procalcitonin. Cardiac: Patient appears to have atrial fibrillation which is persistent controlled ventricular response. He is supposed to be on rivaroxaban however had discontinued this because of bleeding when he traumatized his skin. Will need to re-institute anticoagulation especially given his low heart rate in the form of IV heparin. His skin is furrowed on exam suggestive of hypovolemia/dehydration. We will give supplemental bolus of LR and place him on D5 LR given his hypoglycemia. Hematologic: Will recheck coagulation parameters, d-dimer and institute heparin therapy if parameters are suitable. Follow platelets. Endocrine: Patient had hypoglycemia on initial presentation. This may be a combination of insulin therapy in the face of renal failure and/or unintentional overdosage. In addition he may have adrenal insufficiency and of check a cortisol level. I have preemptively started him on hydrocortisone for both its mineral and glucocorticoid effects. We will check the results. Have also ordered TSH given the fact that he has hypothyroidism to assure that there is no worsening thyroid function. Renal: Patient had a creatinine of 2.26 more than a year ago. We are not privy to his recent creatinine and labs are still pending. Will need to follow-up on this and adjust medications accordingly. Metabolic: We will check ammonia level as well as follow his pH with a repeat ABG. Replace electrolytes as needed. His QTC is slightly elevated and will need to make sure his magnesium is high to normal. Alimentary: Need to start nutritional support within the next 24 hours. Neurologic: Patient appears to have coma secondary to hypoglycemic event. Continue to monitor his neurological status determine suitability removal from mechanical ventilation. Sedation/analgesia: Patient has been ordered propofol because of agitation while on the ventilator. Lines/Tubes: Patient has peripheral IVs Other/family: Discussed prognosis case and care with family who are at bedside. Critical Time Critical Time (minutes): 45 Level of Care: ICU Anticipated discharge: Acute Rehab - Undetermined timeframe given current clinical condition -: 1. The care of a critical patient is a dynamic process. This note is a sales representative girls[employer]arel synopsis but static in nature. The timeframe for treatments given in order is not necessarily the actual time these treatments may have been done. 2. This patient requires critical care secondary to ongoing requirements for therapy not offered or safe outside the critical care environment. Transfer to a lower level of care will result in altered life or limb morbidity and mortality. 3. Multidisciplinary rounds completed. 4. ABCDE bundle addressed.
[2019-11-11] MEDS: RINGERS SOLUTION,LACTATED 1,000 ML IV PRN (18:12)
[2019-11-11] MEDS: GABAPENTIN 100 MG CAPSULE NG SCH (18:12)
--- NOTE | 2019-11-11 19:22 | RADIOLOGY REPORT (SQ) ---
EXAM DESCRIPTION: KUB/ABDOMEN (SINGLE VIEW) IMAGES COMPLETED DATE/TIME: 11/11/2019 7:12 pm REASON FOR STUDY: Check Placement of NG Tube COMPARISON: None. NUMBER OF VIEWS: One view. TECHNIQUE: Supine radiographic image of the upper abdomen acquired. LIMITATIONS: None. FINDINGS: BOWEL GAS PATTERN: Distended stomach. CALCIFICATIONS: No suspicious calcifications. SOFT TISSUES: No gross mass or suggestion of organomegaly. HARDWARE: Nasogastric tube, distal end in the stomach. BONES: No acute fracture. No worrisome bone lesions. OTHER: No other significant finding. IMPRESSION: TIP OF THE NASOGASTRIC TUBE IN THE STOMACH. TECHNICAL DOCUMENTATION: JOB ID: [id number] [employer]- All Rights Reserved Reading location - IP/workstation name: [email or web address]
[2019-11-11] MEDS: VANCOMYCIN HCL 1,000 MG in DEXTROSE 5%-WATER 250 ML IV SCH (19:57)
[2019-11-11] MEDS: FAMOTIDINE 20 MG TABLET NG SCH (21:24)
[2019-11-11] MEDS: ATORVASTATIN CALCIUM 40 MG TABLET NG SCH (21:24)
[2019-11-12] MEDS: GABAPENTIN 100 MG CAPSULE NG SCH ×3 (01:40→17:51)
[2019-11-12] MEDS: IPRATROPIUM/ALBUTEROL 0.5-2.5 MG/3 ML AMPUL NEB SCH ×4 (02:04→20:37)
[2019-11-12] MEDS: METRONIDAZOLE 500 MG/NS RTU 500 MG/100 ML RTUPB IV SCH (02:12)
[2019-11-12] MEDS: DEXMEDETOMIDINE IN NS 400 MCG/100 ML RTUPB IV PRN ×6 (03:16→22:50)
[2019-11-12] MEDS ORDERED: FENTANYL CITRATE INJ/PF 100 MCG/2 ML AMPUL IV ONE (04:38)
[2019-11-12] MEDS ORDERED: FENTANYL CITRATE INJ/PF 100 MCG/2 ML AMPUL ONE (04:40)
[2019-11-12] MEDS: INSULIN LISPRO 100 UNIT/ML 3 ML VIAL SUBCUT SCH ×3 (05:13→17:51)
[2019-11-12] MEDS: CEFEPIME 1 GM/D5W RTU 1 GM/50 ML RTUPB IV SCH ×2 (05:13→17:51)
[2019-11-12] MEDS: CLOTRIMAZOLE 1% CREAM 15 GM TP SCH ×3 (05:13→22:24)
[2019-11-12 05:14] LABS: HEMATOCRIT 39.8 % (37.9-51.0); MEAN CORPUSCULAR HGB CONC 32.7 g/dL (32.0-36.0); MEAN CORPUSCULAR VOLUME 92 fl (80-97); PLATELET COUNT 219 10^3/uL (150-450); RED BLOOD COUNT 4.33 10^6/uL (4.35-5.55); RED CELL DISTRIBUTION WIDTH 14.2 % (11.5-14.0); WHITE BLOOD COUNT 18.7 10^3/uL (4.0-10.5)
[2019-11-12 05:31] LABS: ABSOLUTE LYMPHOCYTES# (MANUAL) 1.5 10^3/uL (0.5-4.7); ABSOLUTE MONOCYTES # (MANUAL) 1.7 10^3/uL (0.1-1.4); BAND NEUTROPHILS % (MANUAL) 1 % (3-5); BASOPHILS % (MANUAL) 0 % (0-2); EOSINOPHILS % (MANUAL) 0 % (0-6); LYMPHOCYTES % (MANUAL) 8 % (13-45); MONOCYTES % (MANUAL) 9 % (3-13); SEGMENTED NEUTROPHILS % (MAN) 82 % (42-78); TOTAL CELLS COUNTED 100
[2019-11-12 05:32] LABS: PLATELET COMMENT ADEQUATE; RBC MORPHOLOGY COMMENT NORMO-CYTIC/CHROMIC
[2019-11-12 05:33] LABS: ANION GAP 9 (5-19); BLOOD UREA NITROGEN 56 mg/dL (7-20); CALCIUM 8.2 mg/dL (8.4-10.2); CARBON DIOXIDE 26 mmol/L (22-30); CHLORIDE 105 mmol/L (98-107); GLUCOSE 236 mg/dL (75-110); PHOSPHORUS 4.8 mg/dL (2.5-4.5); POTASSIUM 3.9 mmol/L (3.6-5.0)
--- NOTE | 2019-11-12 08:18 | PDOC CRITICAL CARE PROG REPORT ---
General Date:: 11/12/19 ICU Day:: 4 Hospital Day:: 4 Resuscitation Status: Full Code Medical Power of Safety Companion: Events in the past 12 to 24 Hours:: Still has delirium. Some bleeding , none now. Review of systems relevant to events:: Neurological, endocrine. Reason for ICU Addmission:: Hypoglycemic coma with need for mechanical ventilation. Now extubated but in 4 point restraints. - Medications: Medications reviewed and adjusted accordingly: Yes Vasopressors:: None Sedation:: Precedex Physical Exam Vital Signs: Temp Pulse Resp BP Pulse Ox 97.7 F 66 18 166/65 H 100 11/12/19 06:00 11/12/19 02:04 11/12/19 06:05 11/12/19 06:05 11/12/19 06:05 Intake & Output 11/11/19 11/12/19 11/13/19 06:59 06:59 06:59 Intake Total 2338 2694 Output Total 2845 2690 Balance -507 4 Weight 95.1 kg 94.9 kg Weight/Height Weight 94.9 kg Height 5 ft 11 in General appearance: PRESENT: no acute distress, other - Sleeping Head exam: PRESENT: atraumatic, normocephalic Eye exam: PRESENT: conjunctiva pink, EOMI, PERRLA. ABSENT: scleral icterus Ear exam: PRESENT: normal external ear exam Mouth exam: PRESENT: moist, tongue midline Neck exam: ABSENT: carotid bruit, JVD, lymphadenopathy, thyromegaly Respiratory exam: PRESENT: clear to auscultation reese, decreased breath sounds. ABSENT: rales, rhonchi, wheezes Cardiovascular exam: PRESENT: bradycardia, irregular rhythm, other - Occassional PVCs GI/Abdominal exam: PRESENT: normal bowel sounds, soft. ABSENT: distended, guarding, mass, organolmegaly, rebound, tenderness Rectal exam: PRESENT: deferred Gentrourinary exam: PRESENT: indwelling catheter, other - No urethral bleeding Neurological exam: PRESENT: CN II-XII grossly intact, other - Sedated Skin exam: PRESENT: dry, intact, warm. ABSENT: cyanosis, rash Laboratory/Radiographs Laboratory Results: 11/12/19 04:50 11/12/19 04:50 11/12/19 11/12/19 04:50 04:50 WBC 18.7 H RBC 4.33 L Hgb 13.0 L Hct 39.8 MCV 92 MCH 30.0 MCHC 32.7 RDW 14.2 H Plt Count 219 Seg Neutrophils % Not Reportable Sodium 139.6 Potassium 3.9 Chloride 105 Carbon Dioxide 26 Anion Gap 9 BUN 56 H Creatinine 2.05 H Est GFR ( Amer) 38 L Glucose 236 H Calcium 8.2 L Phosphorus 4.8 H Magnesium 1.9 11/08/19 15:23 Blood Blood Culture (PCR) - Final Staphylococcus Species 11/08/19 17:30 Tracheal Aspirate Gram Stain - Final 11/08/19 17:30 Tracheal Aspirate Sputum Culture - Final Enterobacter Cloacae Mrsa (Meth Resis Staph Aureus) Normal Maryann 11/08/19 11/08/19 15:23 15:23 Creatine Kinase 200 H Troponin I 0.093 Impressions: Head CT 11/08/19 12:29 IMPRESSION: CHRONIC CHANGES OF ATROPHY AND MICROVASCULAR ISCHEMIA. NO ACUTE PROCESS. EVIDENCE OF ACUTE STROKE: NO. KUB X-Ray 11/11/19 17:50 IMPRESSION: TIP OF THE NASOGASTRIC TUBE IN THE STOMACH. EKG: Slow atrial fibrillation at 58. Occassional PVC. 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 This may last days to resolve. He is sleeping which may help delirium. If he is pulling at devices and in 4 pt restraints I would not send him out of the ICU until he is more managable. (2) Aspiration into lower respiratory tract Qualifiers: Encounter type: initial encounter Qualified Code(s): T17.800A - Unspecified foreign body in other parts of respiratory tract causing asphyxiation, initial encounter Is this a current diagnosis for this admission?: Yes Plan: He does not have obvious x-ray findings of aspiration but this would not be surprising given his mental status. He is not awake enough to eat. Will start TF. (3) Bilateral lower leg cellulitis Is this a current diagnosis for this admission?: Yes Plan: Less erythematous. Biateral nature argues against cellulitis. (4) CKD (chronic kidney disease) Qualifiers: Chronic kidney disease stage: stage 3 (moderate) Qualified Code(s): N18.3 - Chronic kidney disease, stage 3 (moderate) Is this a current diagnosis for this admission?: Yes Plan: Creatinine has not changed, likely dehydrated. Increase fluids. Plan Summary: Start TF. Continue measures to decrease delirium. Mobilize, pain control sleep and reorientation. Still needs ICU for safety. Critical Time Critical Time (minutes): 35 Level of Care: ICU Anticipated discharge: SNF Anticipated DC Timeframe: Other -: 1. The care of a critical patient is a dynamic process. This note is a order entry representative synopsis but static in nature. The timeframe for treatments given in order is not necessarily the actual time these treatments may have been done. 2. This patient requires critical care secondary to ongoing requirements for therapy not offered or safe outside the critical care environment. Transfer to a lower level of care will result in altered life or limb morbidity and mortality. 3. Multidisciplinary rounds completed. 4. ABCDE bundle addressed.
[2019-11-12] MEDS: HYDROCORTISONE SOD SUCCINATE INJ/PF 100 MG/2 ML SDV IV SCH ×2 (09:04→22:22)
[2019-11-12] MEDS: FLUTICASONE NASAL SPRAY 50 MCG/SPRY 120 SPRAY/16 GM NASL SCH (09:04)
--- NOTE | 2019-11-12 09:39 | RADIOLOGY REPORT (SQ) ---
EXAM DESCRIPTION: CHEST SINGLE VIEW IMAGES COMPLETED DATE/TIME: 11/12/2019 6:34 am REASON FOR STUDY: aspiration COMPARISON: 11/11/2019. EXAM PARAMETERS: NUMBER OF VIEWS: One view. TECHNIQUE: Single frontal radiographic view of the chest acquired. RADIATION DOSE: NA LIMITATIONS: None. FINDINGS: LUNGS AND PLEURA: Diffuse interstitial prominence. No large pleural effusion. No pneumot horax. MEDIASTINUM AND HILAR STRUCTURES: No masses. Contour normal. HEART AND VASCULAR STRUCTURES: Stable cardiomegaly. BONES: No acute findings. HARDWARE: Nasogastric tube, tip in the stomach. OTHER: No other significant finding. IMPRESSION: NO SIGNIFICANT CHANGE IN APPEARANCE OF THE CHEST. TECHNICAL DOCUMENTATION: JOB ID: [id number] 2010 [employer]- All Rights Reserved Reading location - IP/workstation name: [email or web address]
[2019-11-12] MEDS: LINEZOLID 600 MG/300 ML RTUPB IV SCH ×2 (10:27→22:25)
[2019-11-12] MEDS: RINGERS SOLUTION,LACTATED 1,000 ML IV PRN (16:43)
[2019-11-12] MEDS: ATORVASTATIN CALCIUM 40 MG TABLET NG SCH (22:25)
[2019-11-12] MEDS: FAMOTIDINE 20 MG TABLET NG SCH (22:25)
[2019-11-13] MEDS: INSULIN LISPRO 100 UNIT/ML 3 ML VIAL SUBCUT SCH ×5 (00:19→23:56)
[2019-11-13] MEDS: IPRATROPIUM/ALBUTEROL 0.5-2.5 MG/3 ML AMPUL NEB SCH ×4 (02:24→20:40)
[2019-11-13] MEDS: GABAPENTIN 100 MG CAPSULE NG SCH ×4 (02:30→17:17)
[2019-11-13] MEDS: DEXMEDETOMIDINE IN NS 400 MCG/100 ML RTUPB IV PRN ×6 (03:12→20:37)
[2019-11-13] MEDS: CLOTRIMAZOLE 1% CREAM 15 GM TP SCH ×3 (05:11→21:22)
[2019-11-13] MEDS: CEFEPIME 1 GM/D5W RTU 1 GM/50 ML RTUPB IV SCH ×2 (05:11→17:50)
[2019-11-13 05:23] LABS: MEAN CORPUSCULAR HEMOGLOBIN 29.8 pg (27.0-33.4); MEAN CORPUSCULAR HGB CONC 32.6 g/dL (32.0-36.0); MEAN CORPUSCULAR VOLUME 91 fl (80-97); PLATELET COUNT 191 10^3/uL (150-450); RED BLOOD COUNT 4.38 10^6/uL (4.35-5.55); RED CELL DISTRIBUTION WIDTH 13.9 % (11.5-14.0)
[2019-11-13 05:43] LABS: ANION GAP 9 (5-19); BLOOD UREA NITROGEN 53 mg/dL (7-20); CALCIUM 8.2 mg/dL (8.4-10.2); CARBON DIOXIDE 29 mmol/L (22-30); CHLORIDE 102 mmol/L (98-107); GLUCOSE 251 mg/dL (75-110); POTASSIUM 3.6 mmol/L (3.6-5.0)
[2019-11-13 05:49] LABS: ABSOLUTE LYMPHOCYTES# (MANUAL) 0.6 10^3/uL (0.5-4.7); ABSOLUTE MONOCYTES # (MANUAL) 1.1 10^3/uL (0.1-1.4); BAND NEUTROPHILS % (MANUAL) 1 % (3-5); BASOPHILS % (MANUAL) 0 % (0-2); EOSINOPHILS % (MANUAL) 0 % (0-6); LYMPHOCYTES % (MANUAL) 4 % (13-45); MONOCYTES % (MANUAL) 7 % (3-13); SEGMENTED NEUTROPHILS % (MAN) 88 % (42-78); TOTAL CELLS COUNTED 100
[2019-11-13 05:50] LABS: PLATELET COMMENT ADEQUATE; RBC MORPHOLOGY COMMENT NORMO-CYTIC/CHROMIC
--- NOTE | 2019-11-13 08:28 | PDOC CRITICAL CARE PROG REPORT ---
General Date:: 11/13/19 ICU Day:: 5 Hospital Day:: 5 Resuscitation Status: Full Code Medical Power of Asthma Educator: Events in the past 12 to 24 Hours:: Still delirious, pulled out NG Review of systems relevant to events:: Neurological, endocrine. Reason for ICU Addmission:: Occassional delirium out of control requiring restraints, sometimes 4 point. - Medications: Medications reviewed and adjusted accordingly: Yes Vasopressors:: None Sedation:: Precedex Physical Exam Vital Signs: Temp Pulse Resp BP Pulse Ox 98.2 F 62 18 179/79 H 99 11/13/19 05:36 11/13/19 07:00 11/13/19 06:07 11/13/19 06:07 11/13/19 06:07 Intake & Output 11/12/19 11/13/19 11/14/19 06:59 06:59 06:59 Intake Total 2694 2240 Output Total 2690 2785 Balance 4 -545 Weight 94.9 kg 93.9 kg Weight/Height Weight 93.9 kg Height 5 ft 11 in General appearance: PRESENT: no acute distress, disheveled Head exam: PRESENT: atraumatic, normocephalic Eye exam: PRESENT: conjunctiva pink, EOMI, PERRLA. ABSENT: scleral icterus Ear exam: PRESENT: normal external ear exam Respiratory exam: PRESENT: clear to auscultation reese, rhonchi. ABSENT: rales, wheezes Cardiovascular exam: PRESENT: RRR. ABSENT: diastolic murmur, rubs, systolic murmur GI/Abdominal exam: PRESENT: normal bowel sounds, soft, other - When agitated and straining, evidence of an abdominal wall hernia. Large and not incarcerated.. ABSENT: distended, guarding, mass, organolmegaly, rebound, tenderness Rectal exam: PRESENT: deferred Gentrourinary exam: PRESENT: indwelling catheter Extremities exam: PRESENT: full ROM. ABSENT: calf tenderness, clubbing, pedal edema Musculoskeletal exam: PRESENT: normal inspection Neurological exam: PRESENT: alert, altered, awake, CN II-XII grossly intact Psychiatric exam: PRESENT: agitated Skin exam: PRESENT: dry, intact, warm. ABSENT: cyanosis, rash Laboratory/Radiographs Laboratory Results: 11/13/19 04:59 11/13/19 04:59 11/12/19 11/13/1920 19:26 04:59 04:59 WBC 16.0 H RBC 4.38 Hgb 13.0 L Hct 40.0 MCV 91 MCH 29.8 MCHC 32.6 RDW 13.9 Plt Count 191 Seg Neutrophils % Not Reportable Sodium 139.6 Potassium 3.6 Chloride 102 Carbon Dioxide 29 Anion Gap 9 BUN 53 H Creatinine 1.92 H 1.93 H Est GFR ( Amer) 41 L 41 L Glucose 251 H Calcium 8.2 L 11/08/19 15:00 Blood Blood Culture (PCR) - Final Staphylococcus Species 11/08/19 15:00 Blood Blood Culture - Final Staphylococcus Epidermidis 11/08/19 15:23 Blood Blood Culture (PCR) - Final Staphylococcus Species 11/08/19 15:23 Blood Blood Culture - Final Staphylococcus Epidermidis Streptococcus Mitis 11/08/19 11/08/19 15:23 15:23 Creatine Kinase 200 H Troponin I 0.093 Impressions: Head CT 11/08/19 12:29 IMPRESSION: CHRONIC CHANGES OF ATROPHY AND MICROVASCULAR ISCHEMIA. NO ACUTE PROCESS. EVIDENCE OF ACUTE STROKE: NO. KUB X-Ray 11/11/19 17:50 IMPRESSION: TIP OF THE NASOGASTRIC TUBE IN THE STOMACH. Chest X-Ray 11/12/19 06:00 IMPRESSION: NO SIGNIFICANT CHANGE IN APPEARANCE OF THE CHEST. All labs, radiographs, diagnostic studies and EKGs were personally reviewed: Yes In addition, reports of radiographic and diagnostic studies were read: Yes Assessment and Plan - Diagnosis (1) Delirium due to another medical condition, acute, hyperactive Is this a current diagnosis for this admission?: Yes Plan: Still delirious. Family was in yesterday and said he has gotten like this before with hypoglycemia. (2) Aspiration into lower respiratory tract Qualifiers: Encounter type: initial encounter Qualified Code(s): T17.800A - Unspecified foreign body in other parts of respiratory tract causing asphyxiation, initial encounter Is this a current diagnosis for this admission?: Yes Plan: Improved (3) Bilateral lower leg cellulitis Is this a current diagnosis for this admission?: Yes Plan: Improved (4) CKD (chronic kidney disease) Qualifiers: Chronic kidney disease stage: stage 3 (moderate) Qualified Code(s): N18.3 - Chronic kidney disease, stage 3 (moderate) Is this a current diagnosis for this admission?: Yes Plan: GFR unchanged at 34. Plan Summary: He has both MRSA and enterobacter in sputum. On correct antibiotics. Given level of delirium I believe he still needs an ICU placement for safety. Critical Time Critical Time (minutes): 35 Level of Care: ICU Anticipated discharge: Home Anticipated DC Timeframe: Other -: 1. The care of a critical patient is a dynamic process. This note is a sales representative metals synopsis but static in nature. The timeframe for treatments given in order is not necessarily the actual time these treatments may have been done. 2. This patient requires critical care secondary to ongoing requirements for therapy not offered or safe outside the critical care environment. Transfer to a lower level of care will result in altered life or limb morbidity and mortality. 3. Multidisciplinary rounds completed. 4. ABCDE bundle addressed.
[2019-11-13] MEDS: FLUTICASONE NASAL SPRAY 50 MCG/SPRY 120 SPRAY/16 GM NASL SCH (09:10)
[2019-11-13] MEDS: DEXTROSE 5%-1/2 NORMAL SALINE 1,000 ML IV PRN ×2 (09:34→23:54)
[2019-11-13] MEDS: HYDROCORTISONE SOD SUCCINATE INJ/PF 100 MG/2 ML SDV IV SCH (09:34)
[2019-11-13] MEDS: LINEZOLID 600 MG/300 ML RTUPB IV SCH ×2 (10:42→21:21)
[2019-11-13] MEDS: HEPARIN SOD (PORCINE) 5,000 UNIT/ML 1 ML VIAL SUBCUT SCH (16:50)
[2019-11-13] MEDS: MORPHINE SULFATE 10 MG/ML INJ IV PRN (21:22)
[2019-11-13] MEDS: FAMOTIDINE 20 MG TABLET NG SCH (21:22)
[2019-11-13] MEDS: ATORVASTATIN CALCIUM 40 MG TABLET NG SCH (21:22)
[2019-11-14] MEDS ORDERED: BISACODYL 10 MG SUPP.RECT PR ONE (01:24)
[2019-11-14] MEDS: GABAPENTIN 100 MG CAPSULE NG SCH ×2 (01:30→09:41)
[2019-11-14] MEDS: MORPHINE SULFATE 10 MG/ML INJ IV PRN ×3 (02:07→19:33)
[2019-11-14] MEDS: IPRATROPIUM/ALBUTEROL 0.5-2.5 MG/3 ML AMPUL NEB SCH ×4 (02:20→20:24)
[2019-11-14] MEDS: DEXMEDETOMIDINE IN NS 400 MCG/100 ML RTUPB IV PRN ×6 (04:00→20:20)
[2019-11-14 04:44] LABS: HEMATOCRIT 39.6 % (37.9-51.0); HEMOGLOBIN 12.8 g/dL (13.5-17.0); MEAN CORPUSCULAR HEMOGLOBIN 29.6 pg (27.0-33.4); MEAN CORPUSCULAR HGB CONC 32.2 g/dL (32.0-36.0); MEAN CORPUSCULAR VOLUME 92 fl (80-97); PLATELET COUNT 175 10^3/uL (150-450); RED BLOOD COUNT 4.31 10^6/uL (4.35-5.55); RED CELL DISTRIBUTION WIDTH 13.6 % (11.5-14.0); WHITE BLOOD COUNT 14.9 10^3/uL (4.0-10.5)
[2019-11-14 05:08] LABS: ANION GAP 5 (5-19); BLOOD UREA NITROGEN 49 mg/dL (7-20); CALCIUM 7.8 mg/dL (8.4-10.2); CARBON DIOXIDE 33 mmol/L (22-30); CHLORIDE 101 mmol/L (98-107); GLUCOSE 261 mg/dL (75-110); POTASSIUM 3.3 mmol/L (3.6-5.0)
[2019-11-14] MEDS: CLOTRIMAZOLE 1% CREAM 15 GM TP SCH ×3 (06:53→22:50)
[2019-11-14] MEDS: INSULIN LISPRO 100 UNIT/ML 3 ML VIAL SUBCUT SCH ×3 (06:53→17:53)
[2019-11-14] MEDS: HEPARIN SOD (PORCINE) 5,000 UNIT/ML 1 ML VIAL SUBCUT SCH ×2 (06:54→17:53)
[2019-11-14] MEDS: CEFEPIME 1 GM/D5W RTU 1 GM/50 ML RTUPB IV SCH ×2 (06:54→17:52)
[2019-11-14] MEDS: LINEZOLID 600 MG/300 ML RTUPB IV SCH ×2 (09:56→22:15)
[2019-11-14] MEDS: FLUTICASONE NASAL SPRAY 50 MCG/SPRY 120 SPRAY/16 GM NASL SCH (09:57)
[2019-11-14] MEDS ORDERED: HYDROCORTISONE SOD SUCCINATE INJ/PF 100 MG/2 ML SDV IV SCH (10:00)
--- NOTE | 2019-11-14 12:29 | PDOC CRITICAL CARE PROG REPORT ---
General Date:: 11/14/19 ICU Day:: 6 Hospital Day:: 6 Resuscitation Status: Full Code Medical Power of Interior Design Instructor: Events in the past 12 to 24 Hours:: More oriented Review of systems relevant to events:: Neurological. Endocrine. Reason for ICU Addmission:: Delirium better, weaning precedex. - Medications: Medications reviewed and adjusted accordingly: Yes Vasopressors:: None Sedation:: Precedex Physical Exam Vital Signs: Temp Pulse Resp BP Pulse Ox 97.3 F 50 L 15 140/68 H 99 11/14/19 10:00 11/14/19 10:00 11/14/19 10:08 11/14/19 10:08 11/14/19 10:08 Intake & Output 11/13/19 11/14/19 11/15/19 06:59 06:59 06:59 Intake Total 2240 2228 199 Output Total 2785 3270 75 Balance -545 -1042 124 Weight 93.9 kg 92.8 kg Weight/Height Weight 92.8 kg Height 5 ft 11 in General appearance: PRESENT: no acute distress, disheveled Head exam: PRESENT: atraumatic, normocephalic Eye exam: PRESENT: conjunctiva pink, EOMI, PERRLA. ABSENT: scleral icterus Ear exam: PRESENT: normal external ear exam Mouth exam: PRESENT: moist, tongue midline Respiratory exam: PRESENT: clear to auscultation reese. ABSENT: rales, rhonchi, wheezes Cardiovascular exam: PRESENT: bradycardia GI/Abdominal exam: PRESENT: normal bowel sounds, soft. ABSENT: distended, guarding, mass, organolmegaly, rebound, tenderness Rectal exam: PRESENT: deferred Gentrourinary exam: PRESENT: indwelling catheter Extremities exam: PRESENT: full ROM. ABSENT: calf tenderness, clubbing, pedal edema Musculoskeletal exam: PRESENT: normal inspection Neurological exam: PRESENT: alert, altered, awake, CN II-XII grossly intact Skin exam: PRESENT: dry, intact, warm. ABSENT: cyanosis, rash Laboratory/Radiographs Laboratory Results: 11/14/19 04:13 11/14/19 04:13 11/14/19 11/14/19 04:13 04:13 WBC 14.9 H RBC 4.31 L Hgb 12.8 L Hct 39.6 MCV 92 MCH 29.6 MCHC 32.2 RDW 13.6 Plt Count 175 Sodium 138.8 Potassium 3.3 L Chloride 101 Carbon Dioxide 33 H Anion Gap 5 BUN 49 H Creatinine 1.90 H Est GFR ( Amer) 42 L Glucose 261 H Calcium 7.8 L 11/08/19 17:30 Tracheal Aspirate Gram Stain - Final 11/08/19 17:30 Tracheal Aspirate Sputum Culture - Final Enterobacter Cloacae Mrsa (Meth Resis Staph Aureus) Normal Maryann 11/08/19 11/08/19 15:23 15:23 Creatine Kinase 200 H Troponin I 0.093 Impressions: Head CT 11/08/19 12:29 IMPRESSION: CHRONIC CHANGES OF ATROPHY AND MICROVASCULAR ISCHEMIA. NO ACUTE PROCESS. EVIDENCE OF ACUTE STROKE: NO. KUB X-Ray 11/11/19 17:50 IMPRESSION: TIP OF THE NASOGASTRIC TUBE IN THE STOMACH. Chest X-Ray 11/12/19 06:00 IMPRESSION: NO SIGNIFICANT CHANGE IN APPEARANCE OF THE CHEST. All labs, radiographs, diagnostic studies and EKGs were personally reviewed: Yes In addition, reports of radiographic and diagnostic studies were read: Yes Assessment and Plan - Diagnosis (1) Delirium due to another medical condition, acute, hyperactive Is this a current diagnosis for this admission?: Yes Plan: Improving. I do wonder if there is an underlying neurological illness such as dementia perpetuating this. We are weaning precedex and when off will downgrade. (2) Aspiration into lower respiratory tract Qualifiers: Encounter type: initial encounter Qualified Code(s): T17.800A - Unspecified foreign body in other parts of respiratory tract causing asphyxiation, initial encounter Is this a current diagnosis for this admission?: Yes Plan: Seems to have resolved (3) Bilateral lower leg cellulitis Is this a current diagnosis for this admission?: Yes Plan: Resolved (4) CKD (chronic kidney disease) Qualifiers: Chronic kidney disease stage: stage 3 (moderate) Qualified Code(s): N18.3 - Chronic kidney disease, stage 3 (moderate) Is this a current diagnosis for this admission?: Yes Plan: Still stage 3. Slightly improved. Plan Summary: Better control of delirium. When off precedex transfer. Critical Time Critical Time (minutes): 35 Level of Care: ICU Anticipated discharge: Home with Homehealth Anticipated DC Timeframe: Other -: 1. The care of a critical patient is a dynamic process. This note is a real estate representative synopsis but static in nature. The timeframe for treatments given in order is not necessarily the actual time these treatments may have been done. 2. This patient requires critical care secondary to ongoing requirements for therapy not offered or safe outside the critical care environment. Transfer to a lower level of care will result in altered life or limb morbidity and mortality. 3. Multidisciplinary rounds completed. 4. ABCDE bundle addressed.
[2019-11-14] MEDS: DEXTROSE 5%-1/2 NORMAL SALINE 1,000 ML IV PRN (14:15)
[2019-11-14] MEDS: IPRATROPIUM/ALBUTEROL 0.5-2.5 MG/3 ML AMPUL NEB PRN (16:16)
[2019-11-14] MEDS: GABAPENTIN 400 MG CAPSULE NG SCH (17:53)
--- NOTE | 2019-11-14 17:55 | RADIOLOGY REPORT (SQ) ---
EXAM DESCRIPTION: KUB/ABDOMEN (SINGLE VIEW) IMAGES COMPLETED DATE/TIME: 11/14/2019 5:47 pm REASON FOR STUDY: NGT placement COMPARISON: None. NUMBER OF VIEWS: One view. TECHNIQUE: Supine radiographic image of the abdomen acquired. LIMITATIONS: None. FINDINGS: BOWEL GAS PATTERN: Normal bowel gas pattern. No dilated loops. CALCIFICATIONS: No suspicious calcifications. SOFT TISSUES: No gross mass or suggestion of organomegaly. HARDWARE: The NG tube is about 10 cm inside the stomach. BONES: No acute fracture. No worrisome bone lesions. OTHER: No other significant finding. IMPRESSION: The NG tube is about 10 cm inside the stomach. TECHNICAL DOCUMENTATION: JOB ID: [id number] 2010 [employer]- All Rights Reserved Reading location - IP/workstation name: [email or web address]
[2019-11-14] MEDS: FAMOTIDINE INJ/PF 20 MG/2 ML SDV IV SCH (22:51)
[2019-11-14] MEDS: ATORVASTATIN CALCIUM 40 MG TABLET NG SCH (22:51)
[2019-11-15] MEDS: DEXMEDETOMIDINE IN NS 400 MCG/100 ML RTUPB IV PRN ×3 (00:45→09:35)
[2019-11-15] MEDS: INSULIN LISPRO 100 UNIT/ML 3 ML VIAL SUBCUT SCH ×5 (01:00→23:56)
[2019-11-15] MEDS: MORPHINE SULFATE 10 MG/ML INJ IV PRN (01:01)
[2019-11-15] MEDS: IPRATROPIUM/ALBUTEROL 0.5-2.5 MG/3 ML AMPUL NEB SCH ×4 (02:32→20:53)
[2019-11-15] MEDS: DEXTROSE 5%-1/2 NORMAL SALINE 1,000 ML IV PRN ×2 (03:45→21:07)
[2019-11-15] MEDS ORDERED: LORAZEPAM INJ 2 MG/1 ML VIAL IV ONE (04:02)
[2019-11-15] MEDS ORDERED: LORAZEPAM INJ 2 MG/1 ML VIAL ONE (04:03)
[2019-11-15] MEDS ORDERED: BISACODYL 10 MG SUPP.RECT PR ONE (05:29)
[2019-11-15] MEDS: CEFEPIME 1 GM/D5W RTU 1 GM/50 ML RTUPB IV SCH ×2 (05:35→17:11)
[2019-11-15] MEDS: CLOTRIMAZOLE 1% CREAM 15 GM TP SCH ×2 (05:40→14:43)
[2019-11-15] MEDS: HEPARIN SOD (PORCINE) 5,000 UNIT/ML 1 ML VIAL SUBCUT SCH ×2 (05:40→17:11)
[2019-11-15] MEDS: GABAPENTIN 400 MG CAPSULE NG SCH ×3 (05:41→21:15)
[2019-11-15 07:06] LABS: HEMATOCRIT 37.9 % (37.9-51.0); HEMOGLOBIN 12.5 g/dL (13.5-17.0); MEAN CORPUSCULAR VOLUME 91 fl (80-97); PLATELET COUNT 164 10^3/uL (150-450); RED BLOOD COUNT 4.17 10^6/uL (4.35-5.55); WHITE BLOOD COUNT 13.6 10^3/uL (4.0-10.5)
[2019-11-15 07:28] LABS: ANION GAP 5 (5-19); BLOOD UREA NITROGEN 43 mg/dL (7-20); CALCIUM 7.7 mg/dL (8.4-10.2); CARBON DIOXIDE 32 mmol/L (22-30); CHLORIDE 101 mmol/L (98-107); GLUCOSE 260 mg/dL (75-110)
[2019-11-15 07:34] LABS: POTASSIUM 2.9 mmol/L (3.6-5.0)
[2019-11-15] MEDS: POTASSIUM CHLORIDE 20 MEQ PACKET PO SCH ×2 (09:07→17:12)
[2019-11-15] MEDS: LINEZOLID 600 MG/300 ML RTUPB IV SCH ×2 (09:07→22:35)
[2019-11-15] MEDS: FLUTICASONE NASAL SPRAY 50 MCG/SPRY 120 SPRAY/16 GM NASL SCH (09:08)
[2019-11-15] MEDS ORDERED: POLYETHYLENE GLYCOL 3350 POWDER 17 GM/1 PACKET PO ONE (09:17)
--- NOTE | 2019-11-15 09:32 | PDOC CRITICAL CARE PROG REPORT ---
General Date:: 11/15/19 ICU Day:: 7 Hospital Day:: 7 Resuscitation Status: Full Code Medical Power of Autopsy Pathologist: Events in the past 12 to 24 Hours:: Despite neurontin restart, he is still encephalopatic. Review of systems relevant to events:: Neurologic. Reason for ICU Addmission:: Delirium better, weaning precedex. - Medications: Medications reviewed and adjusted accordingly: Yes Vasopressors:: None Sedation:: Precedex Physical Exam Vital Signs: Temp Pulse Resp BP Pulse Ox 95.7 F L 68 14 148/62 H 99 11/15/19 08:00 11/15/19 08:17 11/15/19 08:17 11/15/19 08:00 11/15/19 08:17 Intake & Output 11/14/19 11/15/19 11/16/19 06:59 06:59 06:59 Intake Total 2228 3332 12 Output Total 3270 2025 225 Balance -1042 1307 -213 Weight 92.8 kg 94.5 kg Weight/Height Weight 94.5 kg Height 5 ft 11 in General appearance: PRESENT: no acute distress, disheveled Head exam: PRESENT: atraumatic, normocephalic Eye exam: PRESENT: conjunctiva pink, EOMI, PERRLA. ABSENT: scleral icterus Ear exam: PRESENT: normal external ear exam Mouth exam: PRESENT: moist, tongue midline Respiratory exam: PRESENT: clear to auscultation reese, rhonchi. ABSENT: rales, wheezes Cardiovascular exam: PRESENT: RRR. ABSENT: diastolic murmur, rubs, systolic murmur GI/Abdominal exam: PRESENT: distended, normal bowel sounds, soft. ABSENT: guarding, mass, organolmegaly, rebound, tenderness Rectal exam: PRESENT: deferred Gentrourinary exam: PRESENT: indwelling catheter Extremities exam: PRESENT: full ROM. ABSENT: calf tenderness, clubbing, pedal edema Neurological exam: PRESENT: altered, awake, CN II-XII grossly intact Psychiatric exam: PRESENT: agitated Skin exam: PRESENT: dry, intact, warm. ABSENT: cyanosis, rash Tubes/Lines: PRESENT: Nasogastic Tube Laboratory/Radiographs Laboratory Results: 11/15/19 05:58 11/15/19 05:58 11/15/19 11/15/19 05:58 05:58 WBC 13.6 H RBC 4.17 L Hgb 12.5 L Hct 37.9 MCV 91 MCH 30.0 MCHC 33.0 RDW 14.0 Plt Count 164 Sodium 137.5 Potassium 2.9 L* Chloride 101 Carbon Dioxide 32 H Anion Gap 5 BUN 43 H Creatinine 1.83 H Est GFR ( Amer) 44 L Glucose 260 H Calcium 7.7 L 11/08/19 11/08/19 15:23 15:23 Creatine Kinase 200 H Troponin I 0.093 Impressions: Head CT 11/08/19 12:29 IMPRESSION: CHRONIC CHANGES OF ATROPHY AND MICROVASCULAR ISCHEMIA. NO ACUTE PROCESS. EVIDENCE OF ACUTE STROKE: NO. Chest X-Ray 11/12/19 06:00 IMPRESSION: NO SIGNIFICANT CHANGE IN APPEARANCE OF THE CHEST. KUB X-Ray 11/14/19 00:00 IMPRESSION: The NG tube is about 10 cm inside the stomach. All labs, radiographs, diagnostic studies and EKGs were personally reviewed: Yes In addition, reports of radiographic and diagnostic studies were read: Yes Assessment and Plan - Diagnosis (1) Delirium due to another medical condition, acute, hyperactive Is this a current diagnosis for this admission?: Yes Plan: He has had several reasons for this. 1. hypoglycemia, resolved. 2. Neurontin withdrawal. 3. Pain from neuropathy. 4 Immobility. (2) Aspiration into lower respiratory tract Qualifiers: Encounter type: initial encounter Qualified Code(s): T17.800A - Unspecified foreign body in other parts of respiratory tract causing asphyxiation, initial encounter Is this a current diagnosis for this admission?: Yes Plan: Seems to be resolving (3) Bilateral lower leg cellulitis Is this a current diagnosis for this admission?: Yes Plan: Resolved (4) CKD (chronic kidney disease) Qualifiers: Chronic kidney disease stage: stage 3 (moderate) Qualified Code(s): N18.3 - Chronic kidney disease, stage 3 (moderate) Is this a current diagnosis for this admission?: Yes Plan: GFR 44 a bit better. (5) Hypokalemia Is this a current diagnosis for this admission?: Yes Plan: Level of 2.9. being replaced with PO. Magnesium ordered as well. (6) Constipation Qualifiers: Constipation type: unspecified constipation type Qualified Code(s): K59.00 - Constipation, unspecified Is this a current diagnosis for this admission?: Yes Plan: No BM recorded in days. No results from 2 suppositories. Try enema and Miralax. Plan Summary: Tube feeds restarted. Ativan ordered PRN but be careful it does not worsen delirium. Critical Time Critical Time (minutes): 35 Level of Care: ICU Anticipated discharge: Home with Homehealth Anticipated DC Timeframe: Other -: 1. The care of a critical patient is a dynamic process. This note is a inventory representative synopsis but static in nature. The timeframe for treatments given in order is not necessarily the actual time these treatments may have been done. 2. This patient requires critical care secondary to ongoing requirements for therapy not offered or safe outside the critical care environment. Transfer to a lower level of care will result in altered life or limb morbidity and mortality. 3. Multidisciplinary rounds completed. 4. ABCDE bundle addressed.
[2019-11-15] MEDS: LORAZEPAM 1 MG TABLET PO PRN ×3 (09:35→22:21)
--- NOTE | 2019-11-15 16:21 | RADIOLOGY REPORT (SQ) ---
EXAM DESCRIPTION: KUB/ABDOMEN (SINGLE VIEW) IMAGES COMPLETED DATE/TIME: 11/15/2019 4:01 pm REASON FOR STUDY: Follow up for distended stomach on KUB 11/13 COMPARISON: 11/14/2019. NUMBER OF VIEWS: One view. TECHNIQUE: Supine radiographic image of the abdomen acquired. LIMITATIONS: None. FINDINGS: Moderate fecal retention. Unchanged satisfactory position of nasogastric tube. IMPRESSION: Moderate fecal retention. No significant change. TECHNICAL DOCUMENTATION: JOB ID: [id number] 2010 [employer]- All Rights Reserved Reading location - IP/workstation name: [email or web address]
[2019-11-15] MEDS: FAMOTIDINE INJ/PF 20 MG/2 ML SDV IV SCH (21:13)
[2019-11-15] MEDS: ATORVASTATIN CALCIUM 40 MG TABLET NG SCH (21:15)
[2019-11-15] MEDS ORDERED: NA PHOS,M-B/NA PHOS,DI-BA (ADULT) 133 ML ENEMA PR ONE (22:04)
[2019-11-16] MEDS ORDERED: NA PHOS,M-B/NA PHOS,DI-BA (ADULT) 133 ML ENEMA PR ONE ×3 (00:01→00:37)
[2019-11-16] MEDS: IPRATROPIUM/ALBUTEROL 0.5-2.5 MG/3 ML AMPUL NEB SCH ×4 (01:45→20:28)
[2019-11-16] MEDS ORDERED: POLYETHYLENE GLYCOL 3350 POWDER 17 GM/1 PACKET PO ONE (02:26)
[2019-11-16] MEDS ORDERED: LORAZEPAM INJ 2 MG/1 ML VIAL IV ONE (02:41)
[2019-11-16] MEDS ORDERED: LORAZEPAM INJ 2 MG/1 ML VIAL ONE (02:42)
[2019-11-16] MEDS: INSULIN LISPRO 100 UNIT/ML 3 ML VIAL SUBCUT SCH ×4 (06:09→23:27)
[2019-11-16] MEDS: HEPARIN SOD (PORCINE) 5,000 UNIT/ML 1 ML VIAL SUBCUT SCH (06:17)
[2019-11-16] MEDS: GABAPENTIN 400 MG CAPSULE NG SCH ×3 (06:17→15:05)
[2019-11-16 07:17] LABS: HEMATOCRIT 38.9 % (37.9-51.0); HEMOGLOBIN 12.5 g/dL (13.5-17.0); MEAN CORPUSCULAR HEMOGLOBIN 29.5 pg (27.0-33.4); MEAN CORPUSCULAR HGB CONC 32.2 g/dL (32.0-36.0); MEAN CORPUSCULAR VOLUME 92 fl (80-97); PLATELET COUNT 191 10^3/uL (150-450); RED BLOOD COUNT 4.24 10^6/uL (4.35-5.55); RED CELL DISTRIBUTION WIDTH 13.6 % (11.5-14.0); WHITE BLOOD COUNT 20.6 10^3/uL (4.0-10.5)
[2019-11-16 07:30] LABS: BLOOD UREA NITROGEN 40 mg/dL (7-20); CALCIUM 7.7 mg/dL (8.4-10.2); CARBON DIOXIDE 31 mmol/L (22-30); GLUCOSE 167 mg/dL (75-110); POTASSIUM 3.3 mmol/L (3.6-5.0)
[2019-11-16 07:36] LABS: ANION GAP 8 (5-19); CHLORIDE 98 mmol/L (98-107)
[2019-11-16] MEDS ORDERED: MAGNESIUM CITRATE 296 ML BOTTLE PO ONE (08:00)
--- NOTE | 2019-11-16 09:36 | PDOC CRITICAL CARE PROG REPORT ---
General Date:: 11/16/19 ICU Day:: 8 Hospital Day:: 8 Resuscitation Status: Full Code Medical Power of Volumetric Weigher: Events in the past 12 to 24 Hours:: Still delirious, slightly improved. Still constipated. Review of systems relevant to events:: Neurological, GI Reason for ICU Addmission:: Delirium better, weaning precedex. - Medications: Medications reviewed and adjusted accordingly: Yes Vasopressors:: None Sedation:: Precedex. Physical Exam Vital Signs: Temp Pulse Resp BP Pulse Ox 99.0 F 109 H 12 138/86 H 93 11/16/19 08:00 11/16/19 08:06 11/16/19 08:06 11/16/19 08:00 11/16/19 08:06 Intake & Output 11/15/19 11/16/19 11/17/19 06:59 06:59 06:59 Intake Total 3382 1393 Output Total 2024 1250 50 Balance 1357 143 -50 Weight 94.5 kg 102.9 kg Weight/Height Weight 102.9 kg Height 5 ft 11 in General appearance: PRESENT: no acute distress, disheveled Head exam: PRESENT: atraumatic, normocephalic Eye exam: PRESENT: conjunctiva pink, EOMI, PERRLA. ABSENT: scleral icterus Ear exam: PRESENT: normal external ear exam Mouth exam: PRESENT: moist, tongue midline Teeth exam: ABSENT: dental caries, dental tenderness, edentulous, poor dentation, other Respiratory exam: PRESENT: clear to auscultation reese, decreased breath sounds, rhonchi. ABSENT: rales, wheezes Cardiovascular exam: PRESENT: irregular rhythm, tachycardia. ABSENT: diastolic murmur, rubs, systolic murmur GI/Abdominal exam: PRESENT: distended, soft Rectal exam: PRESENT: normal inspection Extremities exam: PRESENT: full ROM. ABSENT: calf tenderness, clubbing, pedal edema Neurological exam: PRESENT: alert, altered, awake, oriented to person, CN II-XII grossly intact Psychiatric exam: PRESENT: agitated - At times Skin exam: PRESENT: dry, intact, warm. ABSENT: cyanosis, rash Tubes/Lines: PRESENT: Nasogastic Tube Laboratory/Radiographs Laboratory Results: 11/16/19 06:55 11/16/19 06:55 11/16/19 11/16/19 06:55 06:55 WBC 20.6 H RBC 4.24 L Hgb 12.5 L Hct 38.9 MCV 92 MCH 29.5 MCHC 32.2 RDW 13.6 Plt Count 191 Sodium 136.7 L Potassium 3.3 L Chloride 98 Carbon Dioxide 31 H Anion Gap 8 BUN 40 H Creatinine 2.18 H Est GFR ( Amer) 36 L Glucose 167 H Calcium 7.7 L 11/11/19 06:39 Blood Blood Culture - Final NO GROWTH IN 5 DAYS 11/11/19 04:03 Blood Blood Culture - Final NO GROWTH IN 5 DAYS 11/08/19 11/08/19 15:23 15:23 Creatine Kinase 200 H Troponin I 0.093 Impressions: Head CT 11/08/19 12:29 IMPRESSION: CHRONIC CHANGES OF ATROPHY AND MICROVASCULAR ISCHEMIA. NO ACUTE PROCESS. EVIDENCE OF ACUTE STROKE: NO. Chest X-Ray 11/12/19 06:00 IMPRESSION: NO SIGNIFICANT CHANGE IN APPEARANCE OF THE CHEST. KUB X-Ray 11/15/19 00:00 IMPRESSION: Moderate fecal retention. No significant change. All labs, radiographs, diagnostic studies and EKGs were personally reviewed: Yes In addition, reports of radiographic and diagnostic studies were read: Yes Assessment and Plan - Diagnosis (1) Delirium due to another medical condition, acute, hyperactive Is this a current diagnosis for this admission?: Yes Plan: This is likely multifactorial. Gabapentin WD, immobility, disturbed sleep/wake cycles. He should be out of the ICU but with this degree of delirium he may be too much to observe and care for. (2) Aspiration into lower respiratory tract Qualifiers: Encounter type: initial encounter Qualified Code(s): T17.800A - Unspecified foreign body in other parts of respiratory tract causing asphyxiation, initial encounter Is this a current diagnosis for this admission?: Yes Plan: Resolved. Patient vomited today but has most likely not aspirated. No clinical signs of aspiration. (3) CKD (chronic kidney disease) Qualifiers: Chronic kidney disease stage: stage 3 (moderate) Qualified Code(s): N18.3 - Chronic kidney disease, stage 3 (moderate) Is this a current diagnosis for this admission?: Yes Plan: Slightly higher probably indicative of dehydrated state. Increase IVF. (4) Hypokalemia Is this a current diagnosis for this admission?: Yes Plan: Improved to a level of 3.3. Second day of PO replacement (5) Constipation Qualifiers: Constipation type: unspecified constipation type Qualified Code(s): K59.00 - Constipation, unspecified Is this a current diagnosis for this admission?: Yes Plan: No results from soap suds, fleets X2, Miralax. Will no try Mg citrate and molasses enema. (6) Leukocytosis Qualifiers: Leukocytosis type: leukemoid reaction Qualified Code(s): D72.823 - Leukemoid reaction Is this a current diagnosis for this admission?: Yes Plan: His WBC has gone from 13-20K. This may be constipation. The lab draw was before vomiting. Plan Summary: He needs to move bowels, hold TF in view of vomiting. Continu gabapentin. Critical Time Critical Time (minutes): 40 Level of Care: ICU Anticipated discharge: SNF Anticipated DC Timeframe: Other -: 1. The care of a critical patient is a dynamic process. This note is a life assurance representative synopsis but static in nature. The timeframe for treatments given in order is not necessarily the actual time these treatments may have been done. 2. This patient requires critical care secondary to ongoing requirements for therapy not offered or safe outside the critical care environment. Transfer to a lower level of care will result in altered life or limb morbidity and mortality. 3. Multidisciplinary rounds completed. 4. ABCDE bundle addressed.
[2019-11-16] MEDS: RIVAROXABAN 10 MG TABLET NG SCH (10:10)
[2019-11-16] MEDS: METOPROLOL TARTRATE 25 MG TABLET PO SCH ×2 (10:10→21:41)
[2019-11-16] MEDS: ASPIRIN 81 MG TABLET, CHEWABLE NG SCH (10:10)
[2019-11-16] MEDS: LINEZOLID 600 MG/300 ML RTUPB IV SCH (10:11)
[2019-11-16] MEDS: FLUTICASONE NASAL SPRAY 50 MCG/SPRY 120 SPRAY/16 GM NASL SCH (10:11)
[2019-11-16] MEDS: POTASSIUM CHLORIDE 20 MEQ PACKET PO SCH ×2 (10:11→17:17)
[2019-11-16] MEDS: DEXTROSE 5%-1/2 NORMAL SALINE 1,000 ML IV PRN (15:05)
[2019-11-16] MEDS ORDERED: ONDANSETRON HCL INJ/PF 4 MG/2 ML SDV IV PRN (18:08)
[2019-11-16] MEDS: RINGERS SOLUTION,LACTATED 1,000 ML IV PRN (18:34)
[2019-11-16] MEDS ORDERED: GABAPENTIN 400 MG CAPSULE NG SCH (21:30)
[2019-11-16] MEDS: GABAPENTIN 300 MG CAPSULE NG SCH ×2 (21:35→21:41)
[2019-11-16] MEDS: FAMOTIDINE INJ/PF 20 MG/2 ML SDV IV SCH (21:41)
[2019-11-16] MEDS: ATORVASTATIN CALCIUM 40 MG TABLET NG SCH (21:41)
[2019-11-16] MEDS: LINEZOLID 600 MG TABLET PO SCH (22:26)
[2019-11-17] MEDS: GABAPENTIN 300 MG CAPSULE NG SCH ×3 (02:32→15:55)
[2019-11-17] MEDS: IPRATROPIUM/ALBUTEROL 0.5-2.5 MG/3 ML AMPUL NEB SCH ×4 (02:36→20:44)
[2019-11-17 04:11] LABS: HEMATOCRIT 36.5 % (37.9-51.0); HEMOGLOBIN 11.9 g/dL (13.5-17.0); MEAN CORPUSCULAR HEMOGLOBIN 30.2 pg (27.0-33.4); MEAN CORPUSCULAR HGB CONC 32.7 g/dL (32.0-36.0); MEAN CORPUSCULAR VOLUME 92 fl (80-97); PLATELET COUNT 181 10^3/uL (150-450); RED BLOOD COUNT 3.95 10^6/uL (4.35-5.55); RED CELL DISTRIBUTION WIDTH 13.7 % (11.5-14.0)
[2019-11-17 04:29] LABS: BLOOD UREA NITROGEN 40 mg/dL (7-20); CALCIUM 7.9 mg/dL (8.4-10.2); CHLORIDE 101 mmol/L (98-107); GLUCOSE 142 mg/dL (75-110)
[2019-11-17] MEDS: RINGERS SOLUTION,LACTATED 1,000 ML IV PRN (04:32)
[2019-11-17 04:35] LABS: CARBON DIOXIDE 31 mmol/L (22-30)
[2019-11-17 04:37] LABS: ANION GAP 4 (5-19); POTASSIUM 4.4 mmol/L (3.6-5.0)
[2019-11-17] MEDS: INSULIN LISPRO 100 UNIT/ML 3 ML VIAL SUBCUT SCH ×3 (05:05→19:47)
--- NOTE | 2019-11-17 08:01 | RADIOLOGY REPORT (SQ) ---
EXAM DESCRIPTION: KUB/ABDOMEN (SINGLE VIEW) IMAGES COMPLETED DATE/TIME: 11/17/2019 7:46 am REASON FOR STUDY: ng tube placement COMPARISON: 11/15/2019 and 11/14/2019 NUMBER OF VIEWS: One view. TECHNIQUE: Supine radiographic image of the abdomen acquired. LIMITATIONS: Limited field of view and suboptimal patient positioning. FINDINGS: BOWEL GAS PATTERN: Stable bowel gas pattern as visualized. CALCIFICATIONS: No suspicious calcifications. SOFT TISSUES: No gross mass or suggestion of organomegaly. HARDWARE: Enteric tube terminates subdiaphragmatically with the proximal port in the region of the ga stroesophageal junction. BONES: No acute fracture. No worrisome bone lesions. OTHER: No other significant finding. IMPRESSION: Enteric tube proximal port projects at the level of the gastroesophageal junction; recom mend advancing 10 cm. TECHNICAL DOCUMENTATION: JOB ID: [id number] 2010 [employer]- All Rights Reserved Reading location - IP/workstation name: [email or web address]
--- NOTE | 2019-11-17 09:16 | PDOC CRITICAL CARE PROG REPORT ---
General Date:: 11/17/19 ICU Day:: 9 Hospital Day:: 9 Resuscitation Status: Full Code Medical Power of Corporate Coordinator: Events in the past 12 to 24 Hours:: More oriented, but pulled put NG. Review of systems relevant to events:: Neurologic Reason for ICU Addmission:: Off precedex getting ready for transfer. - Medications: Medications reviewed and adjusted accordingly: Yes Vasopressors:: None Sedation:: Precedex stopped. Physical Exam Vital Signs: Temp Pulse Resp BP Pulse Ox 99.1 F 99 16 195/93 H 93 11/17/19 08:30 11/17/19 08:38 11/17/19 08:38 11/17/19 07:10 11/17/19 08:38 Intake & Output 11/16/19 11/17/19 11/18/19 06:59 06:59 06:59 Intake Total 1693 2258 Output Total 1250 1885 150 Balance 443 373 -150 Weight 102.9 kg 102.8 kg Weight/Height Weight 102.8 kg Height 5 ft 11 in General appearance: PRESENT: no acute distress, disheveled, obese Head exam: PRESENT: atraumatic, normocephalic Eye exam: PRESENT: conjunctiva pink, EOMI, PERRLA. ABSENT: scleral icterus Ear exam: PRESENT: normal external ear exam Mouth exam: PRESENT: moist, tongue midline Respiratory exam: PRESENT: clear to auscultation reese. ABSENT: rales, rhonchi, wheezes Cardiovascular exam: PRESENT: RRR. ABSENT: diastolic murmur, rubs, systolic murmur GI/Abdominal exam: PRESENT: normal bowel sounds, soft. ABSENT: distended, guarding, mass, organolmegaly, rebound, tenderness Rectal exam: PRESENT: deferred Gentrourinary exam: PRESENT: indwelling catheter Extremities exam: PRESENT: full ROM. ABSENT: calf tenderness, clubbing, pedal edema Musculoskeletal exam: PRESENT: normal inspection Neurological exam: PRESENT: alert, altered, awake Skin exam: PRESENT: dry, intact, warm. ABSENT: cyanosis, rash Tubes/Lines: PRESENT: Nasogastic Tube Laboratory/Radiographs Laboratory Results: 11/17/19 03:59 11/17/19 03:59 11/17/19 11/17/19 03:59 03:59 WBC 16.0 H RBC 3.95 L Hgb 11.9 L Hct 36.5 L MCV 92 MCH 30.2 MCHC 32.7 RDW 13.7 Plt Count 181 Sodium 135.6 L Potassium 4.4 D Chloride 101 Carbon Dioxide 31 H Anion Gap 4 L BUN 40 H Creatinine 2.29 H Est GFR ( Amer) 34 L Glucose 142 H Calcium 7.9 L 11/11/19 06:39 Blood Blood Culture - Final NO GROWTH IN 5 DAYS 11/08/19 11/08/19 15:23 15:23 Creatine Kinase 200 H Troponin I 0.093 Impressions: Head CT 11/08/19 12:29 IMPRESSION: CHRONIC CHANGES OF ATROPHY AND MICROVASCULAR ISCHEMIA. NO ACUTE PROCESS. EVIDENCE OF ACUTE STROKE: NO. Chest X-Ray 11/12/19 06:00 IMPRESSION: NO SIGNIFICANT CHANGE IN APPEARANCE OF THE CHEST. KUB X-Ray 11/17/19 00:00 IMPRESSION: Enteric tube proximal port projects at the level of the gastroesophageal junction; recommend advancing 10 cm. All labs, radiographs, diagnostic studies and EKGs were personally reviewed: Yes In addition, reports of radiographic and diagnostic studies were read: Yes Assessment and Plan - Diagnosis (1) Delirium due to another medical condition, acute, hyperactive Is this a current diagnosis for this admission?: Yes Plan: This seems to be improving. He is not back to normal, but is asking more appropriate questions. (2) Aspiration into lower respiratory tract Qualifiers: Qualified Code(s): T17.800A - Unspecified foreign body in other parts of respiratory tract causing asphyxiation, initial encounter Is this a current diagnosis for this admission?: Yes Plan: Resolved. Yesterday's vomiting does not seem to have resulted in a recurrence of aspiration. (3) CKD (chronic kidney disease) Qualifiers: Qualified Code(s): N18.3 - Chronic kidney disease, stage 3 (moderate) Is this a current diagnosis for this admission?: Yes Plan: Stable CR and GFR. (4) Hypokalemia Is this a current diagnosis for this admission?: Yes Plan: Resolved (5) Constipation Qualifiers: Qualified Code(s): K59.00 - Constipation, unspecified Is this a current diagnosis for this admission?: Yes Plan: No BM but plenty of gas sounds (6) Leukocytosis Qualifiers: Qualified Code(s): D72.823 - Leukemoid reaction Is this a current diagnosis for this admission?: Yes Plan: Decreased to 16 with no new signs of infection. Plan Summary: NG replace, speech to re-evaluate. If his mental status continues to improve will downgrade, probably in AM Critical Time Critical Time (minutes): 35 Level of Care: ICU Anticipated discharge: SNF Anticipated DC Timeframe: Other -: 1. The care of a critical patient is a dynamic process. This note is a direct customer service representative synopsis but static in nature. The timeframe for treatments given in order is not necessarily the actual time these treatments may have been done. 2. This patient requires critical care secondary to ongoing requirements for therapy not offered or safe outside the critical care environment. Transfer to a lower level of care will result in altered life or limb morbidity and mortality. 3. Multidisciplinary rounds completed. 4. ABCDE bundle addressed.
[2019-11-17] MEDS: FLUTICASONE NASAL SPRAY 50 MCG/SPRY 120 SPRAY/16 GM NASL SCH (11:05)
[2019-11-17] MEDS: METOPROLOL TARTRATE 25 MG TABLET PO SCH ×2 (11:06→21:15)
[2019-11-17] MEDS: RIVAROXABAN 10 MG TABLET NG SCH (11:06)
[2019-11-17] MEDS: ASPIRIN 81 MG TABLET, CHEWABLE NG SCH (11:06)
[2019-11-17] MEDS: LINEZOLID 600 MG TABLET PO SCH ×2 (11:08→21:17)
[2019-11-17] MEDS: FAMOTIDINE 20 MG TABLET PO SCH ×2 (12:03→21:16)
[2019-11-17] MEDS: ATORVASTATIN CALCIUM 40 MG TABLET PO SCH (21:15)
[2019-11-17] MEDS: GABAPENTIN 300 MG CAPSULE PO SCH (21:16)
[2019-11-18] MEDS: INSULIN LISPRO 100 UNIT/ML 3 ML VIAL SUBCUT SCH ×5 (00:06→23:42)
[2019-11-18] MEDS: IPRATROPIUM/ALBUTEROL 0.5-2.5 MG/3 ML AMPUL NEB SCH ×4 (02:16→20:18)
[2019-11-18] MEDS: GABAPENTIN 300 MG CAPSULE PO SCH ×4 (02:58→22:15)
[2019-11-18 04:46] LABS: ANION GAP 9 (5-19); BLOOD UREA NITROGEN 47 mg/dL (7-20); CALCIUM 8.5 mg/dL (8.4-10.2); CARBON DIOXIDE 31 mmol/L (22-30); CHLORIDE 98 mmol/L (98-107); GLUCOSE 159 mg/dL (75-110); POTASSIUM 4.4 mmol/L (3.6-5.0)
[2019-11-18] MEDS ORDERED: RINGERS SOLUTION,LACTATED 1,000 ML IV PRN (08:47)
--- NOTE | 2019-11-18 09:11 | PDOC CRITICAL CARE PROG REPORT ---
General Date:: 11/18/19 Hospital Day:: 10 Resuscitation Status: Full Code Medical Power of Dietitian Consultant: Events in the past 12 to 24 Hours:: More oriented Review of systems relevant to events:: Neurological, renal Reason for ICU Addmission:: Off precedex getting ready for transfer. - Medications: Medications reviewed and adjusted accordingly: Yes Vasopressors:: None Sedation:: None Physical Exam Vital Signs: Temp Pulse Resp BP Pulse Ox 98.6 F 77 19 147/58 H 94 11/18/19 05:50 11/18/19 07:00 11/18/19 06:11 11/18/19 06:11 11/18/19 06:11 Intake & Output 11/17/19 11/18/19 11/19/19 06:59 06:59 06:59 Intake Total 2258 1000 Output Total 1885 1400 Balance 373 -400 Weight 102.8 kg 102.8 kg Weight/Height Weight 102.8 kg Height 5 ft 11 in General appearance: PRESENT: no acute distress, cooperative Head exam: PRESENT: atraumatic, normocephalic Eye exam: PRESENT: conjunctiva pink, EOMI, PERRLA. ABSENT: scleral icterus Ear exam: PRESENT: normal external ear exam Mouth exam: PRESENT: moist, tongue midline Respiratory exam: PRESENT: clear to auscultation reese. ABSENT: rales, rhonchi, wheezes Cardiovascular exam: PRESENT: RRR. ABSENT: diastolic murmur, rubs, systolic murmur GI/Abdominal exam: PRESENT: normal bowel sounds, soft. ABSENT: distended, guarding, mass, organolmegaly, rebound, tenderness Rectal exam: PRESENT: heme (+) stool Extremities exam: PRESENT: full ROM. ABSENT: calf tenderness, clubbing, pedal edema Neurological exam: PRESENT: alert, awake, oriented to person, oriented to place Psychiatric exam: PRESENT: appropriate affect, normal mood. ABSENT: homicidal ideation, suicidal ideation Skin exam: PRESENT: dry, intact, warm. ABSENT: cyanosis, rash Laboratory/Radiographs Laboratory Results: 11/17/19 03:59 11/18/19 03:54 11/18/19 03:54 Sodium 138.3 Potassium 4.4 Chloride 98 Carbon Dioxide 31 H Anion Gap 9 BUN 47 H Creatinine 2.48 H Est GFR ( Amer) 31 L Glucose 159 H Calcium 8.5 11/08/19 11/08/19 15:23 15:23 Creatine Kinase 200 H Troponin I 0.093 Impressions: Head CT 11/08/19 12:29 IMPRESSION: CHRONIC CHANGES OF ATROPHY AND MICROVASCULAR ISCHEMIA. NO ACUTE PROCESS. EVIDENCE OF ACUTE STROKE: NO. Chest X-Ray 11/12/19 06:00 IMPRESSION: NO SIGNIFICANT CHANGE IN APPEARANCE OF THE CHEST. KUB X-Ray 11/17/19 00:00 IMPRESSION: Enteric tube proximal port projects at the level of the gastroesophageal junction; recommend advancing 10 cm. All labs, radiographs, diagnostic studies and EKGs were personally reviewed: Yes In addition, reports of radiographic and diagnostic studies were read: Yes Assessment and Plan - Diagnosis (1) Delirium due to another medical condition, acute, hyperactive Is this a current diagnosis for this admission?: Yes Plan: Neurontin withdrawea syndrome. With the reistitution of neurontin he has become much more oriented. He is stable enough since yesterday to be downgraded. Awaiting bed. Home when more stable and stronger. (2) Aspiration into lower respiratory tract Qualifiers: Encounter type: initial encounter Qualified Code(s): T17.800A - Unspecified foreign body in other parts of respiratory tract causing asphyxiation, initial encounter Is this a current diagnosis for this admission?: Yes Plan: Resolved (3) CKD (chronic kidney disease) Qualifiers: Chronic kidney disease stage: stage 3 (moderate) Qualified Code(s): N18.3 - Chronic kidney disease, stage 3 (moderate) Is this a current diagnosis for this admission?: Yes Plan: His CR and GFR are more elevated and he is really not yet taking in much by mouth. Will restart IVF and recheck labs in the AM. (4) Hypokalemia Is this a current diagnosis for this admission?: Yes Plan: Resolved. (5) Constipation Qualifiers: Constipation type: unspecified constipation type Qualified Code(s): K59.00 - Constipation, unspecified Is this a current diagnosis for this admission?: Yes Plan: Still no significant BM but much abdominal rumbling. No symptoms. (6) Leukocytosis Qualifiers: Leukocytosis type: leukemoid reaction Qualified Code(s): D72.823 - Leukemoid reaction Is this a current diagnosis for this admission?: Yes Plan: WBC coming down with no treatment Plan Summary: Awaiting [facility] bed. Critical Time Critical Time (minutes): 25 Level of Care: IMCU Anticipated discharge: Home with Homehealth Anticipated DC Timeframe: Other -: 1. The care of a critical patient is a dynamic process. This note is a pharmacy sales representative synopsis but static in nature. The timeframe for treatments given in order is not necessarily the actual time these treatments may have been done. 2. This patient requires critical care secondary to ongoing requirements for therapy not offered or safe outside the critical care environment. Transfer to a lower level of care will result in altered life or limb morbidity and m ortality. 3. Multidisciplinary rounds completed. 4. ABCDE bundle addressed.
[2019-11-18] MEDS: FLUTICASONE NASAL SPRAY 50 MCG/SPRY 120 SPRAY/16 GM NASL SCH (10:08)
[2019-11-18] MEDS: METOPROLOL TARTRATE 25 MG TABLET PO SCH ×2 (10:09→22:15)
[2019-11-18] MEDS: LINEZOLID 600 MG TABLET PO SCH ×2 (10:09→22:15)
[2019-11-18] MEDS: ASPIRIN 81 MG TABLET, CHEWABLE PO SCH (10:09)
[2019-11-18] MEDS: RIVAROXABAN 10 MG TABLET PO SCH (10:10)
[2019-11-18] MEDS: ATORVASTATIN CALCIUM 40 MG TABLET PO SCH (22:15)
[2019-11-19] MEDS: IPRATROPIUM/ALBUTEROL 0.5-2.5 MG/3 ML AMPUL NEB SCH ×4 (02:26→20:14)
[2019-11-19] MEDS: GABAPENTIN 300 MG CAPSULE PO SCH ×3 (04:17→21:54)
[2019-11-19] MEDS: INSULIN LISPRO 100 UNIT/ML 3 ML VIAL SUBCUT SCH ×3 (06:08→18:33)
[2019-11-19] MEDS: RIVAROXABAN 10 MG TABLET PO SCH (09:15)
[2019-11-19] MEDS: FLUTICASONE NASAL SPRAY 50 MCG/SPRY 120 SPRAY/16 GM NASL SCH (09:16)
[2019-11-19] MEDS: ASPIRIN 81 MG TABLET, CHEWABLE PO SCH (09:16)
[2019-11-19] MEDS: LINEZOLID 600 MG TABLET PO SCH ×2 (09:16→21:56)
[2019-11-19] MEDS: METOPROLOL TARTRATE 25 MG TABLET PO SCH ×2 (09:16→21:54)
[2019-11-19 10:52] LABS: ABSOLUTE BASOPHILS # (AUTO) 0.1 10^3/uL (0.0-0.2); ABSOLUTE EOSINOPHILS # (AUTO) 0.7 10^3/uL (0.0-0.6); ABSOLUTE LYMPHOCYTES (AUTO) 1.3 10^3/uL (0.5-4.7); ABSOLUTE MONOCYTES (AUTO) 1.4 10^3/uL (0.1-1.4); BASOPHILS % (AUTO) 1.1 % (0-2); EOSINOPHILS % (AUTO) 5.1 % (0-6); HEMATOCRIT 37.1 % (37.9-51.0); HEMOGLOBIN 12.3 g/dL (13.5-17.0); LYMPHOCYTES % (AUTO) 9.3 % (13-45); MEAN CORPUSCULAR HEMOGLOBIN 30.3 pg (27.0-33.4); MEAN CORPUSCULAR HGB CONC 33.3 g/dL (32.0-36.0); MEAN CORPUSCULAR VOLUME 91 fl (80-97); MONOCYTES % (AUTO) 10.2 % (3-13); PLATELET COUNT 238 10^3/uL (150-450); RED BLOOD COUNT 4.07 10^6/uL (4.35-5.55); RED CELL DISTRIBUTION WIDTH 13.4 % (11.5-14.0); SEGMENTED NEUTROPHILS % (AUTO) 74.3 % (42-78); TOTAL CELLS COUNTED % (AUTO) 100 %; WHITE BLOOD COUNT 13.5 10^3/uL (4.0-10.5)
[2019-11-19 11:11] LABS: ANION GAP 6 (5-19); BLOOD UREA NITROGEN 41 mg/dL (7-20); CALCIUM 8.3 mg/dL (8.4-10.2); CARBON DIOXIDE 34 mmol/L (22-30); CHLORIDE 97 mmol/L (98-107); GLUCOSE 186 mg/dL (75-110)
--- NOTE | 2019-11-19 17:05 | RADIOLOGY REPORT (SQ) ---
EXAM DESCRIPTION: CHEST SINGLE VIEW IMAGES COMPLETED DATE/TIME: 11/19/2019 3:49 pm REASON FOR STUDY: hypoxia COMPARISON: 11/12/2019 EXAM PARAMETERS: NUMBER OF VIEWS: One view. TECHNIQUE: Single frontal radiographic view of the chest acquired. RADIATION DOSE: NA LIMITATIONS: None. FINDINGS: LUNGS AND PLEURA: Lungs are hyperinflated. Diffuse increased interstitial prominence is s table from previous. There is mild atelectasis/ consolidation at the lung bases. Probable small reese ateral pleural effusions. No pneumothorax. MEDIASTINUM AND HILAR STRUCTURES: No masses. Contour normal. HEART AND VASCULAR STRUCTURES: Moderate cardiomegaly. Mild indistinctness of the pulmonary vasculatu re. BONES: No acute findings. HARDWARE: None in the chest. OTHER: No other significant finding. IMPRESSION: 1. Developing mild pulmonary edema. 2. Small bilateral layering effusions with compressive atelectasis/consolidation in the lung bases. TECHNICAL DOCUMENTATION: JOB ID: [id number] 2010 [employer]- All Rights Reserved Reading location - IP/workstation name: [email or web address]
--- NOTE | 2019-11-19 17:06 | RADIOLOGY REPORT (SQ) ---
EXAM DESCRIPTION: KUB/ABDOMEN (SINGLE VIEW) IMAGES COMPLETED DATE/TIME: 11/19/2019 3:49 pm REASON FOR STUDY: obstipation COMPARISON: None. NUMBER OF VIEWS: One view. TECHNIQUE: Supine radiographic image of the abdomen acquired. LIMITATIONS: None. FINDINGS: BOWEL GAS PATTERN: Scattered non-dilated small bowel loops. No obstructive pattern. Moder ate stool throughout the colon. CALCIFICATIONS: No suspicious calcifications. SOFT TISSUES: No gross mass or suggestion of organomegaly. HARDWARE: Prostatic radiation seeds. BONES: No acute fracture. No worrisome bone lesions. OTHER: No other significant finding. IMPRESSION: Moderate stool throughout the colon. No evidence of bowel obstruction. TECHNICAL DOCUMENTATION: JOB ID: [id number] 2010 [employer]- All Rights Reserved Reading location - IP/workstation name: [email or web address]
[2019-11-19] MEDS ORDERED: MAGNESIUM CITRATE 296 ML BOTTLE PO ONE (17:30)
[2019-11-19] MEDS: PANTOPRAZOLE SODIUM 40 MG VIAL IV SCH (18:37)
[2019-11-19 19:45] LABS: ANION GAP 5 (5-19); BLOOD UREA NITROGEN 40 mg/dL (7-20); CALCIUM 8.2 mg/dL (8.4-10.2); CARBON DIOXIDE 35 mmol/L (22-30); CHLORIDE 97 mmol/L (98-107); GLUCOSE 204 mg/dL (75-110); POTASSIUM 3.9 mmol/L (3.6-5.0)
[2019-11-19] MEDS: BUDESONIDE NEB 0.25 MG/2 ML AMPUL NEB SCH (20:14)
[2019-11-19] MEDS: ATORVASTATIN CALCIUM 40 MG TABLET PO SCH (21:54)
[2019-11-20] MEDS: INSULIN LISPRO 100 UNIT/ML 3 ML VIAL SUBCUT SCH ×5 (00:06→21:39)
[2019-11-20] MEDS: IPRATROPIUM/ALBUTEROL 0.5-2.5 MG/3 ML AMPUL NEB SCH ×4 (01:08→19:50)
[2019-11-20 04:19] LABS: ABSOLUTE BASOPHILS # (AUTO) 0.2 10^3/uL (0.0-0.2); ABSOLUTE EOSINOPHILS # (AUTO) 0.4 10^3/uL (0.0-0.6); ABSOLUTE LYMPHOCYTES (AUTO) 1.3 10^3/uL (0.5-4.7); ABSOLUTE MONOCYTES (AUTO) 1.2 10^3/uL (0.1-1.4); ABSOLUTE NEUT (AUTO) 9.6 10^3/uL (1.7-8.2); BASOPHILS % (AUTO) 1.2 % (0-2); EOSINOPHILS % (AUTO) 3.1 % (0-6); HEMATOCRIT 34.8 % (37.9-51.0); HEMOGLOBIN 11.6 g/dL (13.5-17.0); LYMPHOCYTES % (AUTO) 10.2 % (13-45); MEAN CORPUSCULAR HEMOGLOBIN 30.1 pg (27.0-33.4); MEAN CORPUSCULAR HGB CONC 33.4 g/dL (32.0-36.0); MEAN CORPUSCULAR VOLUME 90 fl (80-97); MONOCYTES % (AUTO) 9.5 % (3-13); PLATELET COUNT 232 10^3/uL (150-450); RED BLOOD COUNT 3.86 10^6/uL (4.35-5.55); RED CELL DISTRIBUTION WIDTH 13.2 % (11.5-14.0); TOTAL CELLS COUNTED % (AUTO) 100 %; WHITE BLOOD COUNT 12.6 10^3/uL (4.0-10.5)
[2019-11-20 04:40] LABS: PHOSPHORUS 2.3 mg/dL (2.5-4.5)
[2019-11-20] MEDS: GABAPENTIN 300 MG CAPSULE PO SCH ×3 (05:55→21:24)
[2019-11-20] MEDS: BUDESONIDE NEB 0.25 MG/2 ML AMPUL NEB SCH ×2 (08:22→19:50)
--- NOTE | 2019-11-20 08:41 | RADIOLOGY REPORT (SQ) ---
EXAM DESCRIPTION: KUB/ABDOMEN (SINGLE VIEW) IMAGES COMPLETED DATE/TIME: 11/20/2019 4:44 am REASON FOR STUDY: constipation COMPARISON: 11/19/2019 NUMBER OF VIEWS: One view. TECHNIQUE: Supine radiographic image of the abdomen acquired. LIMITATIONS: None. FINDINGS: BOWEL GAS PATTERN: Normal bowel gas pattern. No dilated loops. CONSTIPATION: Moderate CALCIFICATIONS: No suspicious calcifications. SOFT TISSUES: No gross mass or suggestion of organomegaly. HARDWARE: None in the abdomen. BONES: No acute fracture. No worrisome bone lesions. OTHER: Prostatic radiation seeds. IMPRESSION: NO RADIOGRAPHIC EVIDENCE FOR ACUTE ABDOMINAL DISEASE. Moderate constipation. TECHNICAL DOCUMENTATION: JOB ID: [id number] 2010 [employer]- All Rights Reserved Reading location - IP/workstation name: [email or web address]
--- NOTE | 2019-11-20 08:41 | RADIOLOGY REPORT (SQ) ---
EXAM DESCRIPTION: CHEST SINGLE VIEW IMAGES COMPLETED DATE/TIME: 11/20/2019 4:44 am REASON FOR STUDY: pneumonia COMPARISON: 11/19/2019. EXAM PARAMETERS: NUMBER OF VIEWS: One view. TECHNIQUE: Single frontal radiographic view of the chest acquired. RADIATION DOSE: NA LIMITATIONS: None. FINDINGS: LUNGS AND PLEURA: Small right pleural effusion with compressive atelectasis at the right l karie base. Minimal left basilar effusion. Developing patchy peripheral ill-defined opacities may rep resent developing edema or infectious/inflammatory process. MEDIASTINUM AND HILAR STRUCTURES: No masses. Contour normal. HEART AND VASCULAR STRUCTURES: Moderate cardiomegaly. Mild pulmonary edema. BONES: No acute findings. HARDWARE: None in the chest. OTHER: No other significant finding. IMPRESSION: Mild to moderate pulmonary edema. Small bilateral pleural effusions, with compressive a telectasis at the right lung base. TECHNICAL DOCUMENTATION: JOB ID: [id number] 2010 [employer]- All Rights Reserved Reading location - IP/workstation name: [email or web address]
[2019-11-20 09:47] LABS: ANION GAP 6 (5-19); BLOOD UREA NITROGEN 37 mg/dL (7-20); CALCIUM 8.2 mg/dL (8.4-10.2); CARBON DIOXIDE 32 mmol/L (22-30); CHLORIDE 98 mmol/L (98-107); GLUCOSE 174 mg/dL (75-110); POTASSIUM 4.3 mmol/L (3.6-5.0)
[2019-11-20] MEDS ORDERED: FUROSEMIDE INJ/PF 40 MG/4 ML SDV ONE (10:14)
[2019-11-20] MEDS: ASPIRIN 81 MG TABLET, CHEWABLE PO SCH (10:18)
[2019-11-20] MEDS: METOPROLOL TARTRATE 25 MG TABLET PO SCH ×2 (10:18→21:25)
[2019-11-20] MEDS: RIVAROXABAN 10 MG TABLET PO SCH (10:19)
[2019-11-20] MEDS: LINEZOLID 600 MG TABLET PO SCH ×2 (10:19→21:57)
[2019-11-20] MEDS: FLUTICASONE NASAL SPRAY 50 MCG/SPRY 120 SPRAY/16 GM NASL SCH (10:19)
[2019-11-20] MEDS: PANTOPRAZOLE SODIUM 40 MG VIAL IV SCH (10:19)
--- NOTE | 2019-11-20 10:22 | PDOC CRITICAL CARE PROG REPORT ---
General Date:: 11/19/19 ICU Day:: 12 Hospital Day:: 12 Resuscitation Status: Full Code Medical Power of Fisher Pot: Events in the past 12 to 24 Hours:: This 74-year-old male was initially admitted on 11/07 after presenting to the emergency department with altered mental status (unresponsive). He was found to have hypoglycemia (glucose 40 mg/dL). He was intubated for altered mental status. He was successfully extubated on 11/10/2019 but has been intermittently confused with agitation/delirium, prompting Precedex infusion. 11/18: Precedex infusion was discontinued yesterday. Nursing staff reports that the patient was more alert and oriented yesterday than today. At the time of clinical interview today, the patient is awake. He is verbal but clearly confused. He is oriented only to self. Patient denies pain/discomfort. He denies shortness of breath. He is on supplemental oxygen at 5 LPM via nasal cannula. The nursing staff reports that he has been witnessed to have apneic episodes during sleep, associated with oxygen desaturation. He has not had a bowel movement during his hospitalization. He has had multiple enemas and even experienced rectal bleeding. But, no BM. Review of systems relevant to events:: Neuropsychiatric: Altered mental status/confusion Renal: Acute on chronic III/IV kidney disease Reason for ICU Addmission:: Hypoglycemic coma with need for mechanical ventilation, now extubated - Medications: Medications reviewed and adjusted accordingly: Yes Vasopressors:: None Physical Exam Vital Signs: Temp Pulse Resp BP Pulse Ox 98.8 F 76 18 167/94 H 88 L 11/19/19 03:18 11/19/19 09:00 11/19/19 10:09 11/19/19 10:09 11/19/19 10:09 Intake & Output 11/18/19 11/19/19 11/20/19 06:59 06:59 06:59 Intake Total 1000 528 236 Output Total 1400 1850 250 Balance -400 -1322 -14 Weight 102.8 kg 100.2 kg Weight/Height Weight 100.2 kg Height 1.8 m General appearance: PRESENT: no acute distress, well-developed, well-nourished Head exam: PRESENT: atraumatic, normocephalic Eye exam: PRESENT: conjunctiva pink, EOMI, PERRLA. ABSENT: scleral icterus Mouth exam: PRESENT: moist, tongue midline Neck exam: ABSENT: carotid bruit, JVD, lymphadenopathy, thyromegaly Respiratory exam: PRESENT: rhonchi, unlabored. ABSENT: accessory muscle use, rales, wheezes Cardiovascular exam: PRESENT: irregular rhythm. ABSENT: diastolic murmur, rubs, systolic murmur GI/Abdominal exam: PRESENT: normal bowel sounds, soft. ABSENT: distended, guarding, mass, organolmegaly, rebound, tenderness Gentrourinary exam: PRESENT: indwelling catheter Extremities exam: PRESENT: full ROM. ABSENT: calf tenderness, clubbing, pedal edema Musculoskeletal exam: PRESENT: normal inspection. ABSENT: deformity Neurological exam: PRESENT: altered, oriented to person, reflexes normal, CN II- XII grossly intact. ABSENT: oriented to place, oriented to time, oriented to situation, motor sensory deficit Psychiatric exam: PRESENT: flat affect. ABSENT: agitated, anxious Focused psych exam: ABSENT: paranoid, pressured speech, psychomotor agitation Skin exam: PRESENT: dry, intact, warm. ABSENT: cyanosis, rash Laboratory/Radiographs Laboratory Results: 11/08/19 11/08/19 15:23 15:23 Creatine Kinase 200 H Troponin I 0.093 Impressions: Head CT 11/08/19 12:29 IMPRESSION: CHRONIC CHANGES OF ATROPHY AND MICROVASCULAR ISCHEMIA. NO ACUTE PROCESS. EVIDENCE OF ACUTE STROKE: NO. Chest X-Ray 11/12/19 06:00 IMPRESSION: NO SIGNIFICANT CHANGE IN APPEARANCE OF THE CHEST. KUB X-Ray 11/17/19 00:00 IMPRESSION: Enteric tube proximal port projects at the level of the gastroesophageal junction; recommend advancing 10 cm. All labs, radiographs, diagnostic studies and EKGs were personally reviewed: Yes In addition, reports of radiographic and diagnostic studies were read: Yes Assessment and Plan - Diagnosis (1) Acute respiratory failure with hypoxia and hypercapnia Is this a current diagnosis for this admission?: Yes Plan: Continue cefepime 1 g IV every 12 hours (7-day course). Continue DuoNeb. Add Pulmicort. Change linezolid to 7-day course. Wean supplemental oxygen as tolerated. Keep SpO2 88-93%. As the patient is able to take p.o., stop maintenance IV fluids. (2) Acute metabolic encephalopathy Is this a current diagnosis for this admission?: Yes Plan: Change gabapentin to 600 mg p.o. every 8 hours (dosage interval changed from every 6 to every 8). (3) Pneumonia of left upper lobe due to methicillin resistant Staphylococcus aureus (MRSA) Is this a current diagnosis for this admission?: Yes Plan: Change linezolid to 7-day course. (4) Enterobacter cloacae pneumonia Is this a current diagnosis for this admission?: Yes Plan: Cefepime 1 g IV every 12 hours (7-day course). (5) CKD (chronic kidney disease) Qualifiers: Chronic kidney disease stage: stage 4 (severe) Qualified Code(s): N18.4 - Chronic kidney disease, stage 4 (severe) Is this a current diagnosis for this admission?: Yes (6) UTI (urinary tract infection), bacterial Is this a current diagnosis for this admission?: Yes Plan: E. coli UTI covered by cefepime. (7) Longstanding persistent atrial fibrillation Is this a current diagnosis for this admission?: Yes Plan: Continue Xarelto. Continue Lopressor 25 mg p.o. every 12 hours for rate control. (8) Aspiration into lower respiratory tract Qualifiers: Encounter type: initial encounter Qualified Code(s): T17.800A - Unspecified foreign body in other parts of respiratory tract causing asphyxiation, initial encounter Is this a current diagnosis for this admission?: Yes Plan: Resolved (9) Hypoglycemic coma due to diabetes mellitus Is this a current diagnosis for this admission?: Yes Critical Time Critical Time (minutes): 60 Level of Care: IMCU -: 1. The care of a critical patient is a dynamic process. This note is a artist representative synopsis but static in nature. The timeframe for treatments given in order is not necessarily the actual time these treatments may have been done. 2. This patient requires critical care secondary to ongoing requirements for therapy not offered or safe outside the critical care environment. Transfer to a lower level of care will result in altered life or limb morbidity and mortality. 3. Multidisciplinary rounds completed. 4. ABCDE bundle addressed.
[2019-11-20] MEDS ORDERED: FUROSEMIDE INJ/PF 40 MG/4 ML SDV IV ONE (12:30)
--- NOTE | 2019-11-20 15:37 | PDOC CRITICAL CARE PROG REPORT ---
General Date:: 11/20/19 ICU Day:: 13 Hospital Day:: 13 Resuscitation Status: Full Code Medical Power of Sausage Mixer: Events in the past 12 to 24 Hours:: This 74-year-old male was initially admitted on 11/07 after presenting to the emergency department with altered mental status (unresponsive). He was found to have hypoglycemia (glucose 40 mg/dL). He was intubated for altered mental status. He was successfully extubated on 11/10/2019 but has been intermittently confused with agitation/delirium, prompting Precedex infusion. 11/18: Precedex infusion was discontinued yesterday. Nursing staff reports that the patient was more alert and oriented yesterday than today. At the time of clinical interview today, the patient is awake. He is verbal but clearly confused. He is oriented only to self. Patient denies pain/discomfort. He denies shortness of breath. He is on supplemental oxygen at 5 LPM via nasal cannula. The nursing staff reports that he has been witnessed to have apneic episodes during sleep, associated with oxygen desaturation. He has not had a bowel movement during his hospitalization. He has had multiple enemas and even experienced rectal bleeding. But, no BM. 11/19: Mentation is much better today. On supplemental oxygen at 5 LPM via nasal cannula. Met with the patient's and daughter yesterday at the bedside, updated. Review of systems relevant to events:: Neuropsychiatric: Altered mental status/confusion Renal: Acute on chronic III/IV kidney disease Reason for ICU Addmission:: Hypoglycemic coma with need for mechanical ventilation, now extubated - Medications: Medications reviewed and adjusted accordingly: Yes Physical Exam Vital Signs: Temp Pulse Resp BP Pulse Ox 99.3 F 91 16 140/75 H 84 L 11/20/19 03:30 11/20/19 08:22 11/20/19 10:12 11/20/19 10:12 11/20/19 10:12 Intake & Output 11/19/19 11/20/19 11/21/19 06:59 06:59 06:59 Intake Total 528 236 350 Output Total 1850 2200 1150 Balance -8722 -1964 -800 Weight 100.2 kg 100.1 kg Weight/Height Weight 100.1 kg Height 1.8 m General appearance: PRESENT: no acute distress, well-developed, well-nourished Head exam: PRESENT: atraumatic, normocephalic Eye exam: PRESENT: conjunctiva pink, EOMI, PERRLA. ABSENT: scleral icterus Mouth exam: PRESENT: moist, tongue midline Neck exam: ABSENT: carotid bruit, JVD, lymphadenopathy, thyromegaly Respiratory exam: PRESENT: crackles, decreased breath sounds. ABSENT: rhonchi, wheezes Cardiovascular exam: PRESENT: RRR. ABSENT: diastolic murmur, rubs, systolic murmur Pulses: PRESENT: normal dorsalis pedis pul GI/Abdominal exam: PRESENT: normal bowel sounds, soft. ABSENT: distended, guarding, mass, organolmegaly, rebound, tenderness Extremities exam: PRESENT: full ROM, pedal edema. ABSENT: calf tenderness, clubbing Neurological exam: PRESENT: alert, awake, oriented to person, oriented to place, oriented to time, oriented to situation, CN II-XII grossly intact. ABSENT: motor sensory deficit Psychiatric exam: PRESENT: appropriate affect, normal mood. ABSENT: homicidal ideation, suicidal ideation Laboratory/Radiographs Laboratory Results: 11/20/19 03:53 11/20/19 09:21 11/19/19 11/20/19 11/20/19 19:15 03:53 03:53 WBC 12.6 H RBC 3.86 L Hgb 11.6 L Hct 34.8 L MCV 90 MCH 30.1 MCHC 33.4 RDW 13.2 Plt Count 232 Seg Neutrophils % 76.0 Sodium 137.0 Potassium 3.9 Chloride 97 L Carbon Dioxide 35 H Anion Gap 5 BUN 40 H Creatinine 2.40 H Est GFR ( Amer) 32 L Glucose 204 H Calcium 8.2 L Phosphorus 2.3 L Magnesium 2.0 11/20/19 09:21 WBC RBC Hgb Hct MCV MCH MCHC RDW Plt Count Seg Neutrophils % Sodium 136.1 L Potassium 4.3 Chloride 98 Carbon Dioxide 32 H Anion Gap 6 BUN 37 H Creatinine 2.29 H Est GFR ( Amer) 34 L Glucose 174 H Calcium 8.2 L Phosphorus Magnesium 2.1 11/08/19 11/08/19 11/20/19 15:23 15:23 03:53 Creatine Kinase 200 H Troponin I 0.093 NT-Pro-B Natriuret Pep 03870 H Impressions: Head CT 11/08/19 12:29 IMPRESSION: CHRONIC CHANGES OF ATROPHY AND MICROVASCULAR ISCHEMIA. NO ACUTE PROCESS. EVIDENCE OF ACUTE STROKE: NO. Chest X-Ray 11/20/19 05:00 IMPRESSION: Mild to moderate pulmonary edema. Small bilateral pleural effusions, with compressive atelectasis at the right lung base. KUB X-Ray 11/20/19 05:00 IMPRESSION: NO RADIOGRAPHIC EVIDENCE FOR ACUTE ABDOMINAL DISEASE. Moderate constipation. All labs, radiographs, diagnostic studies and EKGs were personally reviewed: Yes In addition, reports of radiographic and diagnostic studies were read: Yes Assessment and Plan - Diagnosis (1) Acute respiratory failure with hypoxia and hypercapnia Is this a current diagnosis for this admission?: Yes Plan: Continue cefepime 1 g IV every 12 hours (7-day course) and linezolid 600 mg IV every 6 12 hours (7-day course). Continue DuoNeb/Pulmicort. Wean supplemental oxygen as tolerated. Keep SpO2 88-93%. As the patient is able to take p.o., stop maintenance IV fluids. (2) Acute metabolic encephalopathy Is this a current diagnosis for this admission?: Yes Plan: Continue gabapentin 600 mg p.o. every 8 hours. (3) Pneumonia of left upper lobe due to methicillin resistant Staphylococcus aureus (MRSA) Is this a current diagnosis for this admission?: Yes Plan: On linezolid (7-day course) (4) Enterobacter cloacae pneumonia Is this a current diagnosis for this admission?: Yes Plan: On cefepime 1 g IV every 12 hours (7-day course). (5) CKD (chronic kidney disease) Qualifiers: Chronic kidney disease stage: stage 4 (severe) Qualified Code(s): N18.4 - Chronic kidney disease, stage 4 (severe) Is this a current diagnosis for this admission?: Yes (6) UTI (urinary tract infection), bacterial Is this a current diagnosis for this admission?: Yes (7) Longstanding persistent atrial fibrillation Is this a current diagnosis for this admission?: Yes Plan: Continue Xarelto. Continue Lopressor 25 mg p.o. every 12 hours for rate control. (8) Aspiration into lower respiratory tract Qualifiers: Encounter type: initial encounter Qualified Code(s): T17.800A - Unspecified foreign body in other parts of respiratory tract causing asphyxiation, initial encounter Is this a current diagnosis for this admission?: Yes (9) Hypoglycemic coma due to diabetes mellitus Is this a current diagnosis for this admission?: Yes Critical Time Critical Time (minutes): 60 Level of Care: IMCU -: 1. The care of a critical patient is a dynamic process. This note is a footwear sales representative synopsis but static in nature. The timeframe for treatments given in order is not necessarily the actual time these treatments may have been done. 2. This patient requires critical care secondary to ongoing requirements for therapy not offered or safe outside the critical care environment. Transfer to a lower level of care will result in altered life or limb morbidity and mortality. 3. Multidisciplinary rounds completed. 4. ABCDE bundle addressed.
--- NOTE | 2019-11-20 18:13 | PDOC PROGRESS REPORT ---
Subjective Progress Note for:: 11/20/19 Subjective:: Patient transferred out of ICU today and now on floor. Asked how he is doing patient states "I am doing good". Reason For Visit: COMA,HYPOGLYCEMIC Physical Exam Vital Signs: Temp Pulse Resp BP Pulse Ox 99.3 F 91 16 166/89 H 98 11/20/19 03:30 11/20/19 14:15 11/20/19 15:00 11/20/19 14:10 11/20/19 15:00 Intake & Output 11/19/19 11/20/19 11/21/19 06:59 06:59 06:59 Intake Total 528 236 350 Output Total 1850 2200 1550 Balance -7892 1964 -1200 Weight 100.2 kg 100.1 kg General appearance: PRESENT: no acute distress, cooperative, obese, other - Eating supper at time of exam Head exam: PRESENT: atraumatic, normocephalic Eye exam: PRESENT: conjunctiva pink Mouth exam: PRESENT: moist, tongue midline Neck exam: PRESENT: JVD - JVD to 3 cm above clavicle Respiratory exam: PRESENT: decreased breath sounds - Entry diminished at bases bilaterally, symmetrical, unlabored. ABSENT: accessory muscle use Cardiovascular exam: PRESENT: irregular rhythm, +S1, +S2, other - A. fib on telemetry Pulses: PRESENT: normal carotid pulses, normal radial pulses Vascular exam: PRESENT: normal capillary refill GI/Abdominal exam: PRESENT: normal bowel sounds, soft. ABSENT: distended, tenderness Rectal exam: PRESENT: deferred Extremities exam: PRESENT: pedal edema, +1 edema - 1 to 2 mm pitting pretibial edema bilaterally. ABSENT: calf tenderness Neurological exam: PRESENT: alert, awake, oriented to person, oriented to place, oriented to situation Psychiatric exam: PRESENT: normal mood. ABSENT: agitated, anxious Skin exam: PRESENT: dry, normal color, warm Results Laboratory Results: 11/20/19 03:53 11/20/19 09:21 11/19/19 11/20/19 11/20/19 19:15 03:53 03:53 WBC 12.6 H RBC 3.86 L Hgb 11.6 L Hct 34.8 L MCV 90 MCH 30.1 MCHC 33.4 RDW 13.2 Plt Count 232 Seg Neutrophils % 76.0 Sodium 137.0 Potassium 3.9 Chloride 97 L Carbon Dioxide 35 H Anion Gap 5 BUN 40 H Creatinine 2.40 H Est GFR ( Amer) 32 L Glucose 204 H Calcium 8.2 L Phosphorus 2.3 L Magnesium 2.0 11/20/19 09:21 WBC RBC Hgb Hct MCV MCH MCHC RDW Plt Count Seg Neutrophils % Sodium 136.1 L Potassium 4.3 Chloride 98 Carbon Dioxide 32 H Anion Gap 6 BUN 37 H Creatinine 2.29 H Est GFR ( Amer) 34 L Glucose 174 H Calcium 8.2 L Phosphorus Magnesium 2.1 11/08/19 11/08/19 11/20/19 15:23 15:23 03:53 Creatine Kinase 200 H Troponin I 0.093 NT-Pro-B Natriuret Pep 11012 H Impressions: Head CT 11/08/19 12:29 IMPRESSION: CHRONIC CHANGES OF ATROPHY AND MICROVASCULAR ISCHEMIA. NO ACUTE PROCESS. EVIDENCE OF ACUTE STROKE: NO. Chest X-Ray 11/20/19 05:00 IMPRESSION: Mild to moderate pulmonary edema. Small bilateral pleural effusions, with compressive atelectasis at the right lung base. KUB X-Ray 11/20/19 05:00 IMPRESSION: NO RADIOGRAPHIC EVIDENCE FOR ACUTE ABDOMINAL DISEASE. Moderate constipation. Assessment and Plan - Diagnosis (1) Hypoglycemic coma due to diabetes mellitus Is this a current diagnosis for this admission?: Yes Plan: Resolved now hyperglycemic Continue FSBS with SSI correction scale but change to AC/HS (2) Acute metabolic encephalopathy Is this a current diagnosis for this admission?: Yes Plan: Metabolic encephalopathy continues to improve Frequent reorientation Ongoing supportive care There was some discussion about consulting psychiatry however patient's mental status continues to improve -defer for now (3) Acute respiratory failure with hypoxia and hypercapnia Is this a current diagnosis for this admission?: Yes Plan: Patient's FiO2 has weaned to 4 L, continue to wean as tolerated Continue albuterol/ipratropium nebs every 6 hours Continue budesonide 2.25 mg nebs every 12 hours (4) Pneumonia Is this a current diagnosis for this admission?: Yes Plan: Pneumonia is polymicrobial (Enterobacter Cloacae/MRSA) Continue linezolid 600 mg p.o. every 12 hours, to complete on 11/23/2019 Additional treatment as noted above (5) UTI (urinary tract infection), bacterial Is this a current diagnosis for this admission?: Yes Plan: E. coli UTI treated Ellsworth intact, will request Ellsworth to be removed (6) CKD (chronic kidney disease) Qualifiers: Chronic kidney disease stage: stage 4 (severe) Qualified Code(s): N18.4 - Chronic kidney disease, stage 4 (severe) Is this a current diagnosis for this admission?: Yes Plan: Historic baseline creatinine 2.0-2.5 Avoid nephrotoxins as able Monitor (7) Longstanding persistent atrial fibrillation Is this a current diagnosis for this admission?: Yes Plan: Adequate rate control Continue metoprolol tartrate 25 mg p.o. every 12 hours Continue rivaroxaban 20 mg p.o. daily (8) HTN (hypertension) Is this a current diagnosis for this admission?: Yes Plan: BP labile but overall adequately controlled Continue beta-angela as noted above (9) Dyslipidemia Is this a current diagnosis for this admission?: Yes Plan: Continue atorvastatin 40 mg p.o. daily (10) Acute on chronic diastolic heart failure Is this a current diagnosis for this admission?: Yes Plan: BNP 11,100 Patient received furosemide 40 mg IV x1 this a.m. Monitor BMP and diurese as needed - Time Time Spent with patient: 15-24 minutes Medications reviewed and adjusted accordingly: Yes Anticipated Discharge Disposition: Home, Self Care Anticipated Discharge Timeframe: Unable to determine at this time
[2019-11-20 20:12] LABS: ARTERIAL BLOOD H2CO3 1.43 mmol/L (1.05-1.35); ARTERIAL BLOOD HCO3 34.8 mmol/L (20-24); ARTERIAL BLOOD O2 SATURATION 99.7 % (94-98); ARTERIAL BLOOD PCO2 47.6 mmHg (35-45); ARTERIAL BLOOD PH 7.48 (7.35-7.45); ARTERIAL BLOOD PO2 303.8 mmHg (80-100); ARTERIAL BLOOD TOTAL CO2 36.3 mmol/L (23-27)
[2019-11-20 20:13] LABS: ARTERIAL BLOOD FIO2 6L
[2019-11-20] MEDS: ATORVASTATIN CALCIUM 40 MG TABLET PO SCH (21:25)
[2019-11-20] MEDS ORDERED: LINEZOLID 600 MG TABLET ONE (21:50)
[2019-11-21] MEDS: IPRATROPIUM/ALBUTEROL 0.5-2.5 MG/3 ML AMPUL NEB SCH ×3 (02:20→14:26)
[2019-11-21] MEDS: GABAPENTIN 300 MG CAPSULE PO SCH (05:23)
[2019-11-21 07:13] LABS: ABSOLUTE BASOPHILS # (AUTO) 0.2 10^3/uL (0.0-0.2); ABSOLUTE EOSINOPHILS # (AUTO) 0.5 10^3/uL (0.0-0.6); ABSOLUTE LYMPHOCYTES (AUTO) 1.7 10^3/uL (0.5-4.7); ABSOLUTE MONOCYTES (AUTO) 1.8 10^3/uL (0.1-1.4); ABSOLUTE NEUT (AUTO) 12.5 10^3/uL (1.7-8.2); BASOPHILS % (AUTO) 1.2 % (0-2); EOSINOPHILS % (AUTO) 2.8 % (0-6); HEMATOCRIT 35.1 % (37.9-51.0); HEMOGLOBIN 11.7 g/dL (13.5-17.0); MEAN CORPUSCULAR HEMOGLOBIN 30.4 pg (27.0-33.4); MEAN CORPUSCULAR HGB CONC 33.3 g/dL (32.0-36.0); MEAN CORPUSCULAR VOLUME 91 fl (80-97); MONOCYTES % (AUTO) 10.8 % (3-13); PLATELET COUNT 230 10^3/uL (150-450); RED BLOOD COUNT 3.84 10^6/uL (4.35-5.55); RED CELL DISTRIBUTION WIDTH 13.6 % (11.5-14.0); SEGMENTED NEUTROPHILS % (AUTO) 75.2 % (42-78); TOTAL CELLS COUNTED % (AUTO) 100 %; WHITE BLOOD COUNT 16.6 10^3/uL (4.0-10.5)
[2019-11-21 07:47] LABS: ANION GAP 8 (5-19); BLOOD UREA NITROGEN 37 mg/dL (7-20); CALCIUM 8.1 mg/dL (8.4-10.2); CARBON DIOXIDE 31 mmol/L (22-30); CHLORIDE 96 mmol/L (98-107); GLUCOSE 328 mg/dL (75-110); POTASSIUM 4.1 mmol/L (3.6-5.0)
[2019-11-21] MEDS ORDERED: EPINEPHRINE INJ 1 MG/10 ML DISP.SYRIN ONE (08:00)
[2019-11-21] MEDS ORDERED: DOPAMINE HCL/D5W 800 MG/250 ML RTU BAG IV ONE (08:00)
[2019-11-21] MEDS: DOPAMINE HCL/DEXTROSE 5%-WATER 800 MG/250 ML RTUINJ IV PRN (08:28)
--- NOTE | 2019-11-21 08:30 | Progress Note ---
Provider Note Provider Note: Patient received to the floor from the ICU in the afternoon of 11/20/2019. At the time of transfer from the ICU the patient was clinically and hemodynamically stable. This a.m. a rapid response was called on the patient which quickly deteriorated into a CODE BLUE. The patient was found in PEA arrest. Full ACLS resuscitation was performed, see code sheet. Patient achieved ROSC after CPR and 3 rounds of epinephrine. A right femoral TLC was placed during the event. The patient was intubated successfully and transferred to the ICU under the care of the trimming caser team.
[2019-11-21] MEDS ORDERED: SODIUM BICARBONATE 8.4% INJ 50 MEQ/50 ML DISP.SYRIN ONE (08:42)
--- NOTE | 2019-11-21 08:47 | Operative Report ---
Bedside Procedure - History of Present Illness History of Present Illness: Indication: Respiratory Failure Procedure gamewell operator: KIA Alcantar Attending physician: Dr. Gerardo Consent: The procedure was performed emergently and the permission was implied because of the emergent nature. Procedure summary: Intubation was in response to a cardiac/respiratory arrest. My hands were washed immediately prior to the procedure. I were surgical cap, mask with protective eyewear, gown and gloves throughout the procedure. Cricoid pressure was maintained from time induction agent was given the time of cuff balloon inflation. Using a MAC 4 laryngoscope and a size 7.5 endotracheal tube with stylette, the patient was intubated on the first attempt. The stylette was removed and the cuff balloon was inflated. Appropriate endotracheal tube position was confirmed by direct visualization of vocal cord passage, CO2 col orimetric indicator and symmetric breath sounds. The tube was secured at 24 centimeters at the lips. Post intubation chest x-ray pending. Indication for Procedure: Respiratory arrest Provider: ANDREW DURON - Intubation Orotracheal Airway evaluation: Normal anatomy Mallampati Classification: Class 3 Intubation method: Orotracheal Blade size: 4 ETT size: 7.5 ETT secured at: Lips ETT secured at (cm): 24 Intubation Complications: No complications
--- NOTE | 2019-11-21 08:49 | Progress Note ---
Provider Note Provider Note: I responded to a cardiac arrest call overhead. CPR was in progress in my arrival. Central line was being placed. Patient had no pulse and no spontaneous respirations. 7.5 ET tube was placed and confirmed by capnography. Please see associated intubation note. Please see code documentation for details regarding this cardiac arrest.
[2019-11-21 09:00] LABS: ARTERIAL BLOOD BASE EXCESS -10.9 mmol/L; ARTERIAL BLOOD HCO3 18.8 mmol/L (20-24); ARTERIAL BLOOD O2 SATURATION 83.8 % (94-98); ARTERIAL BLOOD PCO2 59.7 mmHg (35-45); ARTERIAL BLOOD PO2 63.5 mmHg (80-100); ARTERIAL BLOOD TOTAL CO2 20.6 mmol/L (23-27)
[2019-11-21 09:01] LABS: ARTERIAL BLOOD FIO2 100%
[2019-11-21 09:02] LABS: ARTERIAL BLOOD PH 7.12 (7.35-7.45)
[2019-11-21] MEDS: BUDESONIDE NEB 0.25 MG/2 ML AMPUL NEB SCH ×2 (09:26→20:43)
[2019-11-21] MEDS ORDERED: FENTANYL CITRATE INJ/PF 100 MCG/2 ML AMPUL ONE ×2 (09:32→17:01)
[2019-11-21 09:38] LABS: ABSOLUTE BASOPHILS # (AUTO) 0.1 10^3/uL (0.0-0.2); ABSOLUTE EOSINOPHILS # (AUTO) 0.3 10^3/uL (0.0-0.6); ABSOLUTE LYMPHOCYTES (AUTO) 2.1 10^3/uL (0.5-4.7); ABSOLUTE MONOCYTES (AUTO) 1.3 10^3/uL (0.1-1.4); ABSOLUTE NEUT (AUTO) 14.7 10^3/uL (1.7-8.2); BASOPHILS % (AUTO) 0.6 % (0-2); EOSINOPHILS % (AUTO) 1.6 % (0-6); HEMATOCRIT 34.8 % (37.9-51.0); HEMOGLOBIN 11.2 g/dL (13.5-17.0); LYMPHOCYTES % (AUTO) 11.5 % (13-45); MEAN CORPUSCULAR HEMOGLOBIN 30.1 pg (27.0-33.4); MEAN CORPUSCULAR HGB CONC 32.1 g/dL (32.0-36.0); MEAN CORPUSCULAR VOLUME 94 fl (80-97); PLATELET COUNT 229 10^3/uL (150-450); RED BLOOD COUNT 3.71 10^6/uL (4.35-5.55); RED CELL DISTRIBUTION WIDTH 13.4 % (11.5-14.0); SEGMENTED NEUTROPHILS % (AUTO) 79.3 % (42-78); TOTAL CELLS COUNTED % (AUTO) 100 %; WHITE BLOOD COUNT 18.6 10^3/uL (4.0-10.5)
[2019-11-21 09:40] LABS: ALBUMIN 2.6 g/dL (3.5-5.0); ALKALINE PHOSPHATASE 72 U/L (38-126); ANION GAP 15 (5-19); ASPARTATE AMINO TRANSFERASE 71 U/L (17-59); BILIRUBIN,DIRECT 0.2 mg/dL (0.0-0.4); BILIRUBIN,TOTAL 1.3 mg/dL (0.2-1.3); BLOOD UREA NITROGEN 35 mg/dL (7-20); CALCIUM 7.8 mg/dL (8.4-10.2); CARBON DIOXIDE 25 mmol/L (22-30); CHLORIDE 95 mmol/L (98-107); CREATINE KINASE 135 U/L (55-170); GLUCOSE 394 mg/dL (75-110); PHOSPHORUS 5.4 mg/dL (2.5-4.5); POTASSIUM 4.4 mmol/L (3.6-5.0); TOTAL PROTEIN 5.6 g/dL (6.3-8.2)
[2019-11-21 09:54] LABS: CREATINE KINASE MB 4.13 ng/mL (<4.55)
[2019-11-21 10:01] LABS: TROPONIN I 0.113 ng/mL
[2019-11-21 10:14] LABS: ARTERIAL BLOOD BASE EXCESS 5.2 mmol/L; ARTERIAL BLOOD H2CO3 1.64 mmol/L (1.05-1.35); ARTERIAL BLOOD HCO3 31.6 mmol/L (20-24); ARTERIAL BLOOD O2 SATURATION 93.8 % (94-98); ARTERIAL BLOOD PCO2 54.5 mmHg (35-45); ARTERIAL BLOOD PH 7.38 (7.35-7.45); ARTERIAL BLOOD PO2 71.4 mmHg (80-100); ARTERIAL BLOOD TOTAL CO2 33.3 mmol/L (23-27)
[2019-11-21 10:15] LABS: ARTERIAL BLOOD FIO2 100%
[2019-11-21] MEDS: INSULIN LISPRO 100 UNIT/ML 3 ML VIAL SUBCUT SCH ×3 (11:40→18:32)
--- NOTE | 2019-11-21 12:05 | RADIOLOGY REPORT (SQ) ---
EXAM DESCRIPTION: CHEST SINGLE VIEW IMAGES COMPLETED DATE/TIME: 11/21/2019 11:01 am REASON FOR STUDY: ETT placement verification COMPARISON: 11/19/2028 EXAM PARAMETERS: NUMBER OF VIEWS: One view. TECHNIQUE: Single frontal radiographic view of the chest acquired. RADIATION DOSE: NA LIMITATIONS: None. FINDINGS: LUNGS AND PLEURA: Patchy interstitial and alveolar opacities, asymmetric and increased on the right. Likely small bilateral effusions. No pneumothorax. MEDIASTINUM AND HILAR STRUCTURES: Stable. HEART AND VASCULAR STRUCTURES: Stable. BONES: No acute findings. HARDWARE: Endotracheal tube tip overlies midthoracic trachea. Enteric tube tip below diaphragm but e xcluded by collimation. OTHER: No other significant finding. IMPRESSION: Mildly worsened patchy interstitial and alveolar opacities, right greater than left. Fi ndings may represent asymmetric edema or multifocal infection. Endotracheal tube tip overlies midthoracic trachea. TECHNICAL DOCUMENTATION: JOB ID: [id number] 2010 [employer]- All Rights Reserved Reading location - IP/workstation name: [email or web address]
--- NOTE | 2019-11-21 12:06 | RADIOLOGY REPORT (SQ) ---
EXAM DESCRIPTION: KUB/ABDOMEN (SINGLE VIEW) IMAGES COMPLETED DATE/TIME: 11/21/2019 11:01 am REASON FOR STUDY: NGT placement verification COMPARISON: 11/20/2019 NUMBER OF VIEWS: One view. TECHNIQUE: Supine radiographic image of the abdomen acquired. LIMITATIONS: Lower abdomen excluded by collimation. FINDINGS: BOWEL GAS PATTERN: Normal bowel gas pattern. No dilated loops. CALCIFICATIONS: No suspicious calcifications. SOFT TISSUES: No gross mass or suggestion of organomegaly. HARDWARE: Nasoenteric tube tip overlies gastric body. Defibrillator pads overlie thorax. BONES: No acute fracture. No worrisome bone lesions. OTHER: Patchy bilateral airspace disease. IMPRESSION: Nasoenteric tube tip overlies gastric body. TECHNICAL DOCUMENTATION: JOB ID: [id number] 2010 [employer] All Rights Reserved Reading location - IP/workstation name: [email or web address]
[2019-11-21] MEDS ORDERED: SODIUM BICARBONATE 8.4% INJ 50 MEQ/50 ML DISP.SYRIN IV ONE (13:20)
[2019-11-21] MEDS ORDERED: FENTANYL CITRATE INJ/PF 100 MCG/2 ML AMPUL IV ONE ×2 (13:30→14:05)
[2019-11-21] MEDS: FLUTICASONE NASAL SPRAY 50 MCG/SPRY 120 SPRAY/16 GM NASL SCH (13:37)
[2019-11-21] MEDS: METOPROLOL TARTRATE 25 MG TABLET PO SCH (13:37)
[2019-11-21] MEDS ORDERED: RIVAROXABAN 10 MG TABLET NG ONE (14:00)
[2019-11-21] MEDS ORDERED: ASPIRIN 81 MG TABLET, CHEWABLE NG ONE (14:00)
[2019-11-21] MEDS ORDERED: LINEZOLID 600 MG TABLET NG SCH ×2 (14:00→22:00)
[2019-11-21] MEDS: GABAPENTIN 300 MG CAPSULE NG SCH ×2 (14:10→21:52)
[2019-11-21] MEDS: SENNOSIDES/DOCUSATE 8.6-50 MG 1 EACH TABLET NG SCH ×2 (14:10→18:35)
[2019-11-21] MEDS: PANTOPRAZOLE SODIUM 40 MG VIAL IV SCH (14:12)
[2019-11-21] MEDS ORDERED: VANCOMYCIN HCL 0 MG in DEXTROSE 5%-WATER 250 ML IV NR (14:15)
[2019-11-21] MEDS: ASPIRIN 81 MG TABLET, CHEWABLE PO SCH (14:23)
[2019-11-21] MEDS: LINEZOLID 600 MG TABLET PO SCH (14:23)
[2019-11-21] MEDS: RIVAROXABAN 10 MG TABLET PO SCH (14:23)
[2019-11-21] MEDS: ALBUTEROL SULFATE 0.083% NEB 2.5 MG/3 ML AMPUL NEB SCH ×2 (14:25→20:43)
[2019-11-21 15:14] LABS: ARTERIAL BLOOD BASE EXCESS 5.1 mmol/L; ARTERIAL BLOOD FIO2 60%; ARTERIAL BLOOD H2CO3 1.34 mmol/L (1.05-1.35); ARTERIAL BLOOD HCO3 29.8 mmol/L (20-24); ARTERIAL BLOOD O2 SATURATION 97.9 % (94-98); ARTERIAL BLOOD PCO2 44.5 mmHg (35-45); ARTERIAL BLOOD PH 7.44 (7.35-7.45); ARTERIAL BLOOD PO2 103.6 mmHg (80-100); ARTERIAL BLOOD TOTAL CO2 31.2 mmol/L (23-27)
[2019-11-21] MEDS ORDERED: FENTANYL CITRATE INJ/PF 100 MCG/2 ML AMPUL IV SCH (17:00)
[2019-11-21] MEDS: FENTANYL CITRATE INJ/PF 100 MCG/2 ML AMPUL IV SCH ×3 (17:05→22:51)
[2019-11-21] MEDS ORDERED: DEXMEDETOMIDINE IN 0.9 % NACL 400 MCG/100 ML RTUPB IV ONE (17:56)
[2019-11-21] MEDS: DEXMEDETOMIDINE IN 0.9 % NACL 400 MCG/100 ML RTUPB IV PRN (17:58)
--- NOTE | 2019-11-21 18:25 | PDOC CRITICAL CARE PROG REPORT ---
General Date:: 11/21/19 ICU Day:: 14 Ventilator Day:: 1 Hospital Day:: 14 Resuscitation Status: Full Code Medical Power of Sawmill Tally Clerk: Events in the past 12 to 24 Hours:: This 74-year-old male was initially admitted on 11/07 after presenting to the emergency department with altered mental status (unresponsive). He was found to have hypoglycemia (glucose 40 mg/dL). He was intubated for altered mental status. He was successfully extubated on 11/10/2019 but has been intermittently confused with agitation/delirium, prompting Precedex infusion. 11/18: Precedex infusion was discontinued yesterday. Nursing staff reports that the patient was more alert and oriented yesterday than today. At the time of clinical interview today, the patient is awake. He is verbal but clearly conf used. He is oriented only to self. Patient denies pain/discomfort. He denies shortness of breath. He is on supplemental oxygen at 5 LPM via nasal cannula. The nursing staff reports that he has been witnessed to have apneic episodes during sleep, associated with oxygen desaturation. He has not had a bowel movement during his hospitalization. He has had multiple enemas and even experienced rectal bleeding. But, no BM. 11/19: Mentation is much better today. On supplemental oxygen at 5 LPM via nasal cannula. Met with the patient's and daughter yesterday at the bedside, updated. 11/20: The patient transferred out to [facility] yesterday afternoon. He was seen by the hospitalist service and was noted to be clinically stable. However, early this morning, rapid response team was called to evaluate the patient who reportedly rapidly deteriorated to PEA arrest. ACLS protocol was initiated with ROSC achieved after "3 rounds of epinephrine". He was intubated post resuscitation and was transferred back to the ICU. At the time of clinical interview, the patient is awake. He is following commands. He is thrashing about and makes deliberate attempts to extubate himself. He is on mechanical ventilatory support with an FiO2 of 80%. He is on dopamine infusion for blood pressure support. Review of systems relevant to events:: Neuropsychiatric: Altered mental status/confusion Renal: Acute on chronic III/IV kidney disease Reason for ICU Addmission:: Hypoglycemic coma with need for mechanical ventilation, now extubated - Medications: Medications reviewed and adjusted accordingly: Yes Vasopressors:: Dopamine Physical Exam Vital Signs: Temp Pulse Resp BP Pulse Ox 97.9 F 88 19 138/61 H 100 11/21/19 03:58 11/21/19 03:58 11/21/19 11:15 11/21/19 11:08 11/21/19 12:06 Intake & Output 11/20/19 11/21/19 11/22/19 06:59 06:59 06:59 Intake Total 236 1150 Output Total 2200 2250 500 Balance -1963 -1099 Weight 100.1 kg 94.1 kg Weight/Height Weight 94.1 kg Height 1.8 m General appearance: PRESENT: obese, well-developed, well-nourished Head exam: PRESENT: atraumatic, normocephalic Eye exam: PRESENT: conjunctiva pink, EOMI, PERRLA. ABSENT: scleral icterus Mouth exam: PRESENT: moist, tongue midline Neck exam: ABSENT: carotid bruit, JVD, lymphadenopathy, thyromegaly Respiratory exam: PRESENT: decreased breath sounds. ABSENT: rales, rhonchi, wheezes Cardiovascular exam: PRESENT: irregular rhythm. ABSENT: gallop, rubs, systolic murmur Pulses: PRESENT: normal dorsalis pedis pul GI/Abdominal exam: PRESENT: hypoactive bowel sounds, soft. ABSENT: distended, guarding, mass, organolmegaly, rebound, tenderness Extremities exam: PRESENT: full ROM. ABSENT: calf tenderness, clubbing, pedal edema Neurological exam: PRESENT: alert, awake, reflexes normal, CN II-XII grossly intact. ABSENT: motor sensory deficit Psychiatric exam: PRESENT: appropriate affect, normal mood. ABSENT: homicidal ideation, suicidal ideation Skin exam: PRESENT: dry, intact, warm. ABSENT: cyanosis, rash Tubes/Lines: PRESENT: Endotracheal Tube, Central Line - Right femoral Laboratory/Radiographs Laboratory Results: 11/21/19 08:20 11/21/19 08:20 11/20/19 11/21/19 11/21/19 20:00 06:57 06:57 WBC 16.6 H RBC 3.84 L Hgb 11.7 L Hct 35.1 L MCV 91 MCH 30.4 MCHC 33.3 RDW 13.6 Plt Count 230 Seg Neutrophils % 75.2 Carbonic Acid 1.43 H HCO3/H2CO3 Ratio 24:1 ABG pH 7.48 H ABG pCO2 47.6 H ABG pO2 303.8 H ABG HCO3 34.8 H ABG O2 Saturation 99.7 H ABG Base Excess 10.0 FiO2 6L Sodium 135.3 L Potassium 4.1 Chloride 96 L Carbon Dioxide 31 H Anion Gap 8 BUN 37 H Creatinine 2.73 H Est GFR ( Amer) 28 L Glucose 328 H Lactic Acid Calcium 8.1 L Phosphorus Total Bilirubin AST Alkaline Phosphatase Total Protein Albumin 11/21/19 11/21/19 11/21/19 08:06 08:20 08:20 WBC RBC Hgb Hct MCV MCH MCHC RDW Plt Count Seg Neutrophils % Carbonic Acid 1.80 H HCO3/H2CO3 Ratio 10:1 ABG pH 7.12 L* ABG pCO2 59.7 H ABG pO2 63.5 L ABG HCO3 18.8 L ABG O2 Saturation 83.8 L ABG Base Excess -10.9 FiO2 100% Sodium 134.5 L Potassium 4.4 Chloride 95 L Carbon Dioxide 25 Anion Gap 15 BUN 35 H Creatinine 2.92 H Est GFR ( Amer) 26 L Glucose 394 H Lactic Acid 8.1 H Calcium 7.8 L Phosphorus 5.4 H Total Bilirubin 1.3 AST 71 H Alkaline Phosphatase 72 Total Protein 5.6 L Albumin 2.6 L 11/21/19 11/21/19 08:20 09:47 WBC 18.6 H RBC 3.71 L Hgb 11.2 L Hct 34.8 L MCV 94 MCH 30.1 MCHC 32.1 RDW 13.4 Plt Count 229 Seg Neutrophils % 79.3 H Carbonic Acid 1.64 H HCO3/H2CO3 Ratio 19:1 ABG pH 7.38 ABG pCO2 54.5 H ABG pO2 71.4 L ABG HCO3 31.6 H ABG O2 Saturation 93.8 L ABG Base Excess 5.2 FiO2 100% Sodium Potassium Chloride Carbon Dioxide Anion Gap BUN Creatinine Est GFR ( Amer) Glucose Lactic Acid Calcium Phosphorus Total Bilirubin AST Alkaline Phosphatase Total Protein Albumin 11/08/19 11/08/19 11/20/19 15:23 15:23 03:53 Creatine Kinase 200 H CK-MB (CK-2) Troponin I 0.093 NT-Pro-B Natriuret Pep 61697 H 11/21/19 11/21/19 11/21/19 06:57 08:20 08:20 Creatine Kinase 135 CK-MB (CK-2) 4.13 Troponin I 0.113 NT-Pro-B Natriuret Pep 05667 H 92643 H Impressions: Head CT 11/08/19 12:29 IMPRESSION: CHRONIC CHANGES OF ATROPHY AND MICROVASCULAR ISCHEMIA. NO ACUTE PROCESS. EVIDENCE OF ACUTE STROKE: NO. Chest X-Ray 11/21/19 00:00 IMPRESSION: Mildly worsened patchy interstitial and alveolar opacities, right greater than left. Findings may represent asymmetric edema or multifocal infection. Endotracheal tube tip overlies midthoracic trachea. KUB X-Ray 11/21/19 00:00 IMPRESSION: Nasoenteric tube tip overlies gastric body. All labs, radiographs, diagnostic studies and EKGs were personally reviewed: Yes In addition, reports of radiographic and diagnostic studies were read: Yes Assessment and Plan - Diagnosis (1) Acute respiratory failure with hypoxia and hypercapnia Is this a current diagnosis for this admission?: Yes Plan: * Titrate ventilator settings based on ABG results. * Fentanyl for sedation. May need to add Precedex. * Once extubated, this patient should use NIPPV q HS. He has previously been advised to seek diagnostic polysomnography as an outpatient. But, he should also be evaluated for chronic hypercapnic respiratory failure and possible need for home ventilator system prior to discharge home. (2) Acute metabolic encephalopathy Is this a current diagnosis for this admission?: Yes (3) Pneumonia of left upper lobe due to methicillin resistant Staphylococcus aureus (MRSA) Is this a current diagnosis for this admission?: Yes Plan: Change linezolid to vancomycin (due to linezolid/fentanyl interaction). (4) Enterobacter cloacae pneumonia Is this a current diagnosis for this admission?: Yes Plan: On cefepime 1 g IV every 12 hours (7-day course). (5) CKD (chronic kidney disease) Qualifiers: Chronic kidney disease stage: stage 4 (severe) Qualified Code(s): N18.4 - Chronic kidney disease, stage 4 (severe) Is this a current diagnosis for this admission?: Yes (6) UTI (urinary tract infection), bacterial Is this a current diagnosis for this admission?: Yes (7) Longstanding persistent atrial fibrillation Is this a current diagnosis for this admission?: Yes Plan: Continue Xarelto. Hold metoprolol while on dopamine. (8) Aspiration into lower respiratory tract Qualifiers: Encounter type: initial encounter Qualified Code(s): T17.800A - Unspecified foreign body in other parts of respiratory tract causing asphyxiation, initial encounter Is this a current diagnosis for this admission?: Yes (9) Hypoglycemic coma due to diabetes mellitus Is this a current diagnosis for this admission?: Yes Critical Time Critical Time (minutes): 90 Level of Care: ICU -: 1. The care of a critical patient is a dynamic process. This note is a sales representative education courses synopsis but static in nature. The timeframe for treatments given in order is not necessarily the actual time these treatments may have been done. 2. This patient requires critical care secondary to ongoing requirements for therapy not offered or safe outside the critical care environment. Transfer to a lower level of care will result in altered life or limb morbidity and mortality. 3. Multidisciplinary rounds completed. 4. ABCDE bundle addressed.
[2019-11-21] MEDS: VANCOMYCIN HCL 750 MG in DEXTROSE 5%-WATER 250 ML IV SCH (18:33)
[2019-11-21] MEDS: ATORVASTATIN CALCIUM 40 MG TABLET NG SCH (21:52)
[2019-11-22] MEDS: INSULIN LISPRO 100 UNIT/ML 3 ML VIAL SUBCUT SCH ×4 (00:57→18:02)
[2019-11-22] MEDS: DEXMEDETOMIDINE IN 0.9 % NACL 400 MCG/100 ML RTUPB IV PRN ×3 (01:17→16:50)
[2019-11-22] MEDS: FENTANYL CITRATE INJ/PF 100 MCG/2 ML AMPUL IV SCH ×8 (02:18→23:16)
[2019-11-22] MEDS: ALBUTEROL SULFATE 0.083% NEB 2.5 MG/3 ML AMPUL NEB SCH ×4 (02:34→20:23)
[2019-11-22 02:39] LABS: ABSOLUTE BASOPHILS # (AUTO) 0.2 10^3/uL (0.0-0.2); ABSOLUTE EOSINOPHILS # (AUTO) 0.2 10^3/uL (0.0-0.6); ABSOLUTE LYMPHOCYTES (AUTO) 1.7 10^3/uL (0.5-4.7); ABSOLUTE MONOCYTES (AUTO) 1.9 10^3/uL (0.1-1.4); ABSOLUTE NEUT (AUTO) 12.3 10^3/uL (1.7-8.2); BASOPHILS % (AUTO) 0.9 % (0-2); EOSINOPHILS % (AUTO) 1.1 % (0-6); HEMATOCRIT 33.9 % (37.9-51.0); HEMOGLOBIN 11.1 g/dL (13.5-17.0); LYMPHOCYTES % (AUTO) 10.6 % (13-45); MEAN CORPUSCULAR HEMOGLOBIN 30.1 pg (27.0-33.4); MEAN CORPUSCULAR HGB CONC 32.9 g/dL (32.0-36.0); MEAN CORPUSCULAR VOLUME 91 fl (80-97); MONOCYTES % (AUTO) 11.7 % (3-13); PLATELET COUNT 255 10^3/uL (150-450); RED CELL DISTRIBUTION WIDTH 13.7 % (11.5-14.0); SEGMENTED NEUTROPHILS % (AUTO) 75.7 % (42-78); TOTAL CELLS COUNTED % (AUTO) 100 %; WHITE BLOOD COUNT 16.3 10^3/uL (4.0-10.5)
[2019-11-22 02:53] LABS: ALBUMIN 2.7 g/dL (3.5-5.0); ALKALINE PHOSPHATASE 75 U/L (38-126); ANION GAP 7 (5-19); ASPARTATE AMINO TRANSFERASE 57 U/L (17-59); BILIRUBIN,TOTAL 1.2 mg/dL (0.2-1.3); BLOOD UREA NITROGEN 37 mg/dL (7-20); CALCIUM 7.7 mg/dL (8.4-10.2); CARBON DIOXIDE 33 mmol/L (22-30); CHLORIDE 98 mmol/L (98-107); GLUCOSE 201 mg/dL (75-110); PHOSPHORUS 3.5 mg/dL (2.5-4.5); POTASSIUM 3.9 mmol/L (3.6-5.0)
[2019-11-22 03:00] LABS: PREALBUMIN 14.9 mg/dL (17.6-36.0)
[2019-11-22] MEDS: GABAPENTIN 300 MG CAPSULE NG SCH ×3 (06:43→23:16)
[2019-11-22 07:17] LABS: ARTERIAL BLOOD BASE EXCESS 4.6 mmol/L; ARTERIAL BLOOD H2CO3 1.39 mmol/L (1.05-1.35); ARTERIAL BLOOD HCO3 29.6 mmol/L (20-24); ARTERIAL BLOOD O2 SATURATION 99.5 % (94-98); ARTERIAL BLOOD PCO2 46.1 mmHg (35-45); ARTERIAL BLOOD PH 7.43 (7.35-7.45); ARTERIAL BLOOD PO2 219.5 mmHg (80-100); ARTERIAL BLOOD TOTAL CO2 31.1 mmol/L (23-27)
[2019-11-22 07:18] LABS: ARTERIAL BLOOD FIO2 60%
[2019-11-22] MEDS: BUDESONIDE NEB 0.25 MG/2 ML AMPUL NEB SCH ×2 (08:22→20:23)
--- NOTE | 2019-11-22 08:34 | RADIOLOGY REPORT (SQ) ---
EXAM DESCRIPTION: CHEST SINGLE VIEW IMAGES COMPLETED DATE/TIME: 11/22/2019 6:50 am REASON FOR STUDY: ETT tube COMPARISON: 11/21/2019. EXAM PARAMETERS: NUMBER OF VIEWS: One view. TECHNIQUE: Single frontal radiographic view of the chest acquired. RADIATION DOSE: NA LIMITATIONS: None. FINDINGS: LUNGS AND PLEURA: Diffuse alveolar and interstitial densities, right greater than left, wi th improved aeration. Small pleural effusions. MEDIASTINUM AND HILAR STRUCTURES: No masses. Contour normal. HEART AND VASCULAR STRUCTURES: Heart normal in size. Normal vasculature. BONES: No acute findings. HARDWARE: Stable endotracheal tube and nasogastric tube. OTHER: No other significant finding. IMPRESSION: IMPROVED AERATION. TECHNICAL DOCUMENTATION: JOB ID: [id number] 2010 [employer]- All Rights Reserved Reading location - IP/workstation name: [email or web address]
[2019-11-22] MEDS: VANCOMYCIN HCL 750 MG in DEXTROSE 5%-WATER 250 ML IV SCH (09:45)
[2019-11-22] MEDS: PANTOPRAZOLE SODIUM 40 MG VIAL IV SCH (09:45)
[2019-11-22] MEDS: SENNOSIDES/DOCUSATE 8.6-50 MG 1 EACH TABLET NG SCH ×2 (09:45→23:15)
[2019-11-22] MEDS: FLUTICASONE NASAL SPRAY 50 MCG/SPRY 120 SPRAY/16 GM NASL SCH (09:46)
[2019-11-22] MEDS: RIVAROXABAN 10 MG TABLET NG SCH (09:46)
[2019-11-22] MEDS: ASPIRIN 81 MG TABLET, CHEWABLE NG SCH (09:46)
[2019-11-22] MEDS: DOPAMINE HCL/DEXTROSE 5%-WATER 800 MG/250 ML RTUINJ IV PRN (11:26)
--- NOTE | 2019-11-22 20:52 | PDOC CRITICAL CARE PROG REPORT ---
General Date:: 11/22/19 ICU Day:: 2 - 2nd stay in ICU Ventilator Day:: 2 Hospital Day:: 15 Resuscitation Status: Full Code Medical Power of Field Spec: Events in the past 12 to 24 Hours:: This 74-year-old male was initially admitted on 11/07 after presenting to the emergency department with altered mental status (unresponsive). He was found to have hypoglycemia (glucose 40 mg/dL). He was intubated for altered mental status. He was successfully extubated on 11/10/2019 but has been intermittently confused with agitation/delirium, prompting Precedex infusion. 11/18: Precedex infusion was discontinued yesterday. Nursing staff reports that the patient was more alert and oriented yesterday than today. At the time of clinical interview today, the patient is awake. He is verbal but clearly confused. He is oriented only to self. Patient denies pain/discomfort. He denies shortness of breath. He is on supplemental oxygen at 5 LPM via nasal cannula. The nursing staff reports that he has been witnessed to have apneic episodes during sleep, associated with oxygen desaturation. He has not had a bowel movement during his hospitalization. He has had multiple enemas and even experienced rectal bleeding. But, no BM. 11/19: Mentation is much better today. On supplemental oxygen at 5 LPM via nasal cannula. Met with the patient's and daughter yesterday at the bedside, updated. 11/20: The patient transferred out to [facility] yesterday afternoon. He was seen by the hospitalist service and was noted to be clinically stable. However, early this morning, rapid response team was called to evaluate the patient who reportedly rapidly deteriorated to PEA arrest. ACLS protocol was initiated with ROSC achieved after "3 rounds of epinephrine". He was intubated post resus citation and was transferred back to the ICU. At the time of clinical interview, the patient is awake. He is following commands. He is thrashing about and makes deliberate attempts to extubate himself. He is on mechanical ventilatory support with an FiO2 of 80%. He is on dopamine infusion for blood pressure support. 11/21: Remains intubated. On PRVC mode, FiO2 60%. ABG this mornin.43/46 /220. Started on Zosyn/vancomycin for empiric coverage of aspiration pneumonia. Previously treated with cefepime/Zyvox for MRSA and Enterobacter cloacae pneumonia. Still on dopamine at 5 mcg/kg/min. Sedated with Precedex and fentanyl. Review of systems relevant to events:: Neuropsychiatric: Altered mental status/confusion Pulmonary: Acute toxemic and hypercapnic respiratory failure Cardiovascular: Status post PEA arrest Renal: Acute on chronic III/IV kidney disease Reason for ICU Addmission:: Hypoglycemic coma with need for mechanical ventilation, now extubated - Medications: Medications reviewed and adjusted accordingly: Yes Physical Exam Vital Signs: Temp Pulse Resp BP Pulse Ox 97.9 F 67 19 127/74 H 100 11/21/19 03:58 11/22/19 13:55 11/22/19 13:55 11/22/19 11:24 11/22/19 13:55 Intake & Output 11/21/19 11/22/19 11/23/19 06:59 06:59 06:59 Intake Total 1150 470 480 Output Total 2250 2275 675 Balance -1100 -1805 -195 Weight 94.1 kg 91.4 kg Weight/Height Weight 91.4 kg Height 1.8 m General appearance: PRESENT: no acute distress, obese, well-developed, well- nourished Head exam: PRESENT: atraumatic, normocephalic Eye exam: PRESENT: conjunctiva pink, EOMI, PERRLA. ABSENT: scleral icterus Mouth exam: PRESENT: moist, tongue midline Neck exam: ABSENT: carotid bruit, JVD, lymphadenopathy, thyromegaly Respiratory exam: PRESENT: crackles, unlabored, wheezes. ABSENT: rhonchi, tachypnea Cardiovascular exam: PRESENT: irregular rhythm. ABSENT: diastolic murmur, rubs, systolic murmur GI/Abdominal exam: PRESENT: normal bowel sounds, soft. ABSENT: distended, guarding, mass, organolmegaly, rebound, tenderness Extremities exam: PRESENT: full ROM. ABSENT: calf tenderness, clubbing, pedal edema Musculoskeletal exam: PRESENT: normal inspection. ABSENT: deformity Neurological exam: PRESENT: altered, CN II-XII grossly intact, motor sensory deficit Psychiatric exam: ABSENT: agitated, anxious Skin exam: PRESENT: dry, intact, warm. ABSENT: cyanosis, rash Tubes/Lines: PRESENT: Endotracheal Tube Laboratory/Radiographs Laboratory Results: 11/22/19 02:20 11/22/19 02:20 11/22/19 11/22/19 11/22/19 02:20 02:20 06:57 WBC 16.3 H RBC 3.70 L Hgb 11.1 L Hct 33.9 L MCV 91 MCH 30.1 MCHC 32.9 RDW 13.7 Plt Count 255 Seg Neutrophils % 75.7 Carbonic Acid 1.39 H HCO3/H2CO3 Ratio 21:1 ABG pH 7.43 ABG pCO2 46.1 H ABG pO2 219.5 H ABG HCO3 29.6 H ABG O2 Saturation 99.5 H ABG Base Excess 4.6 FiO2 60% Sodium 138.0 Potassium 3.9 Chloride 98 Carbon Dioxide 33 H Anion Gap 7 BUN 37 H Creatinine 2.67 H Est GFR ( Amer) 28 L Glucose 201 H Calcium 7.7 L Phosphorus 3.5 Magnesium 1.9 Total Bilirubin 1.2 AST 57 Alkaline Phosphatase 75 Total Protein 6.0 L Albumin 2.7 L Prealbumin 14.9 L 11/08/19 11/08/19 11/20/19 15:23 15:23 03:53 Creatine Kinase 200 H CK-MB (CK-2) Troponin I 0.093 NT-Pro-B Natriuret Pep 18419 H 11/21/19 11/21/19 11/21/19 06:57 08:20 08:20 Creatine Kinase 135 CK-MB (CK-2) 4.13 Troponin I 0.113 NT-Pro-B Natriuret Pep 92556 H 71105 H 11/22/19 02:20 Creatine Kinase CK-MB (CK-2) Troponin I NT-Pro-B Natriuret Pep 62610 H Impressions: Head CT 11/08/19 12:29 IMPRESSION: CHRONIC CHANGES OF ATROPHY AND MICROVASCULAR ISCHEMIA. NO ACUTE PROCESS. EVIDENCE OF ACUTE STROKE: NO. KUB X-Ray 11/21/19 00:00 IMPRESSION: Nasoenteric tube tip overlies gastric body. Chest X-Ray 11/22/19 05:00 IMPRESSION: IMPROVED AERATION. All labs, radiographs, diagnostic studies and EKGs were personally reviewed: Yes In addition, reports of radiographic and diagnostic studies were read: Yes Assessment and Plan - Diagnosis (1) Acute respiratory failure with hypoxia and hypercapnia Is this a current diagnosis for this admission?: Yes Plan: * Titrate ventilator settings based on ABG results. * Continue Precedex/fentanyl for sedation. * Once extubated, this patient should use NIPPV nightly. He has previously been advised to seek diagnostic polysomnography as an outpatient. But, he should also be evaluated prior to discharge home for chronic hypercapnic respiratory failure and possible need for home ventilator system. (2) Enterobacter cloacae pneumonia Is this a current diagnosis for this admission?: Yes Plan: Started treatment on cefepime. Antibiotics changed to Zosyn on 11/21/2019 for broadened coverage of aspiration pneumonia. (3) CKD (chronic kidney disease) Qualifiers: Chronic kidney disease stage: stage 4 (severe) Qualified Code(s): N18.4 - Chronic kidney disease, stage 4 (severe) Is this a current diagnosis for this admission?: Yes (4) Longstanding persistent atrial fibrillation Is this a current diagnosis for this admission?: Yes Plan: Continue Xarelto. Hold metoprolol while on dopamine. (5) UTI (urinary tract infection), bacterial Is this a current diagnosis for this admission?: Yes Plan: E. coli UTI treated. (6) Aspiration into lower respiratory tract Qualifiers: Encounter type: initial encounter Qualified Code(s): T17.800A - Unspecified foreign body in other parts of respiratory tract causing asphyxiation, initial encounter Is this a current diagnosis for this admission?: Yes (7) Hypoglycemic coma due to diabetes mellitus Is this a current diagnosis for this admission?: Yes (8) Acute metabolic encephalopathy Is this a current diagnosis for this admission?: Yes (9) Pneumonia of left upper lobe due to methicillin resistant Staphylococcus aureus (MRSA) Is this a current diagnosis for this admission?: Yes Plan: Treated with Zyvox Critical Time Critical Time (minutes): 60 Level of Care: ICU -: 1. The care of a critical patient is a dynamic process. This note is a chemical sales representative synopsis but static in nature. The timeframe for treatments given in order is not necessarily the actual time these treatments may have been done. 2. This patient requires critical care secondary to ongoing requirements for therapy not offered or safe outside the critical care environment. Transfer to a lower level of care will result in altered life or limb morbidity and mortality. 3. Multidisciplinary rounds completed. 4. ABCDE bundle addressed.
[2019-11-22] MEDS: ATORVASTATIN CALCIUM 40 MG TABLET NG SCH (23:16)
[2019-11-23] MEDS: INSULIN LISPRO 100 UNIT/ML 3 ML VIAL SUBCUT SCH ×4 (00:23→18:12)
[2019-11-23] MEDS: ALBUTEROL SULFATE 0.083% NEB 2.5 MG/3 ML AMPUL NEB SCH ×4 (02:00→21:01)
[2019-11-23] MEDS: FENTANYL CITRATE INJ/PF 100 MCG/2 ML AMPUL IV SCH ×6 (02:15→18:04)
[2019-11-23] MEDS: DEXMEDETOMIDINE IN 0.9 % NACL 400 MCG/100 ML RTUPB IV PRN (03:04)
[2019-11-23 04:02] LABS: ARTERIAL BLOOD BASE EXCESS 5.1 mmol/L; ARTERIAL BLOOD H2CO3 1.41 mmol/L (1.05-1.35); ARTERIAL BLOOD HCO3 30.2 mmol/L (20-24); ARTERIAL BLOOD O2 SATURATION 98.8 % (94-98); ARTERIAL BLOOD PCO2 46.9 mmHg (35-45); ARTERIAL BLOOD PH 7.43 (7.35-7.45); ARTERIAL BLOOD TOTAL CO2 31.7 mmol/L (23-27)
[2019-11-23 04:06] LABS: ARTERIAL BLOOD FIO2 50%
[2019-11-23 04:22] LABS: HEMATOCRIT 32.8 % (37.9-51.0); HEMOGLOBIN 10.7 g/dL (13.5-17.0); MEAN CORPUSCULAR HGB CONC 32.5 g/dL (32.0-36.0); MEAN CORPUSCULAR VOLUME 92 fl (80-97); PLATELET COUNT 256 10^3/uL (150-450); RED BLOOD COUNT 3.56 10^6/uL (4.35-5.55); RED CELL DISTRIBUTION WIDTH 13.4 % (11.5-14.0); WHITE BLOOD COUNT 19.7 10^3/uL (4.0-10.5)
[2019-11-23 04:39] LABS: ANION GAP 6 (5-19); BLOOD UREA NITROGEN 40 mg/dL (7-20); CALCIUM 7.6 mg/dL (8.4-10.2); CARBON DIOXIDE 31 mmol/L (22-30); CHLORIDE 100 mmol/L (98-107); GLUCOSE 179 mg/dL (75-110); PHOSPHORUS 4.3 mg/dL (2.5-4.5); POTASSIUM 4.3 mmol/L (3.6-5.0)
[2019-11-23 04:42] LABS: ABSOLUTE LYMPHOCYTES# (MANUAL) 1.4 10^3/uL (0.5-4.7); ABSOLUTE MONOCYTES # (MANUAL) 1.8 10^3/uL (0.1-1.4); BASOPHILS % (MANUAL) 0 % (0-2); EOSINOPHILS % (MANUAL) 7 % (0-6); LYMPHOCYTES % (MANUAL) 7 % (13-45); MONOCYTES % (MANUAL) 9 % (3-13); PLATELET COMMENT ADEQUATE; RBC MORPHOLOGY COMMENT NORMO-CYTIC/CHROMIC; SEGMENTED NEUTROPHILS % (MAN) 77 % (42-78); TOTAL CELLS COUNTED 100
[2019-11-23] MEDS ORDERED: IPRATROPIUM/ALBUTEROL 0.5-2.5 MG/3 ML AMPUL NEB PRN (05:56)
[2019-11-23] MEDS ORDERED: FUROSEMIDE INJ/PF 40 MG/4 ML SDV IV ONE (05:57)
--- NOTE | 2019-11-23 06:03 | Progress Note ---
Provider Note Provider Note: Patient self extubated around 0520. Patient mentating very well and tolerating 6 L NC. Due nebs and furusemide 40 mg IV given.
--- NOTE | 2019-11-23 08:33 | RADIOLOGY REPORT (SQ) ---
EXAM DESCRIPTION: CHEST SINGLE VIEW IMAGES COMPLETED DATE/TIME: 11/23/2019 6:25 am REASON FOR STUDY: ETT tube COMPARISON: AP view of the chest from 11/22/2019. EXAM PARAMETERS: NUMBER OF VIEWS: One view. TECHNIQUE: An AP view of the chest was obtained. RADIATION DOSE: NA LIMITATIONS: None. FINDINGS: LUNGS AND PLEURA: Unchanged diffuse bilateral interstitial opacities. The costophrenic sands lci remain blunted. There is no pneumothorax. MEDIASTINUM AND HILAR STRUCTURES: Stable mediastinal and hilar contours. HEART AND VASCULAR STRUCTURES: The cardiac silhouette and pulmonary vasculature are within normal welch its. BONES: No acute findings. HARDWARE: Status post extubation and removal of the enteric tube. OTHER: No other finding. IMPRESSION: Status post extubation and removal of the enteric tube. Otherwise unchanged radiographi c appearance of the chest. TECHNICAL DOCUMENTATION: JOB ID: [id number] 2010 [employer] All Rights Reserved Reading location - IP/workstation name: [email or web address]
[2019-11-23] MEDS: BUDESONIDE NEB 0.25 MG/2 ML AMPUL NEB SCH ×2 (08:49→21:01)
[2019-11-23 09:45] LABS: ARTERIAL BLOOD BASE EXCESS 3.4 mmol/L; ARTERIAL BLOOD H2CO3 0.65 mmol/L (1.05-1.35); ARTERIAL BLOOD O2 SATURATION 94.4 % (94-98); ARTERIAL BLOOD PCO2 21.5 mmHg (35-45); ARTERIAL BLOOD PO2 54.9 mmHg (80-100); ARTERIAL BLOOD TOTAL CO2 23.7 mmol/L (23-27)
[2019-11-23 09:46] LABS: ARTERIAL BLOOD FIO2 6L
[2019-11-23 09:47] LABS: ARTERIAL BLOOD PH 7.65 (7.35-7.45)
[2019-11-23] MEDS: ASPIRIN 81 MG TABLET, CHEWABLE NG SCH (11:45)
[2019-11-23] MEDS: GABAPENTIN 300 MG CAPSULE NG SCH ×4 (11:45→22:59)
[2019-11-23] MEDS: RIVAROXABAN 10 MG TABLET NG SCH (11:45)
[2019-11-23] MEDS: SENNOSIDES/DOCUSATE 8.6-50 MG 1 EACH TABLET NG SCH ×2 (11:45→18:04)
[2019-11-23] MEDS: VANCOMYCIN HCL 750 MG in DEXTROSE 5%-WATER 250 ML IV SCH (11:58)
[2019-11-23] MEDS: PANTOPRAZOLE SODIUM 40 MG VIAL IV SCH (11:58)
[2019-11-23] MEDS: PIPERACILLIN SODIUM/TAZOBACTAM 3.375 GM in NORMAL SALINE 100 ML IV SCH ×2 (15:39→18:10)
[2019-11-23] MEDS: FLUTICASONE NASAL SPRAY 50 MCG/SPRY 120 SPRAY/16 GM NASL SCH (15:40)
--- NOTE | 2019-11-23 20:48 | PDOC CRITICAL CARE PROG REPORT ---
General Date:: 11/23/19 ICU Day:: 3 - 2nd stay in ICU Hospital Day:: 16 Resuscitation Status: Full Code Medical Power of Chiller Hand: Events in the past 12 to 24 Hours:: This 74-year-old male was initially admitted on 11/07 after presenting to the emergency department with altered mental status (unresponsive). He was found to have hypoglycemia (glucose 40 mg/dL). He was intubated for altered mental status. He was successfully extubated on 11/10/2019 but has been intermittently confused with agitation/delirium, prompting Precedex infusion. 11/18: Precedex infusion was discontinued yesterday. Nursing staff reports that the patient was more alert and oriented yesterday than today. At the time of clinical interview today, the patient is awake. He is verbal but clearly confused. He is oriented only to self. Patient denies pain/discomfort. He denies shortness of breath. He is on supplemental oxygen at 5 LPM via nasal cannula. The nursing staff reports that he has been witnessed to have apneic episodes during sleep, associated with oxygen desaturation. He has not had a bowel movement during his hospitalization. He has had multiple enemas and even experienced rectal bleeding. But, no BM. 11/19: Mentation is much better today. On supplemental oxygen at 5 LPM via nasal cannula. Met with the patient's and daughter yesterday at the bedside, updated. 11/20: The patient transferred out to [facility] yesterday afternoon. He was seen by the hospitalist service and was noted to be clinically stable. However, early this morning, rapid response team was called to evaluate the patient who reportedly rapidly deteriorated to PEA arrest. ACLS protocol was initiated with ROSC achieved after "3 rounds of epinephrine". He was intubated post resuscitation and was transferred back to the ICU. At the time of clinical interview, the patient is awake. He is following commands. He is thrashing about and makes deliberate attempts to extubate himself. He is on mechanical ventilatory support with an FiO2 of 80%. He is on dopamine infusion for blood pressure support. 11/21: Remains intubated. On PRVC mode, FiO2 60%. ABG this mornin.43/46/220. Started on Zosyn/vancomycin for empiric coverage of aspiration pneumonia. Previously treated with cefepime/Zyvox for MRSA and Enterobacter cloacae pneumonia. Still on dopamine at 5 mcg/kg/min. Sedated with Precedex and fentanyl. 11/22: Self extubated earlier this morning. On 5 LPM via nasal cannula. WBC 16 .3-->19.7. On Zosyn/vancomycin for empiric coverage of aspiration pneumonia. Still on dopamine at 1.5 mcg/kg/min. proBNP 11,700>5320. Awake, alert, follows commands. Seems a bit confused but does verbalize responses. Review of systems relevant to events:: Neuropsychiatric: Altered mental status/confusion Pulmonary: Acute toxemic and hypercapnic respiratory failure Cardiovascular: Status post PEA arrest Renal: Acute on chronic III/IV kidney disease Reason for ICU Addmission:: Hypoglycemic coma with need for mechanical ventilation, now extubated - Medications: Medications reviewed and adjusted accordingly: Yes Physical Exam Vital Signs: Temp Pulse Resp BP Pulse Ox 97.9 F 94 21 H 132/62 H 91 L 11/21/19 03:58 11/23/19 13:39 11/23/19 14:15 11/23/19 14:12 11/23/19 14:15 Intake & Output 11/22/19 11/23/19 11/24/19 06:59 06:59 06:59 Intake Total 470 804 250 Output Total 2272 2145 1050 Balance -1805 -1341 -800 Weight 91.4 kg 92.2 kg Weight/Height Weight 92.2 kg Height 1.8 m General appearance: PRESENT: no acute distress, obese, well-developed, well- nourished Head exam: PRESENT: atraumatic, normocephalic Mouth exam: PRESENT: moist, tongue midline Neck exam: ABSENT: carotid bruit, JVD, lymphadenopathy, thyromegaly Respiratory exam: PRESENT: crackles, unlabored, wheezes Cardiovascular exam: PRESENT: irregular rhythm. ABSENT: diastolic murmur, rubs, systolic murmur Pulses: PRESENT: normal dorsalis pedis pul GI/Abdominal exam: PRESENT: normal bowel sounds, soft. ABSENT: distended, guarding, mass, organolmegaly, rebound, tenderness Gentrourinary exam: PRESENT: indwelling catheter Extremities exam: PRESENT: full ROM, pedal edema. ABSENT: calf tenderness, clubbing Neurological exam: PRESENT: alert, awake, oriented to person, reflexes normal, CN II-XII grossly intact. ABSENT: motor sensory deficit Psychiatric exam: PRESENT: flat affect. ABSENT: agitated, anxious Skin exam: PRESENT: dry, intact, warm. ABSENT: cyanosis, rash Laboratory/Radiographs Laboratory Results: 11/23/19 03:50 11/23/19 03:50 11/23/19 11/23/19 11/23/19 03:45 03:50 03:50 WBC 19.7 H RBC 3.56 L Hgb 10.7 L Hct 32.8 L MCV 92 MCH 30.0 MCHC 32.5 RDW 13.4 Plt Count 256 Seg Neutrophils % Not Reportable Carbonic Acid 1.41 H HCO3/H2CO3 Ratio 21:1 ABG pH 7.43 ABG pCO2 46.9 H ABG pO2 141.0 H ABG HCO3 30.2 H ABG O2 Saturation 98.8 H ABG Base Excess 5.1 FiO2 50% Sodium 136.6 L Potassium 4.3 Chloride 100 Carbon Dioxide 31 H Anion Gap 6 BUN 40 H Creatinine 2.57 H Est GFR ( Amer) 30 L Glucose 179 H Calcium 7.6 L Phosphorus 4.3 Magnesium 1.9 11/23/19 09:36 WBC RBC Hgb Hct MCV MCH MCHC RDW Plt Count Seg Neutrophils % Carbonic Acid 0.65 L HCO3/H2CO3 Ratio 35:1 ABG pH 7.65 H* ABG pCO2 21.5 L ABG pO2 54.9 L ABG HCO3 23.0 ABG O2 Saturation 94.4 ABG Base Excess 3.4 FiO2 6L Sodium Potassium Chloride Carbon Dioxide Anion Gap BUN Creatinine Est GFR ( Amer) Glucose Calcium Phosphorus Magnesium 11/21/19 15:00 Catheterized Urine Urine Culture - Final NO GROWTH 2 DAYS 11/08/19 11/08/19 11/20/19 15:23 15:23 03:53 Creatine Kinase 200 H CK-MB (CK-2) Troponin I 0.093 NT-Pro-B Natriuret Pep 39023 H 11/21/19 11/21/19 11/21/19 06:57 08:20 08:20 Creatine Kinase 135 CK-MB (CK-2) 4.13 Troponin I 0.113 NT-Pro-B Natriuret Pep 43697 H 45881 H 08/11/20 08/12/20 02:20 03:50 Creatine Kinase CK-MB (CK-2) Troponin I NT-Pro-B Natriuret Pep 86967 H 5320 H Impressions: Head CT 11/08/19 12:29 IMPRESSION: CHRONIC CHANGES OF ATROPHY AND MICROVASCULAR ISCHEMIA. NO ACUTE PROCESS. EVIDENCE OF ACUTE STROKE: NO. KUB X-Ray 11/21/19 00:00 IMPRESSION: Nasoenteric tube tip overlies gastric body. Chest X-Ray 11/23/19 05:00 IMPRESSION: Status post extubation and removal of the enteric tube. Otherwise unchanged radiographic appearance of the chest. All labs, radiographs, diagnostic studies and EKGs were personally reviewed: Yes In addition, reports of radiographic and diagnostic studies were read: Yes Assessment and Plan - Diagnosis (1) Acute respiratory failure with hypoxia and hypercapnia Is this a current diagnosis for this admission?: Yes Plan: * CPAP 8 nightly. Titrate FiO2 to keep SPO2 90-94 %. * Trach aspirate (11/22) shows gram-negative rods (rare). On empiric Zosyn/vancomycin. Stop vancomycin tomorrow in the absence of a compelling indication for use. * Once extubated, this patient should use NIPPV nightly. He has previously been advised to seek diagnostic polysomnography as an outpatient. But, he should also be evaluated prior to discharge home for chronic hypercapnic respiratory failure and possible need for home ventilator system. (2) Enterobacter cloacae pneumonia Is this a current diagnosis for this admission?: Yes Plan: Started treatment on cefepime. Antibiotics changed to Zosyn on 11/21/2019 for broadened coverage of aspiration pneumonia. (3) Longstanding persistent atrial fibrillation Is this a current diagnosis for this admission?: Yes Plan: Continue Xarelto. Hold metoprolol while on dopamine. (4) CKD (chronic kidney disease) Qualifiers: Chronic kidney disease stage: stage 4 (severe) Qualified Code(s): N18.4 - Chronic kidney disease, stage 4 (severe) Is this a current diagnosis for this admission?: Yes (5) UTI (urinary tract infection), bacterial Is this a current diagnosis for this admission?: Yes (6) Aspiration into lower respiratory tract Qualifiers: Encounter type: initial encounter Qualified Code(s): T17.800A - Unspecified foreign body in other parts of respiratory tract causing asphyxiation, initial encounter Is this a current diagnosis for this admission?: Yes (7) Hypoglycemic coma due to diabetes mellitus Is this a current diagnosis for this admission?: Yes (8) Acute metabolic encephalopathy Is this a current diagnosis for this admission?: Yes (9) Pneumonia of left upper lobe due to methicillin resistant Staphylococcus aureus (MRSA) Is this a current diagnosis for this admission?: Yes Plan: Treated with Zyvox Critical Time Critical Time (minutes): 60 Level of Care: ICU -: 1. The care of a critical patient is a dynamic process. This note is a tax compliance representative synopsis but static in nature. The timeframe for treatments given in order is not necessarily the actual time these treatments may have been done. 2. This patient requires critical care secondary to ongoing requirements for therapy not offered or safe outside the critical care environment. Transfer to a lower level of care will result in altered life or limb morbidity and mortality. 3. Multidisciplinary rounds completed. 4. ABCDE bundle addressed.
[2019-11-23] MEDS ORDERED: FENTANYL CITRATE INJ/PF 100 MCG/2 ML AMPUL IV ONE (22:00)
[2019-11-23] MEDS: ATORVASTATIN CALCIUM 40 MG TABLET NG SCH (22:59)
[2019-11-23] MEDS: MAGNESIUM SULFATE/D5W 1 GM/100 ML RTUPB IV SCH (23:05)
[2019-11-23 23:32] LABS: ARTERIAL BLOOD BASE EXCESS 3.8 mmol/L; ARTERIAL BLOOD FIO2 40%; ARTERIAL BLOOD H2CO3 0.89 mmol/L (1.05-1.35); ARTERIAL BLOOD HCO3 25.4 mmol/L (20-24); ARTERIAL BLOOD O2 SATURATION 96.3 % (94-98); ARTERIAL BLOOD PCO2 29.7 mmHg (35-45); ARTERIAL BLOOD PH 7.55 (7.35-7.45); ARTERIAL BLOOD PO2 71.6 mmHg (80-100); ARTERIAL BLOOD TOTAL CO2 26.3 mmol/L (23-27)
[2019-11-24] MEDS: INSULIN LISPRO 100 UNIT/ML 3 ML VIAL SUBCUT SCH ×5 (00:40→23:43)
[2019-11-24] MEDS: PIPERACILLIN SODIUM/TAZOBACTAM 3.375 GM in NORMAL SALINE 100 ML IV SCH ×5 (00:40→23:43)
[2019-11-24] MEDS: MAGNESIUM SULFATE/D5W 1 GM/100 ML RTUPB IV SCH (00:41)
[2019-11-24] MEDS: ALBUTEROL SULFATE 0.083% NEB 2.5 MG/3 ML AMPUL NEB SCH ×4 (02:20→19:36)
[2019-11-24 04:28] LABS: ABSOLUTE BASOPHILS # (AUTO) 0.1 10^3/uL (0.0-0.2); ABSOLUTE EOSINOPHILS # (AUTO) 0.2 10^3/uL (0.0-0.6); ABSOLUTE MONOCYTES (AUTO) 1.4 10^3/uL (0.1-1.4); ABSOLUTE NEUT (AUTO) 12.6 10^3/uL (1.7-8.2); BASOPHILS % (AUTO) 0.4 % (0-2); EOSINOPHILS % (AUTO) 1.1 % (0-6); HEMATOCRIT 32.6 % (37.9-51.0); HEMOGLOBIN 10.7 g/dL (13.5-17.0); LYMPHOCYTES % (AUTO) 6.4 % (13-45); MEAN CORPUSCULAR HEMOGLOBIN 29.9 pg (27.0-33.4); MEAN CORPUSCULAR HGB CONC 32.9 g/dL (32.0-36.0); MEAN CORPUSCULAR VOLUME 91 fl (80-97); MONOCYTES % (AUTO) 9.3 % (3-13); PLATELET COUNT 274 10^3/uL (150-450); RED BLOOD COUNT 3.59 10^6/uL (4.35-5.55); RED CELL DISTRIBUTION WIDTH 13.4 % (11.5-14.0); SEGMENTED NEUTROPHILS % (AUTO) 82.8 % (42-78); TOTAL CELLS COUNTED % (AUTO) 100 %; WHITE BLOOD COUNT 15.2 10^3/uL (4.0-10.5)
[2019-11-24 04:51] LABS: ANION GAP 8 (5-19); BLOOD UREA NITROGEN 45 mg/dL (7-20); CALCIUM 7.9 mg/dL (8.4-10.2); CARBON DIOXIDE 30 mmol/L (22-30); CHLORIDE 100 mmol/L (98-107); GLUCOSE 184 mg/dL (75-110); PHOSPHORUS 2.9 mg/dL (2.5-4.5); POTASSIUM 3.6 mmol/L (3.6-5.0)
[2019-11-24] MEDS: GABAPENTIN 300 MG CAPSULE NG SCH ×3 (05:37→21:37)
[2019-11-24] MEDS: BUDESONIDE NEB 0.25 MG/2 ML AMPUL NEB SCH ×2 (08:32→19:36)
--- NOTE | 2019-11-24 09:44 | RADIOLOGY REPORT (SQ) ---
EXAM DESCRIPTION: CHEST SINGLE VIEW IMAGES COMPLETED DATE/TIME: 11/24/2019 6:00 am REASON FOR STUDY: ETT tube COMPARISON: 11/23/2019 NUMBER OF VIEWS: One view. TECHNIQUE: Single frontal radiographic image of the chest acquired. LIMITATIONS: None. FINDINGS: LUNGS AND PLEURA: Stable appearance. MEDIASTINUM AND HEART: Stable heart size and mediastinal structures. BONY STRUCTURES: No acute findings. HARDWARE: None. OTHER: No other significant finding. IMPRESSION: STABLE APPEARANCE OF THE CHEST. TECHNICAL DOCUMENTATION: JOB ID: [id number] Reading location - IP/workstation name: [email or web address]
[2019-11-24] MEDS: RIVAROXABAN 10 MG TABLET NG SCH (10:55)
[2019-11-24] MEDS: PANTOPRAZOLE SODIUM 40 MG VIAL IV SCH (10:55)
[2019-11-24] MEDS: FLUTICASONE NASAL SPRAY 50 MCG/SPRY 120 SPRAY/16 GM NASL SCH (11:47)
[2019-11-24] MEDS: SENNOSIDES/DOCUSATE 8.6-50 MG 1 EACH TABLET NG SCH ×3 (11:50→18:51)
[2019-11-24] MEDS: ASPIRIN 81 MG TABLET, CHEWABLE NG SCH (11:50)
[2019-11-24 12:51] LABS: VANCOMYCIN,TROUGH 10.1 ug/mL (5.0-20.0)
[2019-11-24] MEDS ORDERED: POTASSIUM CHLORIDE 20 MEQ PACKET PO ONE (13:00)
[2019-11-24] MEDS ORDERED: FUROSEMIDE INJ/PF 40 MG/4 ML SDV IV ONE (13:00)
[2019-11-24] MEDS ORDERED: DOXYCYCLINE HYCLATE 100 MG TABLET PO SCH (13:00)
[2019-11-24] MEDS: VANCOMYCIN HCL 750 MG in DEXTROSE 5%-WATER 250 ML IV SCH (13:51)
--- NOTE | 2019-11-24 17:50 | PDOC CRITICAL CARE PROG REPORT ---
General Date:: 11/24/19 ICU Day:: 4 - 2nd ICU stay Hospital Day:: 17 Resuscitation Status: Full Code Medical Power of Outreach Nurse: Events in the past 12 to 24 Hours:: This 74-year-old male was initially admitted on 11/07 after presenting to the emergency department with altered mental status (unresponsive). He was found to have hypoglycemia (glucose 40 mg/dL). He was intubated for altered mental status. He was successfully extubated on 11/10/2019 but has been intermittently confused with agitation/delirium, prompting Precedex infusion. 11/18: Precedex infusion was discontinued yesterday. Nursing staff reports that the patient was more alert and oriented yesterday than today. At the time of clinical interview today, the patient is awake. He is verbal but clearly confused. He is oriented only to self. Patient denies pain/discomfort. He denies shortness of breath. He is on supplemental oxygen at 5 LPM via nasal cannula. The nursing staff reports that he has been witnessed to have apneic ep isodes during sleep, associated with oxygen desaturation. He has not had a bowel movement during his hospitalization. He has had multiple enemas and even experienced rectal bleeding. But, no BM. 11/19: Mentation is much better today. On supplemental oxygen at 5 LPM via nasal cannula. Met with the patient's and daughter yesterday at the bedside, updated. 11/20: The patient transferred out to [facility] yesterday afternoon. He was seen by the hospitalist service and was noted to be clinically stable. However, early this morning, rapid response team was called to evaluate the patient who rep ortedly rapidly deteriorated to PEA arrest. ACLS protocol was initiated with ROSC achieved after "3 rounds of epinephrine". He was intubated post resuscitation and was transferred back to the ICU. At the time of clinical interview, the patient is awake. He is following commands. He is thrashing about and makes deliberate attempts to extubate himself. He is on mechanical ventilatory support with an FiO2 of 80%. He is on dopamine infusion for blood pressure support. 11/21: Remains intubated. On PRVC mode, FiO2 60%. ABG this mornin.43/46/220. Started on Zosyn/vancomycin for empiric coverage of aspiration pneumonia. Previously treated with cefepime/Zyvox for MRSA and Enterobacter cloacae pneumonia. Still on dopamine at 5 mcg/kg/min. Sedated with Precedex and fentanyl. 11/22: Self extubated earlier this morning. On 5 LPM via nasal cannula. WBC 16.3-->19.7. On Zosyn/vancomycin for empiric coverage of aspiration pneumonia. Still on dopamine at 1.5 mcg/kg/min. proBNP 11,700>5320. Awake, alert, follows commands. Seems a bit confused but does verbalize responses. 11/23: Remains extubated. Patient improving. Verbal, conversant. Swallows his pills without difficulty. David VC [phone]. On Zosyn/vancomycin for empiric coverage of aspiration pneumonia. Off dopamine. Monitor shows sinus rhythm with PACs. SBP 160s. Trach aspirate (11/21) isolated Enterobacter cloacae, sensitive to Zosyn but resistant to ampicillin and Unasyn. Review of systems relevant to events:: Neuropsychiatric: Altered mental status/confusion Pulmonary: Acute toxemic and hypercapnic respiratory failure Cardiovascular: Status post PEA arrest Renal: Acute on chronic III/IV kidney disease Reason for ICU Addmission:: need for mechanical ventilation, now extubated - Medications: Medications reviewed and adjusted accordingly: Yes Physical Exam Vital Signs: Temp Pulse Resp BP Pulse Ox 97.9 F 77 17 160/85 H 98 11/21/19 03:58 11/24/19 08:32 11/24/19 12:00 11/24/19 11:56 11/24/19 12:00 Intake & Output 11/23/19 11/24/19 11/25/19 06:59 06:59 06:59 Intake Total 804 845 20 Output Total 8267 0800 965 Balance -1341 -1515 -149 Weight 92.2 kg 91.2 kg Weight/Height Weight 91.2 kg Height 1.8 m General appearance: PRESENT: no acute distress, obese, well-developed, well- nourished Head exam: PRESENT: atraumatic, normocephalic Eye exam: PRESENT: conjunctiva pink, EOMI, PERRLA. ABSENT: scleral icterus Mouth exam: PRESENT: moist, tongue midline Neck exam: ABSENT: carotid bruit, JVD, lymphadenopathy, thyromegaly Respiratory exam: PRESENT: crackles, decreased breath sounds, rhonchi, unlabored Cardiovascular exam: PRESENT: irregular rhythm. ABSENT: diastolic murmur, rubs, systolic murmur Pulses: PRESENT: normal dorsalis pedis pul GI/Abdominal exam: PRESENT: normal bowel sounds, soft. ABSENT: distended, guarding, mass, organolmegaly, rebound, tenderness Extremities exam: PRESENT: full ROM. ABSENT: calf tenderness, clubbing, pedal edema Musculoskeletal exam: PRESENT: normal inspection. ABSENT: deformity Neurological exam: PRESENT: alert, awake, CN II-XII grossly intact. ABSENT: motor sensory deficit Psychiatric exam: ABSENT: agitated, anxious Skin exam: PRESENT: dry, intact, warm. ABSENT: cyanosis, rash Laboratory/Radiographs Laboratory Results: 11/24/19 04:06 11/23/19 11/24/19 11/24/19 23:25 04:06 04:06 WBC 15.2 H RBC 3.59 L Hgb 10.7 L Hct 32.6 L MCV 91 MCH 29.9 MCHC 32.9 RDW 13.4 Plt Count 274 Seg Neutrophils % 82.8 H Carbonic Acid 0.89 L HCO3/H2CO3 Ratio 28:1 ABG pH 7.55 H ABG pCO2 29.7 L ABG pO2 71.6 L ABG HCO3 25.4 H ABG O2 Saturation 96.3 ABG Base Excess 3.8 FiO2 40% Sodium 137.6 Potassium 3.6 Chloride 100 Carbon Dioxide 30 Anion Gap 8 BUN 45 H Creatinine 2.70 H Est GFR ( Amer) 28 L Glucose 184 H Calcium 7.9 L Phosphorus 2.9 Magnesium 2.4 H 11/22/19 03:20 Tracheal Aspirate Gram Stain - Final 11/22/19 03:20 Tracheal Aspirate Sputum Culture - Final Enterobacter Cloacae C.albicans/C.dubliniensis Normal Maryann Absent 11/21/19 15:00 Catheterized Urine Urine Culture - Final NO GROWTH 2 DAYS 11/08/19 11/08/19 11/20/19 15:23 15:23 03:53 Creatine Kinase 200 H CK-MB (CK-2) Troponin I 0.093 NT-Pro-B Natriuret Pep 79809 H 11/21/19 11/21/19 11/21/19 06:57 08:20 08:20 Creatine Kinase 135 CK-MB (CK-2) 4.13 Troponin I 0.113 NT-Pro-B Natriuret Pep 85106 H 09699 H 11/22/19 11/23/19 11/24/19 02:20 03:50 04:06 Creatine Kinase CK-MB (CK-2) Troponin I NT-Pro-B Natriuret Pep 08504 H 5320 H 8390 H Impressions: Head CT 11/08/19 12:29 IMPRESSION: CHRONIC CHANGES OF ATROPHY AND MICROVASCULAR ISCHEMIA. NO ACUTE PROCESS. EVIDENCE OF ACUTE STROKE: NO. KUB X-Ray 11/21/19 00:00 IMPRESSION: Nasoenteric tube tip overlies gastric body. Chest X-Ray 11/24/19 05:00 IMPRESSION: STABLE APPEARANCE OF THE CHEST. All labs, radiographs, diagnostic studies and EKGs were personally reviewed: Yes In addition, reports of radiographic and diagnostic studies were read: Yes Assessment and Plan - Diagnosis (1) Acute respiratory failure with hypoxia and hypercapnia Is this a current diagnosis for this admission?: Yes Plan: * CPAP 8 nightly. Titrate FiO2 to keep SPO2 90-94 %. * Furosemide 40 mg IV single dose today. * Trach aspirate (11/21, previously incorrectly documented 11/22) isolated Enterobacter cloacae. On empiric Zosyn/vancomycin. Stop vancomycin. Add doxycycline. If WBC count continues to trend downward tomorrow, stop Zosyn and finish treatment course with doxycycline. * Once extubated, this patient should use NIPPV nightly. He has previously been advised to seek diagnostic polysomnography as an outpatient. But, he should also be evaluated prior to discharge home for chronic hypercapnic respiratory failure and possible need for home ventilator system. (2) Acute metabolic encephalopathy Is this a current diagnosis for this admission?: Yes Plan: Mentation improving (3) Enterobacter cloacae pneumonia Is this a current diagnosis for this admission?: Yes Plan: Started treatment on cefepime. Antibiotics changed to Zosyn on 11/21/2019 for broadened coverage of aspiration pneumonia. We will add doxycycline today, in hopes of discontinuing Zosyn. (4) Longstanding persistent atrial fibrillation Is this a current diagnosis for this admission?: Yes (5) CKD (chronic kidney disease) Qualifiers: Chronic kidney disease stage: stage 4 (severe) Qualified Code(s): N18.4 - Chronic kidney disease, stage 4 (severe) Is this a current diagnosis for this admission?: Yes (6) UTI (urinary tract infection), bacterial Is this a current diagnosis for this admission?: Yes (7) Aspiration into lower respiratory tract Qualifiers: Encounter type: initial encounter Qualified Code(s): T17.800A - Unspecified foreign body in other parts of respiratory tract causing asphyxiation, initial encounter Is this a current diagnosis for this admission?: Yes (8) Hypoglycemic coma due to diabetes mellitus Is this a current diagnosis for this admission?: Yes (9) Pneumonia of left upper lobe due to methicillin resistant Staphylococcus aureus (MRSA) Is this a current diagnosis for this admission?: Yes Critical Time Critical Time (minutes): 60 Level of Care: ICU -: 1. The care of a critical patient is a dynamic process. This note is a apprenticeship training representative synopsis but static in nature. The timeframe for treatments given in order is not necessarily the actual time these treatments may have been done. 2. This patient requires critical care secondary to ongoing requirements for therapy not offered or safe outside the critical care environment. Transfer to a lower level of care will result in altered life or limb morbidity and mortality. 3. Multidisciplinary rounds completed. 4. ABCDE bundle addressed.
[2019-11-24] MEDS: POTASSI CL 20 MEQ/50 ML RIDER 20 MEQ/50 ML RTUPB IV SCH ×2 (20:00→21:50)
[2019-11-24] MEDS: ATORVASTATIN CALCIUM 40 MG TABLET NG SCH (21:37)
[2019-11-24] MEDS ORDERED: DOXYCYCLINE HYCLATE 100 MG in DEXTROSE 5%-WATER 250 ML IV SCH (22:00)
[2019-11-25] MEDS: ALBUTEROL SULFATE 0.083% NEB 2.5 MG/3 ML AMPUL NEB SCH ×4 (01:53→19:47)
[2019-11-25] MEDS: INSULIN LISPRO 100 UNIT/ML 3 ML VIAL SUBCUT SCH ×4 (06:06→23:46)
[2019-11-25] MEDS: PIPERACILLIN SODIUM/TAZOBACTAM 3.375 GM in NORMAL SALINE 100 ML IV SCH ×4 (06:06→23:46)
[2019-11-25] MEDS: GABAPENTIN 300 MG CAPSULE NG SCH ×3 (06:06→21:54)
[2019-11-25 06:56] LABS: HEMATOCRIT 34.1 % (37.9-51.0); HEMOGLOBIN 11.4 g/dL (13.5-17.0); MEAN CORPUSCULAR HEMOGLOBIN 30.6 pg (27.0-33.4); MEAN CORPUSCULAR HGB CONC 33.3 g/dL (32.0-36.0); MEAN CORPUSCULAR VOLUME 92 fl (80-97); PLATELET COUNT 314 10^3/uL (150-450); RED BLOOD COUNT 3.71 10^6/uL (4.35-5.55); RED CELL DISTRIBUTION WIDTH 14.1 % (11.5-14.0); WHITE BLOOD COUNT 15.2 10^3/uL (4.0-10.5)
[2019-11-25 07:11] LABS: ANION GAP 7 (5-19); BLOOD UREA NITROGEN 43 mg/dL (7-20); CARBON DIOXIDE 30 mmol/L (22-30); CHLORIDE 102 mmol/L (98-107); GLUCOSE 179 mg/dL (75-110); POTASSIUM 4.5 mmol/L (3.6-5.0)
[2019-11-25 07:21] LABS: ABSOLUTE LYMPHOCYTES# (MANUAL) 0.6 10^3/uL (0.5-4.7); ABSOLUTE MONOCYTES # (MANUAL) 1.1 10^3/uL (0.1-1.4); ANISOCYTOSIS SLIGHT; BASOPHILS % (MANUAL) 0 % (0-2); EOSINOPHILS % (MANUAL) 0 % (0-6); LYMPHOCYTES % (MANUAL) 4 % (13-45); MONOCYTES % (MANUAL) 7 % (3-13); SEGMENTED NEUTROPHILS % (MAN) 89 % (42-78); TOTAL CELLS COUNTED 100
[2019-11-25 07:26] LABS: PLATELET COMMENT ADEQUATE
[2019-11-25] MEDS: BUDESONIDE NEB 0.25 MG/2 ML AMPUL NEB SCH ×2 (08:29→19:47)
[2019-11-25] MEDS: ASPIRIN 81 MG TABLET, CHEWABLE NG SCH (10:15)
[2019-11-25] MEDS: FLUTICASONE NASAL SPRAY 50 MCG/SPRY 120 SPRAY/16 GM NASL SCH (10:16)
[2019-11-25] MEDS: PANTOPRAZOLE SODIUM 40 MG VIAL IV SCH (12:11)
[2019-11-25] MEDS: SENNOSIDES/DOCUSATE 8.6-50 MG 1 EACH TABLET NG SCH ×2 (12:11→18:26)
[2019-11-25] MEDS: RIVAROXABAN 10 MG TABLET NG SCH (12:11)
[2019-11-25] MEDS: FUROSEMIDE INJ/PF 20 MG/2 ML SDV IV SCH (18:24)
--- NOTE | 2019-11-25 18:46 | PDOC CRITICAL CARE PROG REPORT ---
General Date:: 11/25/19 ICU Day:: 5 - 2nd ICU stay Hospital Day:: 18 Resuscitation Status: Full Code Medical Power of Pumper Gauger Apprentice: Events in the past 12 to 24 Hours:: This 74-year-old male was initially admitted on 11/07 after presenting to the emergency department with altered mental status (unresponsive). He was found to have hypoglycemia (glucose 40 mg/dL). He was intubated for altered mental status. He was successfully extubated on 11/10/2019 but has been intermittently confused with agitation/delirium, prompting Precedex infusion. 11/18: Precedex infusion was discontinued yesterday. Nursing staff reports that the patient was more alert and oriented yesterday than today. At the time of clinical interview today, the patient is awake. He is verbal but clearly confused. He is oriented only to self. Patient denies pain/discomfort. He denies shortness of breath. He is on supplemental oxygen at 5 LPM via nasal cannula. The nursing staff reports that he has been witnessed to have apneic ep isodes during sleep, associated with oxygen desaturation. He has not had a bowel movement during his hospitalization. He has had multiple enemas and even experienced rectal bleeding. But, no BM. 11/19: Mentation is much better today. On supplemental oxygen at 5 LPM via nasal cannula. Met with the patient's and daughter yesterday at the bedside, updated. 11/20: The patient transferred out to [facility] yesterday afternoon. He was seen by the hospitalist service and was noted to be clinically stable. However, early this morning, rapid response team was called to evaluate the patient who rep ortedly rapidly deteriorated to PEA arrest. ACLS protocol was initiated with ROSC achieved after "3 rounds of epinephrine". He was intubated post resuscitation and was transferred back to the ICU. At the time of clinical interview, the patient is awake. He is following commands. He is thrashing about and makes deliberate attempts to extubate himself. He is on mechanical ventilatory support with an FiO2 of 80%. He is on dopamine infusion for blood pressure support. 11/21: Remains intubated. On PRVC mode, FiO2 60%. ABG this mornin.43/46/220. Started on Zosyn/vancomycin for empiric coverage of aspiration pneumonia. Previously treated with cefepime/Zyvox for MRSA and Enterobacter cloacae pneumonia. Still on dopamine at 5 mcg/kg/min. Sedated with Precedex and fentanyl. 11/22: Self extubated earlier this morning. On 5 LPM via nasal cannula. WBC 16.3-->19.7. On Zosyn/vancomycin for empiric coverage of aspiration pneumonia. Still on dopamine at 1.5 mcg/kg/min. proBNP 11,700>5320. Awake, alert, follows commands. Seems a bit confused but does verbalize responses. 11/23: Remains extubated. Patient improving. Verbal, conversant. Swallows his pills without difficulty. WBC 19.715.2. On Zosyn/vancomycin for empiric coverage of aspiration pneumonia. Off dopamine. Monitor shows sinus rhythm with PACs. SBP 160s. Trach aspirate (11/21) isolated Enterobacter cloacae, sensitive to Zosyn but resistant to ampicillin and Unasyn. 11/24: Remains extubated. Slept with CPAP last night. Mentating well. Weak voice. Modest effort on incentive spirometry. On Zosyn for E cloacae pneumonia. Hemodynamically stable. Review of systems relevant to events:: Neuropsychiatric: Altered mental status/confusion Pulmonary: Acute toxemic and hypercapnic respiratory failure Cardiovascular: Status post PEA arrest Renal: Acute on chronic III/IV kidney disease Reason for ICU Addmission:: need for mechanical ventilation, now extubated - Medications: Medications reviewed and adjusted accordingly: Yes Physical Exam Vital Signs: Temp Pulse Resp BP Pulse Ox 97.9 F 85 14 162/71 H 100 11/24/19 18:00 11/25/19 13:35 11/25/19 13:35 11/25/19 10:11 11/25/19 13:35 Intake & Output 11/24/19 11/25/19 11/26/19 06:59 06:59 06:59 Intake Total 845 666 100 Output Total 2360 3653 550 Balance -6952 -6786 -627 Weight 91.2 kg 89.3 kg Weight/Height Weight 89.3 kg Height 1.8 m General appearance: PRESENT: no acute distress, well-developed, well-nourished Head exam: PRESENT: atraumatic, normocephalic Eye exam: PRESENT: conjunctiva pink, EOMI, PERRLA. ABSENT: scleral icterus Mouth exam: PRESENT: moist, tongue midline Neck exam: ABSENT: carotid bruit, JVD, lymphadenopathy, thyromegaly Respiratory exam: PRESENT: clear to auscultation reese, decreased breath sounds. ABSENT: rales, rhonchi, wheezes Cardiovascular exam: PRESENT: RRR. ABSENT: diastolic murmur, rubs, systolic murmur Pulses: PRESENT: normal dorsalis pedis pul GI/Abdominal exam: PRESENT: normal bowel sounds, soft. ABSENT: distended, guarding, mass, organolmegaly, rebound, tenderness Extremities exam: PRESENT: pedal edema, +1 edema. ABSENT: calf tenderness Neurological exam: PRESENT: alert, awake, oriented to person, oriented to place, oriented to situation, CN II-XII grossly intact. ABSENT: motor sensory deficit Psychiatric exam: ABSENT: agitated, anxious Skin exam: PRESENT: dry, intact, warm. ABSENT: cyanosis, rash Laboratory/Radiographs Laboratory Results: 11/25/19 06:25 11/25/19 06:25 11/25/19 11/25/19 06:25 06:25 WBC 15.2 H RBC 3.71 L Hgb 11.4 L Hct 34.1 L MCV 92 MCH 30.6 MCHC 33.3 RDW 14.1 H Plt Count 314 Seg Neutrophils % Not Reportable Sodium 138.8 Potassium 4.5 Chloride 102 Carbon Dioxide 30 Anion Gap 7 BUN 43 H Creatinine 2.55 H Est GFR ( Amer) 30 L Glucose 179 H Calcium 8.0 L Magnesium 2.2 11/08/19 11/08/19 11/20/19 15:23 15:23 03:53 Creatine Kinase 200 H CK-MB (CK-2) Troponin I 0.093 NT-Pro-B Natriuret Pep 55991 H 11/21/19 11/21/19 11/21/19 06:57 08:20 08:20 Creatine Kinase 135 CK-MB (CK-2) 4.13 Troponin I 0.113 NT-Pro-B Natriuret Pep 85369 H 67647 H 11/22/19 11/23/19 11/24/19 02:20 03:50 04:06 Creatine Kinase CK-MB (CK-2) Troponin I NT-Pro-B Natriuret Pep 89354 H 5320 H 8390 H Impressions: Head CT 11/08/19 12:29 IMPRESSION: CHRONIC CHANGES OF ATROPHY AND MICROVASCULAR ISCHEMIA. NO ACUTE PROCESS. EVIDENCE OF ACUTE STROKE: NO. KUB X-Ray 11/21/19 00:00 IMPRESSION: Nasoenteric tube tip overlies gastric body. Chest X-Ray 11/24/19 05:00 IMPRESSION: STABLE APPEARANCE OF THE CHEST. All labs, radiographs, diagnostic studies and EKGs were personally reviewed: Yes In addition, reports of radiographic and diagnostic studies were read: Yes Assessment and Plan - Diagnosis (1) Acute respiratory failure with hypoxia and hypercapnia Is this a current diagnosis for this admission?: Yes Plan: * CPAP 8 nightly. Titrate FiO2 to keep SPO2 90-94 %. * Furosemide 20 mg IV daily. Start today. * Trach aspirate (11/21, previously incorrectly documented 11/22) isolated Enterobacter cloacae. On empiric Zosyn. Add doxycycline. If WBC count continues to trend downward tomorrow, stop Zosyn and finish treatment course with doxycycline. * Once extubated, this patient should use NIPPV nightly during any sleep. He has previously been advised to seek diagnostic polysomnography as an outpatient. But, he should also be evaluated prior to discharge home for chronic hypercapnic respiratory failure and possible need for home ventilator system. (2) Acute metabolic encephalopathy Is this a current diagnosis for this admission?: Yes Plan: Overall, improving; however, demonstrating waxing and waning course. (3) Enterobacter cloacae pneumonia Is this a current diagnosis for this admission?: Yes Plan: Started treatment on cefepime. Antibiotics changed to Zosyn on 11/21/2019 for broadened coverage of aspiration pneumonia. Also on doxycycline (with the intention of p.o. administration). (4) Longstanding persistent atrial fibrillation Is this a current diagnosis for this admission?: Yes Plan: Continue Xarelto. Start metoprolol. (5) CKD (chronic kidney disease) Qualifiers: Chronic kidney disease stage: stage 4 (severe) Qualified Code(s): N18.4 - Chronic kidney disease, stage 4 (severe) Is this a current diagnosis for this admission?: Yes Plan: Creatinine 2.6 today, stable. (6) UTI (urinary tract infection), bacterial Is this a current diagnosis for this admission?: Yes (7) Aspiration into lower respiratory tract Qualifiers: Encounter type: initial encounter Qualified Code(s): T17.800A - Unspecified foreign body in other parts of respiratory tract causing asphyxiation, initial encounter Is this a current diagnosis for this admission?: Yes Plan: Resolved (8) Hypoglycemic coma due to diabetes mellitus Is this a current diagnosis for this admission?: Yes (9) Pneumonia of left upper lobe due to methicillin resistant Staphylococcus aureus (MRSA) Is this a current diagnosis for this admission?: Yes Critical Time Critical Time (minutes): 45 Level of Care: ICU -: 1. The care of a critical patient is a dynamic process. This note is a installation service representative synopsis but static in nature. The timeframe for treatments given in order is not necessarily the actual time these treatments may have been done. 2. This patient requires critical care secondary to ongoing requirements for therapy not offered or safe outside the critical care environment. Transfer to a lower level of care will result in altered life or limb morbidity and mortality. 3. Multidisciplinary rounds completed. 4. ABCDE bundle addressed.
[2019-11-25] MEDS: METOPROLOL TARTRATE 25 MG TABLET PO SCH (21:54)
[2019-11-25] MEDS: ATORVASTATIN CALCIUM 40 MG TABLET NG SCH (21:54)
[2019-11-25] MEDS: DOXYCYCLINE HYCLATE 100 MG TABLET PO SCH (21:54)
[2019-11-26] MEDS: ALBUTEROL SULFATE 0.083% NEB 2.5 MG/3 ML AMPUL NEB SCH ×4 (02:39→20:01)
[2019-11-26 04:09] LABS: ABSOLUTE BASOPHILS # (AUTO) 0.1 10^3/uL (0.0-0.2); ABSOLUTE EOSINOPHILS # (AUTO) 0.4 10^3/uL (0.0-0.6); ABSOLUTE LYMPHOCYTES (AUTO) 0.8 10^3/uL (0.5-4.7); ABSOLUTE MONOCYTES (AUTO) 1.3 10^3/uL (0.1-1.4); EOSINOPHILS % (AUTO) 2.4 % (0-6); HEMATOCRIT 34.4 % (37.9-51.0); HEMOGLOBIN 11.2 g/dL (13.5-17.0); LYMPHOCYTES % (AUTO) 5.3 % (13-45); MEAN CORPUSCULAR HGB CONC 32.7 g/dL (32.0-36.0); MEAN CORPUSCULAR VOLUME 92 fl (80-97); MONOCYTES % (AUTO) 8.7 % (3-13); PLATELET COUNT 331 10^3/uL (150-450); RED BLOOD COUNT 3.74 10^6/uL (4.35-5.55); RED CELL DISTRIBUTION WIDTH 13.5 % (11.5-14.0); SEGMENTED NEUTROPHILS % (AUTO) 82.6 % (42-78); TOTAL CELLS COUNTED % (AUTO) 100 %; WHITE BLOOD COUNT 14.5 10^3/uL (4.0-10.5)
[2019-11-26 05:42] LABS: ANION GAP 10 (5-19); BLOOD UREA NITROGEN 40 mg/dL (7-20); CALCIUM 8.3 mg/dL (8.4-10.2); CARBON DIOXIDE 29 mmol/L (22-30); CHLORIDE 102 mmol/L (98-107); GLUCOSE 153 mg/dL (75-110); PHOSPHORUS 4.7 mg/dL (2.5-4.5); POTASSIUM 4.1 mmol/L (3.6-5.0)
[2019-11-26 05:49] LABS: PREALBUMIN 12.6 mg/dL (17.6-36.0)
[2019-11-26] MEDS: INSULIN LISPRO 100 UNIT/ML 3 ML VIAL SUBCUT SCH ×4 (05:55→23:54)
[2019-11-26] MEDS: GABAPENTIN 300 MG CAPSULE NG SCH ×3 (06:05→21:49)
[2019-11-26] MEDS: PIPERACILLIN SODIUM/TAZOBACTAM 3.375 GM in NORMAL SALINE 100 ML IV SCH ×2 (06:06→11:32)
[2019-11-26] MEDS: BUDESONIDE NEB 0.25 MG/2 ML AMPUL NEB SCH ×2 (08:16→20:01)
[2019-11-26] MEDS: DOXYCYCLINE HYCLATE 100 MG TABLET PO SCH ×2 (10:37→21:49)
[2019-11-26] MEDS: PANTOPRAZOLE SODIUM 40 MG VIAL IV SCH (10:37)
[2019-11-26] MEDS: RIVAROXABAN 10 MG TABLET NG SCH (10:37)
[2019-11-26] MEDS: ASPIRIN 81 MG TABLET, CHEWABLE NG SCH (10:37)
[2019-11-26] MEDS: POLYETHYLENE GLYCOL 3350 POWDER 17 GM/1 PACKET PO SCH (10:37)
[2019-11-26] MEDS: FUROSEMIDE INJ/PF 20 MG/2 ML SDV IV SCH (10:38)
[2019-11-26] MEDS: METOPROLOL TARTRATE 25 MG TABLET PO SCH ×2 (10:38→21:49)
[2019-11-26] MEDS: SENNOSIDES/DOCUSATE 8.6-50 MG 1 EACH TABLET NG SCH ×2 (10:38→18:45)
[2019-11-26] MEDS: FLUTICASONE NASAL SPRAY 50 MCG/SPRY 120 SPRAY/16 GM NASL SCH (10:39)
--- NOTE | 2019-11-26 18:00 | PDOC CRITICAL CARE PROG REPORT ---
General Date:: 11/26/19 ICU Day:: 6 - 2nd ICU stay Hospital Day:: 19 Resuscitation Status: Full Code Medical Power of Health Physics Technician: Events in the past 12 to 24 Hours:: This 74-year-old male was initially admitted on 11/07 after presenting to the emergency department with altered mental status (unresponsive). He was found to have hypoglycemia (glucose 40 mg/dL). He was intubated for altered mental status. He was successfully extubated on 11/10/2019 but has been intermittently confused with agitation/delirium, prompting Precedex infusion. 11/18: Precedex infusion was discontinued yesterday. Nursing staff reports that the patient was more alert and oriented yesterday than today. At the time of clinical interview today, the patient is awake. He is verbal but clearly confused. He is oriented only to self. Patient denies pain/discomfort. He denies shortness of breath. He is on supplemental oxygen at 5 LPM via nasal cannula. The nursing staff reports that he has been witnessed to have apneic ep isodes during sleep, associated with oxygen desaturation. He has not had a bowel movement during his hospitalization. He has had multiple enemas and even experienced rectal bleeding. But, no BM. 11/19: Mentation is much better today. On supplemental oxygen at 5 LPM via nasal cannula. Met with the patient's and daughter yesterday at the bedside, updated. 11/20: The patient transferred out to [facility] yesterday afternoon. He was seen by the hospitalist service and was noted to be clinically stable. However, early this morning, rapid response team was called to evaluate the patient who rep ortedly rapidly deteriorated to PEA arrest. ACLS protocol was initiated with ROSC achieved after "3 rounds of epinephrine". He was intubated post resuscitation and was transferred back to the ICU. At the time of clinical interview, the patient is awake. He is following commands. He is thrashing about and makes deliberate attempts to extubate himself. He is on mechanical ventilatory support with an FiO2 of 80%. He is on dopamine infusion for blood pressure support. 11/21: Remains intubated. On PRVC mode, FiO2 60%. ABG this mornin.43/46/220. Started on Zosyn/vancomycin for empiric coverage of aspiration pneumonia. Previously treated with cefepime/Zyvox for MRSA and Enterobacter cloacae pneumonia. Still on dopamine at 5 mcg/kg/min. Sedated with Precedex and fentanyl. 11/22: Self extubated earlier this morning. On 5 LPM via nasal cannula. WBC 16.3-->19.7. On Zosyn/vancomycin for empiric coverage of aspiration pneumonia. Still on dopamine at 1.5 mcg/kg/min. proBNP 11,700>5320. Awake, alert, follows commands. Seems a bit confused but does verbalize responses. 11/23: Remains extubated. Patient improving. Verbal, conversant. Swallows his pills without difficulty. WBC 19.715.2. On Zosyn/vancomycin for empiric coverage of aspiration pneumonia. Off dopamine. Monitor shows sinus rhythm with PACs. SBP 160s. Trach aspirate (11/21) isolated Enterobacter cloacae, sensitive to Zosyn but resistant to ampicillin and Unasyn. 11/24: Remains extubated. Slept with CPAP last night. Mentating well. Weak voice. Modest effort on incentive spirometry. On Zosyn for E cloacae pneumonia. Hemodynamically stable. 11/25: Remains extubated. Seems to have his days and nights backwards. [facility] staff reports patient is basically awake at night and is very sleepy during the day. Tolerates BiPAP during sleep, nonetheless. Mentation also improved. Able to take pills. On Zosyn for E cloacae pneumonia. WBC 14.5, downtrending. Review of systems relevant to events:: Neuropsychiatric: Altered mental status/confusion Pulmonary: Acute toxemic and hypercapnic respiratory failure Cardiovascular: Status post PEA arrest Renal: Acute on chronic III/IV kidney disease Reason for ICU Addmission:: need for mechanical ventilation, now extubated - Medications: Medications reviewed and adjusted accordingly: Yes Physical Exam Vital Signs: Temp Pulse Resp BP Pulse Ox 97.9 F 79 19 132/50 H 97 11/24/19 18:00 11/26/19 08:16 11/26/19 08:45 11/26/19 08:42 11/26/19 08:45 Intake & Output 11/25/19 11/26/19 11/27/19 06:59 06:59 06:59 Intake Total 666 300 100 Output Total 3175 3210 Balance -2509 -2910 100 Weight 89.3 kg 85.5 kg Weight/Height Weight 85.5 kg Height 1.8 m General appearance: PRESENT: no acute distress, well-developed, well-nourished Head exam: PRESENT: atraumatic, normocephalic Eye exam: PRESENT: conjunctiva pink, EOMI, PERRLA. ABSENT: scleral icterus Mouth exam: PRESENT: moist, tongue midline Neck exam: ABSENT: carotid bruit, JVD, lymphadenopathy, thyromegaly Respiratory exam: PRESENT: clear to auscultation reese. ABSENT: rales, rhonchi, wheezes Cardiovascular exam: PRESENT: RRR. ABSENT: diastolic murmur, rubs, systolic murmur Pulses: PRESENT: normal dorsalis pedis pul GI/Abdominal exam: PRESENT: normal bowel sounds, soft. ABSENT: distended, guarding, mass, organolmegaly, rebound, tenderness Extremities exam: PRESENT: full ROM, pedal edema, +1 edema. ABSENT: calf tenderness, clubbing Neurological exam: PRESENT: alert, awake, reflexes normal, CN II-XII grossly intact. ABSENT: motor sensory deficit Psychiatric exam: ABSENT: agitated, anxious Skin exam: PRESENT: dry, intact, warm. ABSENT: cyanosis, rash Laboratory/Radiographs Laboratory Results: 11/26/19 04:00 11/26/19 04:00 11/26/19 11/26/19 04:00 04:00 WBC 14.5 H RBC 3.74 L Hgb 11.2 L Hct 34.4 L MCV 92 MCH 30.0 MCHC 32.7 RDW 13.5 Plt Count 331 Seg Neutrophils % 82.6 H Sodium 140.8 Potassium 4.1 Chloride 102 Carbon Dioxide 29 Anion Gap 10 BUN 40 H Creatinine 2.63 H Est GFR ( Amer) 29 L Glucose 153 H Calcium 8.3 L Phosphorus 4.7 H Magnesium 2.2 Prealbumin 12.6 L 11/08/19 11/08/19 11/20/19 15:23 15:23 03:53 Creatine Kinase 200 H CK-MB (CK-2) Troponin I 0.093 NT-Pro-B Natriuret Pep 26980 H 11/21/19 11/21/19 11/21/19 06:57 08:20 08:20 Creatine Kinase 135 CK-MB (CK-2) 4.13 Troponin I 0.113 NT-Pro-B Natriuret Pep 02416 H 84378 H 11/22/19 11/23/19 11/24/19 02:20 03:50 04:06 Creatine Kinase CK-MB (CK-2) Troponin I NT-Pro-B Natriuret Pep 62814 H 5320 H 8390 H Impressions: Head CT 11/08/19 12:29 IMPRESSION: CHRONIC CHANGES OF ATROPHY AND MICROVASCULAR ISCHEMIA. NO ACUTE PROCESS. EVIDENCE OF ACUTE STROKE: NO. KUB X-Ray 11/21/19 00:00 IMPRESSION: Nasoenteric tube tip overlies gastric body. Chest X-Ray 11/24/19 05:00 IMPRESSION: STABLE APPEARANCE OF THE CHEST. All labs, radiographs, diagnostic studies and EKGs were personally reviewed: Yes In addition, reports of radiographic and diagnostic studies were read: Yes Assessment and Plan - Diagnosis (1) Acute respiratory failure with hypoxia and hypercapnia Is this a current diagnosis for this admission?: Yes Plan: * CPAP 8 nightly. Titrate FiO2 to keep SPO2 90-94 %. * Furosemide 20 mg IV daily. Start today. * Trach aspirate (11/21, previously incorrectly documented 11/22) isolated Enterobacter cloacae. On empiric Zosyn/doxycycline. Stop Zosyn. Continue doxycycline. * This patient should use NIPPV nightly during any sleep. He has previously been advised to seek diagnostic polysomnography as an outpatient. But, he should also be evaluated prior to discharge home for chronic hypercapnic respiratory failure and possible need for home ventilator system. (2) Enterobacter cloacae pneumonia Is this a current diagnosis for this admission?: Yes Plan: Started treatment on cefepime. Antibiotics changed to Zosyn on 11/21/2019 for broadened coverage of aspiration pneumonia. Stop IV antibiotics. Finish out treatment course with p.o. doxycycline. (3) Longstanding persistent atrial fibrillation Is this a current diagnosis for this admission?: Yes Plan: Continue Xarelto. Continue metoprolol. (4) Acute metabolic encephalopathy Is this a current diagnosis for this admission?: Yes (5) CKD (chronic kidney disease) Qualifiers: Chronic kidney disease stage: stage 4 (severe) Qualified Code(s): N18.4 - Chronic kidney disease, stage 4 (severe) Is this a current diagnosis for this admission?: Yes (6) UTI (urinary tract infection), bacterial Is this a current diagnosis for this admission?: Yes (7) Aspiration into lower respiratory tract Qualifiers: Encounter type: initial encounter Qualified Code(s): T17.800A - Unspecified foreign body in other parts of respiratory tract causing asphyxiation, initial encounter Is this a current diagnosis for this admission?: Yes (8) Hypoglycemic coma due to diabetes mellitus Is this a current diagnosis for this admission?: Yes (9) Pneumonia of left upper lobe due to methicillin resistant Staphylococcus aureus (MRSA) Is this a current diagnosis for this admission?: Yes Critical Time Critical Time (minutes): 60 Level of Care: ICU -: 1. The care of a critical patient is a dynamic process. This note is a community engagement representative synopsis but static in nature. The timeframe for treatments given in order is not necessarily the actual time these treatments may have been done. 2. This patient requires critical care secondary to ongoing requirements for therapy not offered or safe outside the critical care environment. Transfer to a lower level of care will result in altered life or limb morbidity and mortality. 3. Multidisciplinary rounds completed. 4. ABCDE bundle addressed.
[2019-11-26] MEDS: ATORVASTATIN CALCIUM 40 MG TABLET NG SCH (21:49)
[2019-11-26] MEDS: QUETIAPINE FUMARATE 25 MG TABLET PO SCH (21:49)
[2019-11-27 04:22] LABS: ABSOLUTE BASOPHILS # (AUTO) 0.1 10^3/uL (0.0-0.2); ABSOLUTE EOSINOPHILS # (AUTO) 0.3 10^3/uL (0.0-0.6); ABSOLUTE LYMPHOCYTES (AUTO) 0.7 10^3/uL (0.5-4.7); ABSOLUTE MONOCYTES (AUTO) 1.1 10^3/uL (0.1-1.4); ABSOLUTE NEUT (AUTO) 11.1 10^3/uL (1.7-8.2); BASOPHILS % (AUTO) 0.8 % (0-2); EOSINOPHILS % (AUTO) 2.1 % (0-6); HEMOGLOBIN 10.9 g/dL (13.5-17.0); LYMPHOCYTES % (AUTO) 5.6 % (13-45); MEAN CORPUSCULAR HEMOGLOBIN 29.9 pg (27.0-33.4); MEAN CORPUSCULAR VOLUME 91 fl (80-97); MONOCYTES % (AUTO) 8.4 % (3-13); PLATELET COUNT 303 10^3/uL (150-450); RED BLOOD COUNT 3.63 10^6/uL (4.35-5.55); RED CELL DISTRIBUTION WIDTH 13.2 % (11.5-14.0); SEGMENTED NEUTROPHILS % (AUTO) 83.1 % (42-78); TOTAL CELLS COUNTED % (AUTO) 100 %; WHITE BLOOD COUNT 13.3 10^3/uL (4.0-10.5)
[2019-11-27] MEDS: ALBUTEROL SULFATE 0.083% NEB 2.5 MG/3 ML AMPUL NEB SCH ×4 (04:23→20:48)
[2019-11-27] MEDS: GABAPENTIN 300 MG CAPSULE NG SCH ×2 (06:14→13:19)
[2019-11-27] MEDS: INSULIN LISPRO 100 UNIT/ML 3 ML VIAL SUBCUT SCH ×4 (06:14→21:16)
[2019-11-27] MEDS: BUDESONIDE NEB 0.25 MG/2 ML AMPUL NEB SCH ×2 (08:52→20:48)
--- NOTE | 2019-11-27 09:23 | RADIOLOGY REPORT (SQ) ---
EXAM DESCRIPTION: CHEST SINGLE VIEW IMAGES COMPLETED DATE/TIME: 11/27/2019 5:48 am REASON FOR STUDY: dyspnea COMPARISON: 11/24/2019 EXAM PARAMETERS: NUMBER OF VIEWS: One view. TECHNIQUE: Single frontal radiographic view of the chest acquired. RADIATION DOSE: NA LIMITATIONS: None. FINDINGS: LUNGS AND PLEURA: Interval development of a moderate left-sided pleural effusion with comp ressive atelectasis versus consolidation of the left lower lobe and lingula. Somewhat improved aerat ion on the right with resolution of a right-sided pleural effusion demonstrated on comparison imaging . No pneumothorax. MEDIASTINUM AND HILAR STRUCTURES: No masses. Contour normal. HEART AND VASCULAR STRUCTURES: Heart normal in size. Normal vasculature. BONES: No acute findings. HARDWARE: None in the chest. OTHER: No other significant finding. IMPRESSION: Interval development of a moderate left-sided pleural effusion with compressive atelecta sis versus consolidation of the left lower lobe and lingula. Improved aeration on the right. TECHNICAL DOCUMENTATION: JOB ID: [id number] 2010 [employer]- All Rights Reserved Reading location - IP/workstation name: [email or web address]
[2019-11-27] MEDS: METOPROLOL TARTRATE 25 MG TABLET PO SCH ×2 (10:31→21:18)
[2019-11-27] MEDS: POLYETHYLENE GLYCOL 3350 POWDER 17 GM/1 PACKET PO SCH (10:31)
[2019-11-27] MEDS: DOXYCYCLINE HYCLATE 100 MG TABLET PO SCH (10:31)
[2019-11-27] MEDS: FUROSEMIDE INJ/PF 20 MG/2 ML SDV IV SCH (10:31)
[2019-11-27] MEDS: RIVAROXABAN 10 MG TABLET NG SCH (10:31)
[2019-11-27] MEDS: ASPIRIN 81 MG TABLET, CHEWABLE NG SCH (10:31)
[2019-11-27] MEDS: SENNOSIDES/DOCUSATE 8.6-50 MG 1 EACH TABLET NG SCH (10:32)
[2019-11-27] MEDS: FLUTICASONE NASAL SPRAY 50 MCG/SPRY 120 SPRAY/16 GM NASL SCH (10:32)
--- NOTE | 2019-11-27 16:19 | PDOC CRITICAL CARE PROG REPORT ---
General Date:: 11/27/19 ICU Day:: 7 - ICU stay Hospital Day:: 20 Resuscitation Status: Full Code Medical Power of Boot And Saddle Repair Person: Events in the past 12 to 24 Hours:: This 74-year-old male was initially admitted on 11/07 after presenting to the emergency department with altered mental status (unresponsive). He was found to have hypoglycemia (glucose 40 mg/dL). He was intubated for altered mental status. He was successfully extubated on 11/10/2019 but has been intermittently confused with agitation/delirium, prompting Precedex infusion. 11/18: Precedex infusion was discontinued yesterday. Nursing staff reports that the patient was more alert and oriented yesterday than today. At the time of clinical interview today, the patient is awake. He is verbal but clearly confused. He is oriented only to self. Patient denies pain/discomfort. He denies shortness of breath. He is on supplemental oxygen at 5 LPM via nasal cannula. The nursing staff reports that he has been witnessed to have apneic ep isodes during sleep, associated with oxygen desaturation. He has not had a bowel movement during his hospitalization. He has had multiple enemas and even experienced rectal bleeding. But, no BM. 11/19: Mentation is much better today. On supplemental oxygen at 5 LPM via nasal cannula. Met with the patient's and daughter yesterday at the bedside, updated. 11/20: The patient transferred out to [facility] yesterday afternoon. He was seen by the hospitalist service and was noted to be clinically stable. However, early this morning, rapid response team was called to evaluate the patient who rep ortedly rapidly deteriorated to PEA arrest. ACLS protocol was initiated with ROSC achieved after "3 rounds of epinephrine". He was intubated post resuscitation and was transferred back to the ICU. At the time of clinical interview, the patient is awake. He is following commands. He is thrashing about and makes deliberate attempts to extubate himself. He is on mechanical ventilatory support with an FiO2 of 80%. He is on dopamine infusion for blood pressure support. 11/21: Remains intubated. On PRVC mode, FiO2 60%. ABG this mornin.43/46/220. Started on Zosyn/vancomycin for empiric coverage of aspiration pneumonia. Previously treated with cefepime/Zyvox for MRSA and Enterobacter cloacae pneumonia. Still on dopamine at 5 mcg/kg/min. Sedated with Precedex and fentanyl. 11/22: Self extubated earlier this morning. On 5 LPM via nasal cannula. WBC 16.3-->19.7. On Zosyn/vancomycin for empiric coverage of aspiration pneumonia. Still on dopamine at 1.5 mcg/kg/min. proBNP 11,700>5320. Awake, alert, follows commands. Seems a bit confused but does verbalize responses. 11/23: Remains extubated. Patient improving. Verbal, conversant. Swallows his pills without difficulty. WBC 19.715.2. On Zosyn/vancomycin for empiric coverage of aspiration pneumonia. Off dopamine. Monitor shows sinus rhythm with PACs. SBP 160s. Trach aspirate (11/21) isolated Enterobacter cloacae, sensitive to Zosyn but resistant to ampicillin and Unasyn. 11/24: Remains extubated. Slept with CPAP last night. Mentating well. Weak voice. Modest effort on incentive spirometry. On Zosyn for E cloacae pneumonia. Hemodynamically stable. 11/25: Remains extubated. Seems to have his days and nights backwards. Ov [facility] staff reports patient is basically awake at night and is very sleepy during the day. Tolerates BiPAP during sleep, nonetheless. Mentation also improved. Able to take pills. On Zosyn for E cloacae pneumonia. WBC 14.5, downtrending. 11/26: Remains extubated. Doing well. Slept last night with Seroquel. Eating, drinking, talking this morning. On Zosyn. WBC 14.5>13.3. Afebrile. Chest x-ray this morning shows dramatic improvement in right lung aeration. Left lung shows veiling opacity, consistent with left-sided pleural effusion, likely with some compressive atelectasis. On furosemide 20 mg IV daily. Review of systems relevant to events:: Neuropsychiatric: Altered mental status/confusion Pulmonary: Acute toxemic and hypercapnic respiratory failure Cardiovascular: Status post PEA arrest Renal: Acute on chronic III/IV kidney disease Reason for ICU Addmission:: need for mechanical ventilation, now extubated - Medications: Medications reviewed and adjusted accordingly: Yes Physical Exam Vital Signs: Temp Pulse Resp BP Pulse Ox 97.9 F 88 15 149/66 H 97 11/24/19 18:00 11/27/19 08:52 11/27/19 08:52 11/27/19 06:27 11/27/19 08:52 Intake & Output 11/26/19 11/27/19 11/28/19 06:59 06:59 06:59 Intake Total 300 350 Output Total 3210 1525 Balance -2910 -1175 Weight 85.5 kg 85.6 kg Weight/Height Weight 85.6 kg Height 1.8 m General appearance: PRESENT: no acute distress, obese, well-developed, well-nourished Head exam: PRESENT: atraumatic, normocephalic Mouth exam: PRESENT: moist, tongue midline Neck exam: ABSENT: carotid bruit, JVD, lymphadenopathy, thyromegaly Respiratory exam: PRESENT: crackles, decreased breath sounds - Left base. ABSENT: rales, rhonchi, wheezes Cardiovascular exam: PRESENT: irregular rhythm. ABSENT: diastolic murmur, rubs, systolic murmur Pulses: PRESENT: normal carotid pulses GI/Abdominal exam: PRESENT: normal bowel sounds, soft. ABSENT: distended, guarding, mass, organolmegaly, rebound, tenderness Gentrourinary exam: PRESENT: indwelling catheter Extremities exam: PRESENT: full ROM. ABSENT: calf tenderness, clubbing, pedal edema Musculoskeletal exam: PRESENT: normal inspection. ABSENT: deformity Neurological exam: PRESENT: alert, awake, oriented to person, oriented to situation, reflexes normal, CN II-XII grossly intact. ABSENT: oriented to place, oriented to time, motor sensory deficit Psychiatric exam: PRESENT: appropriate affect. ABSENT: agitated, anxious Skin exam: PRESENT: dry, intact, warm. ABSENT: cyanosis, rash Laboratory/Radiographs Laboratory Results: 11/27/19 04:08 11/26/19 04:00 11/27/19 04:08 WBC 13.3 H RBC 3.63 L Hgb 10.9 L Hct 33.0 L MCV 91 MCH 29.9 MCHC 33.0 RDW 13.2 Plt Count 303 Seg Neutrophils % 83.1 H 11/21/19 21:40 Blood Blood Culture - Final NO GROWTH IN 5 DAYS 11/21/19 14:30 Blood Blood Culture - Final NO GROWTH IN 5 DAYS 11/08/19 11/08/19 11/20/19 15:23 15:23 03:53 Creatine Kinase 200 H CK-MB (CK-2) Troponin I 0.093 NT-Pro-B Natriuret Pep 37963 H 11/21/19 11/21/19 11/21/19 06:57 08:20 08:20 Creatine Kinase 135 CK-MB (CK-2) 4.13 Troponin I 0.113 NT-Pro-B Natriuret Pep 50466 H 50225 H 11/22/19 11/23/19 11/24/19 02:20 03:50 04:06 Creatine Kinase CK-MB (CK-2) Troponin I NT-Pro-B Natriuret Pep 59463 H 5320 H 8390 H Impressions: Head CT 11/08/19 12:29 IMPRESSION: CHRONIC CHANGES OF ATROPHY AND MICROVASCULAR ISCHEMIA. NO ACUTE PROCESS. EVIDENCE OF ACUTE STROKE: NO. KUB X-Ray 11/21/19 00:00 IMPRESSION: Nasoenteric tube tip overlies gastric body. Chest X-Ray 11/27/19 05:00 IMPRESSION: Interval development of a moderate left-sided pleural effusion with compressive atelectasis versus consolidation of the left lower lobe and lingula. Improved aeration on the right. All labs, radiographs, diagnostic studies and EKGs were personally reviewed: Yes In addition, reports of radiographic and diagnostic studies were read: Yes Assessment and Plan - Diagnosis (1) Acute respiratory failure with hypoxia and hypercapnia Is this a current diagnosis for this admission?: Yes Plan: * CPAP 8 nightly. Titrate FiO2 to keep SPO2 90-94 %. * Continue furosemide 20 mg IV daily (started 11/26/2019). * Trach aspirate (11/21, previously incorrectly documented 11/22) isolated Enterobacter cloacae. On empiric Zosyn/doxycycline. Stop Zosyn. Continue doxycycline. * This patient should use NIPPV nightly during any sleep. He has previously been advised to seek diagnostic polysomnography as an outpatient. But, he should also be evaluated prior to discharge home for chronic hypercapnic respiratory failure and possible need for home ventilator system. (2) Enterobacter cloacae pneumonia Is this a current diagnosis for this admission?: Yes Plan: Started treatment on cefepime. Antibiotics changed to Zosyn on 11/21/2019 for broadened coverage of aspiration pneumonia. Stop IV antibiotics. Finish out treatment course with p.o. doxycycline. (3) Longstanding persistent atrial fibrillation Is this a current diagnosis for this admission?: Yes Plan: Continue Xarelto. Continue metoprolol. (4) Acute metabolic encephalopathy Is this a current diagnosis for this admission?: Yes (5) CKD (chronic kidney disease) Qualifiers: Chronic kidney disease stage: stage 4 (severe) Qualified Code(s): N18.4 - Chronic kidney disease, stage 4 (severe) Is this a current diagnosis for this admission?: Yes (6) UTI (urinary tract infection), bacterial Is this a current diagnosis for this admission?: Yes (7) Aspiration into lower respiratory tract Qualifiers: Encounter type: initial encounter Qualified Code(s): T17.800A - Unspecified foreign body in other parts of respiratory tract causing asphyxiation, initial encounter Is this a current diagnosis for this admission?: Yes (8) Hypoglycemic coma due to diabetes mellitus Is this a current diagnosis for this admission?: Yes (9) Pneumonia of left upper lobe due to methicillin resistant Staphylococcus aureus (MRSA) Is this a current diagnosis for this admission?: Yes Plan Summary: Okay to transfer to [facility] from pulmonary/critical care standpoint. Critical Time Critical Time (minutes): 60 Level of Care: ICU -: 1. The care of a critical patient is a dynamic process. This note is a nutrition representative synopsis but static in nature. The timeframe for treatments given in order is not necessarily the actual time these treatments may have been done. 2. This patient requires critical care secondary to ongoing requirements for therapy not offered or safe outside the critical care environment. Transfer to a lower level of care will result in altered life or limb morbidity and mortality. 3. Multidisciplinary rounds completed. 4. ABCDE bundle addressed.
--- NOTE | 2019-11-27 17:18 | PDOC PROGRESS REPORT ---
Subjective Progress Note for:: 11/27/19 Subjective:: Signout received from instrumentation instructor. Briefly, patient is a 74-year-old male with a history of atrial fibrillation, CKD, diabetes mellitus on insulin, who presented to the hospital on 11/08/2019 after being found to be encephalopathic and unresponsive. He was noted to be hypoglycemic with blood glucose level of 40. In the ER he was noted to be in acute hypercapnic respiratory failure thought to be secondary to his obtundation. He was intubated and admitted to the ICU. His blood sugar was corrected and he was later extubated. Still noted to have some mentation deficits. Later transferred to the floor. Had a CODE BLUE called the subsequent day 11/21/2019 for PEA. Resuscitated after few rounds of CPR and 3 rounds of epi. Intubated and transferred to the ICU. pH at that time was 7.12 with PCO2 of 60 bicarb of 18.8. Suspicion, per instrumentation instructor, was that patient went into hypercapnic respiratory failure causing acidosis from not sleeping with his cpap prior to that event. In the ICU, patient had good neurological status hours responding. Treated for aspiration pneumonia initially with empiric Zosyn and vancomycin. Was also on a dopamine drip. Self extubated on 11/23/2019 transitioned to 5 L nasal cannula. On nocturnal CPAP. Currently transitioned to doxycycline. Patient's is sluggish when talking. He does seem a little bit confused on time. However able to answer questions and looks fully alert. Reason For Visit: COMA,HYPOGLYCEMIC Physical Exam Vital Signs: Temp Pulse Resp BP Pulse Ox 97.9 F 88 19 129/59 H 98 11/24/19 18:00 11/27/19 08:52 11/27/19 14:00 11/27/19 13:28 11/27/19 14:00 Intake & Output 11/26/19 11/27/19 11/28/19 06:59 06:59 06:59 Intake Total 300 350 Output Total 3210 3441 750 Balance -0929 -9919 -818 Weight 85.5 kg 85.6 kg General appearance: PRESENT: no acute distress, cooperative Neck exam: ABSENT: JVD Respiratory exam: PRESENT: clear to auscultation reese, symmetrical, unlabored. ABSENT: tachypnea, wheezes Cardiovascular exam: PRESENT: +S1, +S2. ABSENT: tachycardia Neurological exam: PRESENT: alert, awake, oriented to person, oriented to place, other - Answers questions but very sluggishly. Seems to have some kind of baseline cognitive impairment.. ABSENT: oriented to time, oriented to situation Results Laboratory Results: 11/27/19 04:08 11/26/19 04:00 11/27/19 04:08 WBC 13.3 H RBC 3.63 L Hgb 10.9 L Hct 33.0 L MCV 91 MCH 29.9 MCHC 33.0 RDW 13.2 Plt Count 303 Seg Neutrophils % 83.1 H 11/23/19 12:21 Catheter Tip - Trilumen Catheter Tip Culture - Final Yeast, Not Theresa Albicans 11/21/19 21:40 Blood Blood Culture - Final NO GROWTH IN 5 DAYS 11/21/19 14:30 Blood Blood Culture - Final NO GROWTH IN 5 DAYS 11/08/19 11/08/19 11/20/19 15:23 15:23 03:53 Creatine Kinase 200 H CK-MB (CK-2) Troponin I 0.093 NT-Pro-B Natriuret Pep 32697 H 11/21/19 11/21/19 11/21/19 06:57 08:20 08:20 Creatine Kinase 135 CK-MB (CK-2) 4.13 Troponin I 0.113 NT-Pro-B Natriuret Pep 29816 H 70905 H 11/22/19 11/23/19 11/24/19 02:20 03:50 04:06 Creatine Kinase CK-MB (CK-2) Troponin I NT-Pro-B Natriuret Pep 03423 H 5320 H 8390 H Impressions: Head CT 11/08/19 12:29 IMPRESSION: CHRONIC CHANGES OF ATROPHY AND MICROVASCULAR ISCHEMIA. NO ACUTE P ROCESS. EVIDENCE OF ACUTE STROKE: NO. KUB X-Ray 11/21/19 00:00 IMPRESSION: Nasoenteric tube tip overlies gastric body. Chest X-Ray 11/27/19 05:00 IMPRESSION: Interval development of a moderate left-sided pleural effusion with compressive atelectasis versus consolidation of the left lower lobe and lingula. Improved aeration on the right. Assessment and Plan - Diagnosis (1) Acute metabolic encephalopathy Is this a current diagnosis for this admission?: Yes Plan: Improved. Seems to have some baseline cognitive impairment. (2) Acute respiratory failure with hypoxia and hypercapnia Is this a current diagnosis for this admission?: Yes Plan: CPAP 8 nightly. Titrate FiO2 to keep SPO2 90-94 %. Continue furosemide 20 mg IV daily (started 11/26/2019). Punch Box Tender recommending: patient should use NIPPV nightly during any sleep. He has previously been advised to seek diagnostic polysomnography as an outpatient. But, he should also be evaluated prior to discharge home for chronic hypercapnic respiratory failure and possible need for home ventilator system. (3) CKD (chronic kidney disease) Qualifiers: Chronic kidney disease stage: stage 4 (severe) Qualified Code(s): N18.4 - Chronic kidney disease, stage 4 (severe) Is this a current diagnosis for this admission?: Yes Plan: Stable. Creatinine seems close to baseline. (4) Enterobacter cloacae pneumonia Is this a current diagnosis for this admission?: Yes Plan: Started treatment on cefepime. Antibiotics changed to Zosyn on 11/21/2019 for broadened coverage of aspiration pneumonia. Finishing out treatment course with p.o. doxycycline. (5) Longstanding persistent atrial fibrillation Is this a current diagnosis for this admission?: Yes Plan: Continue Lopressor and Xarelto (6) Diabetes Qualifiers: Diabetes mellitus type: type 2 Is this a current diagnosis for this admission?: Yes (7) Cardiac arrest with successful resuscitation Is this a current diagnosis for this admission?: Yes Plan: 11/21/2019. ROSC after few rounds of CPR and 3 rounds of epi. Neurological status adequate following event. - Time Time Spent with patient: Less than 15 minutes Anticipated Discharge Disposition: Home, Self Care Anticipated Discharge Timeframe: within 48 hours
[2019-11-27] MEDS: SENNOSIDES/DOCUSATE 8.6-50 MG 1 EACH TABLET PO SCH (17:46)
[2019-11-27] MEDS: GABAPENTIN 300 MG CAPSULE PO SCH (21:17)
[2019-11-27] MEDS: ATORVASTATIN CALCIUM 40 MG TABLET PO SCH (21:17)
[2019-11-27] MEDS: QUETIAPINE FUMARATE 25 MG TABLET PO SCH (21:18)
[2019-11-27] MEDS ORDERED: DOXYCYCLINE HYCLATE 100 MG TABLET PO ONE (22:07)
[2019-11-28] MEDS: DOXYCYCLINE HYCLATE 100 MG TABLET PO SCH ×2 (00:40→09:51)
[2019-11-28] MEDS: GABAPENTIN 300 MG CAPSULE PO SCH ×4 (00:45→22:14)
[2019-11-28] MEDS: ALBUTEROL SULFATE 0.083% NEB 2.5 MG/3 ML AMPUL NEB SCH ×4 (02:40→20:49)
[2019-11-28] MEDS: BUDESONIDE NEB 0.25 MG/2 ML AMPUL NEB SCH ×2 (08:42→20:49)
[2019-11-28] MEDS: INSULIN LISPRO 100 UNIT/ML 3 ML VIAL SUBCUT SCH ×4 (09:43→22:00)
[2019-11-28] MEDS: SENNOSIDES/DOCUSATE 8.6-50 MG 1 EACH TABLET PO SCH ×2 (09:51→18:08)
[2019-11-28] MEDS: ASPIRIN 81 MG TABLET, CHEWABLE PO SCH (09:51)
[2019-11-28] MEDS: RIVAROXABAN 10 MG TABLET PO SCH (09:51)
[2019-11-28] MEDS: FLUTICASONE NASAL SPRAY 50 MCG/SPRY 120 SPRAY/16 GM NASL SCH (09:52)
[2019-11-28] MEDS: METOPROLOL TARTRATE 25 MG TABLET PO SCH ×2 (09:52→22:05)
[2019-11-28] MEDS: POLYETHYLENE GLYCOL 3350 POWDER 17 GM/1 PACKET PO SCH (09:52)
[2019-11-28] MEDS: FUROSEMIDE INJ/PF 20 MG/2 ML SDV IV SCH (09:57)
--- NOTE | 2019-11-28 12:59 | PDOC PROGRESS REPORT ---
Subjective Progress Note for:: 11/28/19 Subjective:: Hospital course Briefly, patient is a 74-year-old male with a history of atrial fibrillation, CKD, diabetes mellitus on insulin, who presented to the hospital on 11/08/2019 after being found to be encephalopathic and unresponsive. He was noted to be hypoglycemic with blood glucose level of 40. In the ER he was noted to be in acute hypercapnic respiratory failure thought to be secondary to his obtundation. He was intubated and admitted to the ICU. His blood sugar was corrected and he was later extubated. Still noted to have some mentation deficits. Later transferred to the floor. Had a CODE BLUE called the subsequent day 11/21/2019 for PEA. Resuscitated after few rounds of CPR and 3 rounds of epi. Intubated and transferred to the ICU. pH at that time was 7.12 with PCO2 of 60 bicarb of 18.8. Suspicion, per banquet prep cook, was that patient went into hypercapnic respiratory failure causing acidosis from not sleeping with his cpap prior to that event. In the ICU, patient had good neurological status hours responding. Treated for aspiration pneumonia initially with empiric Zosyn and vancomycin. Was also on a dopamine drip. Self extubated on 11/23/2019 transitioned to 5 L nasal cannula. On nocturnal CPAP. Currently transitioned to doxycycline. Patient's is sluggish when talking. He does seem a little bit confused on time. However able to answer questions and looks fully alert. Transferred out of ICU to [facility] on 11/27/2019. This morning, patient denies any shortness of breath. Clearly seems to have cognitive impairment. Sluggish to respond to questions and just gazes for long periods. He often removes his nasal cannula very frequently and actually on room air at 85% when I came into his room. Did not look distressed. Reason For Visit: COMA,HYPOGLYCEMIC Physical Exam Vital Signs: Temp Pulse Resp BP Pulse Ox 99.1 F 91 28 H 146/76 H 83 L 11/28/19 03:17 11/28/19 08:42 11/28/19 08:42 11/28/19 03:17 11/28/19 11:32 Pulse Oximeter Continuous Start: 11/27/19 16:38 Freq: RTQ4 Status: Active Protocol: Document 11/28/19 11:32 [facility] (Rec: 11/28/19 11:33 NSC [id number]) Pulse Oximetry Assessment Oxygen Saturation (92-100) 83 Oxygen Delivery Method Room Air Fraction of Inspired Oxygen (FIO2) 21 Equipment Usage Equipment in Use Continuous SpO2 Machine # 7 Additional RT Notes Other pt returned to nasal cannula spo2 rising and is currently 90 Intake & Output 11/27/19 11/28/19 11/29/19 06:59 06:59 06:59 Intake Total 350 Output Total 1525 1800 Balance -1175 -1800 Weight 85.6 kg 85.8 kg 85.8 kg General appearance: PRESENT: no acute distress, cooperative Neck exam: ABSENT: JVD Respiratory exam: PRESENT: clear to auscultation reese, symmetrical, unlabored, wheezes - Mild. ABSENT: crackles, tachypnea Cardiovascular exam: PRESENT: irregular rhythm, +S1, +S2. ABSENT: tachycardia GI/Abdominal exam: PRESENT: soft. ABSENT: rebound, rigid, tenderness Neurological exam: PRESENT: alert, awake, oriented to person, other - From gazes. Seems confused. Sluggish in responding during conversation.. ABSENT: oriented to place, oriented to time, oriented to situation Psychiatric exam: PRESENT: unusual affect. ABSENT: agitated, anxious Results Laboratory Results: 11/27/19 04:08 11/26/19 04:00 11/23/19 12:21 Catheter Tip - Trilumen Catheter Tip Culture - Final Yeast, Not Theresa Albicans 11/08/19 11/08/19 11/20/19 15:23 15:23 03:53 Creatine Kinase 200 H CK-MB (CK-2) Troponin I 0.093 NT-Pro-B Natriuret Pep 08040 H 11/21/19 11/21/19 11/21/19 06:57 08:20 08:20 Creatine Kinase 135 CK-MB (CK-2) 4.13 Troponin I 0.113 NT-Pro-B Natriuret Pep 78985 H 39518 H 11/22/19 11/23/19 11/24/19 02:20 03:50 04:06 Creatine Kinase CK-MB (CK-2) Troponin I NT-Pro-B Natriuret Pep 59865 H 5320 H 8390 H Impressions: Head CT 11/08/19 12:29 IMPRESSION: CHRONIC CHANGES OF ATROPHY AND MICROVASCULAR ISCHEMIA. NO ACUTE PROCESS. EVIDENCE OF ACUTE STROKE: NO. KUB X-Ray 11/21/19 00:00 IMPRESSION: Nasoenteric tube tip overlies gastric body. Chest X-Ray 11/27/19 05:00 IMPRESSION: Interval development of a moderate left-sided pleural effusion with compressive atelectasis versus consolidation of the left lower lobe and lingula. Improved aeration on the right. Assessment and Plan - Diagnosis (1) Acute metabolic encephalopathy Is this a current diagnosis for this admission?: Yes Plan: Improved. Seems to have some baseline cognitive impairment. (2) Acute respiratory failure with hypoxia and hypercapnia Is this a current diagnosis for this admission?: Yes Plan: CPAP 8 nightly. Titrate FiO2 to keep SPO2 90-94 %. Continue furosemide 20 mg IV daily (started 11/26/2019). Social Work Associate recommendation: patient should use NIPPV nightly during any sleep. He has previously been advised to seek diagnostic polysomnography as an outpatient. But, he should also be evaluated prior to discharge home for chronic hypercapnic respiratory failure and possible need for home ventilator system. Will check blood gas today on nasal cannula to see if still retaining CO2 to see if he will qualify for ventilator system. (3) Enterobacter cloacae pneumonia Is this a current diagnosis for this admission?: Yes Plan: Started treatment on cefepime. Antibiotics changed to Zosyn on 11/21/2019 for broadened coverage of aspiration pneumonia. Finishing out treatment course with p.o. doxycycline. (4) CKD (chronic kidney disease) Qualifiers: Chronic kidney disease stage: stage 4 (severe) Qualified Code(s): N18.4 - Chronic kidney disease, stage 4 (severe) Is this a current diagnosis for this admission?: Yes Plan: Stable. Creatinine seems close to baseline. (5) Longstanding persistent atrial fibrillation Is this a current diagnosis for this admission?: Yes Plan: Continue Lopressor and Xarelto (6) Diabetes Qualifiers: Diabetes mellitus type: type 2 Diabetes mellitus predatory animal exterminator insulin use: with prison use Diabetes mellitus complication status: with other specified complication Qualified Code(s): E11.69 - Type 2 diabetes mellitus with other specified complication; Z79.4 - snf (current) use of insulin Is this a current diagnosis for this admission?: Yes Plan: Initially presented with encephalopathy and respiratory failure secondary to hypoglycemia. Seems he was taking 50 units of nightly Lantus at home which may have been too much for him potentially given renal function and I suspect not eating adequately. Currently just on sliding scale. I will try him on 12 units of morning Lantus and monitor closely with Accu- Cheks. Adjust as needed. (7) Cardiac arrest with successful resuscitation Is this a current diagnosis for this admission?: Yes Plan: Occurred on 11/21/2019. ROSC after few rounds of CPR and 3 rounds of epi. Adequate neurological response following event. - Time Time Spent with patient: 15-24 minutes Anticipated Discharge Disposition: Home, Self Care Anticipated Discharge Timeframe: within 72 hours
[2019-11-28] MEDS ORDERED: INSULIN GLARGINE,HUM.REC.ANLOG 1,000 UNIT/10 ML VIAL SUBCUT SCH (14:00)
[2019-11-28 14:40] LABS: ARTERIAL BLOOD BASE EXCESS 4.9 mmol/L; ARTERIAL BLOOD FIO2 5L; ARTERIAL BLOOD HCO3 25.7 mmol/L (20-24); ARTERIAL BLOOD O2 SATURATION 93.5 % (94-98); ARTERIAL BLOOD PCO2 26.5 mmHg (35-45); ARTERIAL BLOOD PO2 54.8 mmHg (80-100); ARTERIAL BLOOD TOTAL CO2 26.5 mmol/L (23-27)
[2019-11-28] MEDS ORDERED: PIPERACILLIN/TAZOBACTAM 3.375 GM VIAL IV SCH (15:00)
[2019-11-28] MEDS ORDERED: ACETAZOLAMIDE SODIUM INJ 500 MG VIAL IV ONE (16:00)
[2019-11-28 18:16] LABS: VENOUS BLOOD BASE EXCESS 7.2 mmol/L; VENOUS BLOOD HCO3 28.6 mmol/L (20-32); VENOUS BLOOD PCO2 31.4 mmHg (35-63); VENOUS BLOOD PH 7.58 (7.30-7.42)
[2019-11-28] MEDS: PIPERACILLIN SODIUM/TAZOBACTAM 2.25 GM in NORMAL SALINE 50 ML IV SCH (19:33)
--- NOTE | 2019-11-28 19:39 | ADVANCED CARE ---
- Diagnosis (1) Acute metabolic encephalopathy Diagnosis Current: Yes (2) Acute respiratory failure with hypoxia and hypercapnia Diagnosis Current: Yes (3) Enterobacter cloacae pneumonia Diagnosis Current: Yes (7) Cardiac arrest with successful resuscitation Diagnosis Current: Yes (8) Oropharyngeal dysphagia Diagnosis Current: Yes Attendance: Patient, patient's daughter and patient's Resuscitation Status: Do Not Intubate Discussion: I had very lengthy conversations with family today. Discussed CODE STATUS. They said they would like DNI. I explained elaborately the implications of CPR without intubation and he said they will discuss further to determine if they wanted to make him a no code. Also discussed his medical conditions and high risk of aspiration. Discussed current oropharyngeal dysphagia and he is n.p.o. recommendations. Family states they would like patient to get his gabapentin with applesauce and awaiting to take the risk of aspiration because they feel that him not getting his gabapentin will put him into withdrawal from gabapentin after having a discussion with Dr. Murguia earlier in the hospitalization. Also explained his aspiration pneumonia which could be further explored extubated by further aspiration episodes. Discussed plan going forward to address his dysphagia and also elaborately discussed hospice, PEG tube and order nutrition forms. Also explained that patient has poor candidacy for TPN because he will likely pull out his PICC line and may even pull out a PEG tube as he picks and pulls on everything including his nasal cannula, self extubated, and pulled out IVs. Family would like to deliberate further and give a decision likely tomorrow. Time Spent: 30mins
[2019-11-28] MEDS: ATORVASTATIN CALCIUM 40 MG TABLET PO SCH (22:04)
[2019-11-28] MEDS: QUETIAPINE FUMARATE 25 MG TABLET PO SCH (22:05)
[2019-11-29] MEDS: PIPERACILLIN SODIUM/TAZOBACTAM 2.25 GM in NORMAL SALINE 50 ML IV SCH ×4 (00:52→17:24)
[2019-11-29] MEDS: ALBUTEROL SULFATE 0.083% NEB 2.5 MG/3 ML AMPUL NEB SCH ×3 (02:54→14:32)
[2019-11-29 05:08] LABS: HEMATOCRIT 29.4 % (37.9-51.0); HEMOGLOBIN 9.8 g/dL (13.5-17.0); MEAN CORPUSCULAR HEMOGLOBIN 30.3 pg (27.0-33.4); MEAN CORPUSCULAR HGB CONC 33.3 g/dL (32.0-36.0); MEAN CORPUSCULAR VOLUME 91 fl (80-97); PLATELET COUNT 357 10^3/uL (150-450); RED BLOOD COUNT 3.23 10^6/uL (4.35-5.55); RED CELL DISTRIBUTION WIDTH 13.4 % (11.5-14.0); WHITE BLOOD COUNT 11.9 10^3/uL (4.0-10.5)
[2019-11-29 05:10] LABS: VENOUS BLOOD BASE EXCESS 6.1 mmol/L; VENOUS BLOOD HCO3 28.4 mmol/L (20-32); VENOUS BLOOD PCO2 33.9 mmHg (35-63); VENOUS BLOOD PH 7.54 (7.30-7.42)
[2019-11-29] MEDS: GABAPENTIN 300 MG CAPSULE PO SCH ×2 (05:22→13:34)
[2019-11-29 05:26] LABS: ANION GAP 13 (5-19); BLOOD UREA NITROGEN 40 mg/dL (7-20); CALCIUM 8.7 mg/dL (8.4-10.2); CARBON DIOXIDE 27 mmol/L (22-30); CHLORIDE 105 mmol/L (98-107); GLUCOSE 182 mg/dL (75-110); POTASSIUM 3.5 mmol/L (3.6-5.0)
[2019-11-29] MEDS: INSULIN LISPRO 100 UNIT/ML 3 ML VIAL SUBCUT SCH ×3 (08:00→17:24)
[2019-11-29] MEDS ORDERED: POTASSI CL 20 MEQ/50 ML RIDER 20 MEQ/50 ML RTUPB IV ONE (08:30)
[2019-11-29] MEDS: BUDESONIDE NEB 0.25 MG/2 ML AMPUL NEB SCH (08:35)
--- NOTE | 2019-11-29 09:26 | PDOC PROGRESS REPORT ---
Subjective Progress Note for:: 11/29/19 Subjective:: Patient does not offer verbal response Reason For Visit: COMA,HYPOGLYCEMIC Physical Exam Vital Signs: Temp Pulse Resp BP Pulse Ox 99.1 F 95 31 H 146/76 H 100 11/28/19 03:17 11/29/19 07:00 11/29/19 04:12 11/28/19 03:17 11/29/19 05:09 Pulse Oximeter Continuous Start: 11/27/19 16:38 Freq: RTQ4 Status: Active Protocol: Document 11/29/19 04:12 PMU (Rec: 11/29/19 05:09 PMU [id number]) Pulse Oximetry Assessment Oxygen Saturation (92-100) 100 Oxygen Delivery Method Bi-pap Fraction of Inspired Oxygen (FIO2) 45 Equipment Usage Equipment in Use Continuous Pulse Oximeter 24 Hour Charge Charge Now Continuous SpO2 Machine # 7 Intake & Output 11/28/19 11/29/19 11/30/19 06:59 06:59 06:59 Intake Total 100 Output Total 1800 1025 Balance -1800 -925 Weight 85.8 kg 89.5 kg General appearance: PRESENT: no acute distress, well-developed, well-nourished Head exam: PRESENT: atraumatic, normocephalic Eye exam: PRESENT: conjunctiva pink Mouth exam: PRESENT: moist Neck exam: ABSENT: JVD Respiratory exam: PRESENT: decreased breath sounds - Air entry diminished at bases bilaterally, symmetrical, unlabored, wheezes - Wheezes noted over upper airways. ABSENT: accessory muscle use, crackles, rales, retraction, rhonchi Cardiovascular exam: PRESENT: irregular rhythm, +S1, +S2 Vascular exam: PRESENT: normal capillary refill GI/Abdominal exam: PRESENT: normal bowel sounds, soft. ABSENT: distended Rectal exam: PRESENT: deferred Extremities exam: PRESENT: +2 edema Neurological exam: PRESENT: alert, aphasic, other - Patient follows provider around room and appears to be attempting to answer questions Psychiatric exam: ABSENT: agitated, anxious Skin exam: PRESENT: dry, normal color, warm Results Laboratory Results: 11/29/19 04:57 11/29/19 04:57 11/28/19 11/28/19 11/29/19 14:20 18:05 04:57 WBC RBC Hgb Hct MCV MCH MCHC RDW Plt Count Carbonic Acid 0.80 L HCO3/H2CO3 Ratio 32:1 ABG pH 7.60 H* ABG pCO2 26.5 L ABG pO2 54.8 L ABG HCO3 25.7 H ABG O2 Saturation 93.5 L ABG Base Excess 4.9 VBG pH 7.58 H 7.54 H VBG pCO2 31.4 L 33.9 L VBG HCO3 28.6 28.4 VBG Base Excess 7.2 6.1 FiO2 5L Sodium Potassium Chloride Carbon Dioxide Anion Gap BUN Creatinine Est GFR ( Amer) Glucose Calcium Magnesium 11/29/19 11/29/19 04:57 04:57 WBC 11.9 H RBC 3.23 L Hgb 9.8 L Hct 29.4 L MCV 91 MCH 30.3 MCHC 33.3 RDW 13.4 Plt Count 357 Carbonic Acid HCO3/H2CO3 Ratio ABG pH ABG pCO2 ABG pO2 ABG HCO3 ABG O2 Saturation ABG Base Excess VBG pH VBG pCO2 VBG HCO3 VBG Base Excess FiO2 Sodium 144.6 Potassium 3.5 L Chloride 105 Carbon Dioxide 27 Anion Gap 13 BUN 40 H Creatinine 3.00 H Est GFR ( Amer) 25 L Glucose 182 H Calcium 8.7 Magnesium 2.0 11/23/19 14:41 Blood Blood Culture - Final NO GROWTH IN 5 DAYS 11/23/19 12:21 Blood Blood Culture - Final NO GROWTH IN 5 DAYS 11/08/19 11/08/19 11/20/19 15:23 15:23 03:53 Creatine Kinase 200 H CK-MB (CK-2) Troponin I 0.093 NT-Pro-B Natriuret Pep [id number] H 11/21/19 11/21/19 11/21/19 06:57 08:20 08:20 Creatine Kinase 135 CK-MB (CK-2) 4.13 Troponin I 0.113 NT-Pro-B Natriuret Pep 76493 H 32507 H 11/22/19 11/23/19 11/24/19 02:20 03:50 04:06 Creatine Kinase CK-MB (CK-2) Troponin I NT-Pro-B Natriuret Pep 83597 H 5320 H 8390 H Impressions: Head CT 11/08/19 12:29 IMPRESSION: CHRONIC CHANGES OF ATROPHY AND MICROVASCULAR ISCHEMIA. NO ACUTE PROCESS. EVIDENCE OF ACUTE STROKE: NO. KUB X-Ray 11/21/19 00:00 IMPRESSION: Nasoenteric tube tip overlies gastric body. Chest X-Ray 11/27/19 05:00 IMPRESSION: Interval development of a moderate left-sided pleural effusion with compressive atelectasis versus consolidation of the left lower lobe and lingula. Improved aeration on the right. Assessment and Plan - Diagnosis (1) Hypoglycemic coma due to diabetes mellitus Is this a current diagnosis for this admission?: Yes Plan: Resolved now hyperglycemic Continue current basal (glargine) insulin 12 units subcutaneous daily a need to titrate but will monitor FS BS now that patient is n.p.o. Patient now n.p.o. 2/2 mental status Continue FS BS with SSI correction scale but change to 6 hours (2) Acute metabolic encephalopathy Is this a current diagnosis for this admission?: Yes Plan: Patient now is a phasic (3) Acute respiratory failure with hypoxia and hypercapnia Is this a current diagnosis for this admission?: Yes Plan: Continue CPAP at at bedtime Titrate FiO2 PRN We will hold furosemide 20 mg IV daily 2/2 worsening renal function Financial Planning Assistant recommendation: Patient should use NIPPV nightly during any sleep. He has previously been advised to seek diagnostic polysomnography as an outpatient. Depending on how he progresses he should be evaluated prior to discharge home for chronic hypercapnic respiratory failure and possible need for home ventilator system. ABG on 11/28/2019 did not reveal CO2 retention however patient was hypoxemic (4) Enterobacter cloacae pneumonia Is this a current diagnosis for this admission?: Yes Plan: Patient started treatment on cefepim, asntibiotics changed to Zosyn on 11/21/2019 for broadened coverage of aspiration pneumonia Continue Zosyn 2.25 g IV every 6 hours, plans were to transition to p.o. doxycycline however patient is now n.p.o. (5) UTI (urinary tract infection), bacterial Is this a current diagnosis for this admission?: Yes Plan: E. coli UTI treated with completion (6) CKD (chronic kidney disease) Qualifiers: Chronic kidney disease stage: stage 4 (severe) Qualified Code(s): N18.4 - Chronic kidney disease, stage 4 (severe) Is this a current diagnosis for this admission?: Yes Plan: Patient's renal function has declined today Continue to hold furosemide Avoid nephrotoxins Monitor (7) Longstanding persistent atrial fibrillation Is this a current diagnosis for this admission?: Yes Plan: Continue metoprolol tartrate 25 mg p.o. every 12 hours Continue rivaroxaban 20 mg p.o. daily (8) HTN (hypertension) Is this a current diagnosis for this admission?: Yes Plan: BP is not been documented this a.m. Continue beta-angela as noted above (9) Dyslipidemia Is this a current diagnosis for this admission?: Yes Plan: Continue atorvastatin 40 mg p.o. daily (10) Acute on chronic diastolic heart failure Is this a current diagnosis for this admission?: Yes Plan: Last BNP 390 Furosemide on hold 2/2 renal function - Plan Summary Summary: Patient is now DNR status - Time Time Spent with patient: 25-34 minutes Medications reviewed and adjusted accordingly: Yes Anticipated Discharge Disposition: TBD Anticipated Discharge Timeframe: TBD
[2019-11-29] MEDS: POLYETHYLENE GLYCOL 3350 POWDER 17 GM/1 PACKET PO SCH (10:24)
[2019-11-29] MEDS: METOPROLOL TARTRATE 25 MG TABLET PO SCH (10:24)
[2019-11-29] MEDS: ASPIRIN 81 MG TABLET, CHEWABLE PO SCH (10:24)
[2019-11-29] MEDS: FLUTICASONE NASAL SPRAY 50 MCG/SPRY 120 SPRAY/16 GM NASL SCH (10:24)
[2019-11-29] MEDS: RIVAROXABAN 10 MG TABLET PO SCH (10:25)
[2019-11-29] MEDS: SENNOSIDES/DOCUSATE 8.6-50 MG 1 EACH TABLET PO SCH ×2 (10:25→17:07)
[2019-11-29] MEDS ORDERED: LORAZEPAM INJ 2 MG/1 ML VIAL IV PRN (19:09)
[2019-11-30] MEDS: MORPHINE SULFATE 10 MG/ML INJ IV PRN ×2 (01:35→07:55)
[2019-11-30 12:17] VITALS: BP 144/65
--- NOTE | 2019-11-30 19:44 | PDOC PROGRESS REPORT ---
Subjective Progress Note for:: 11/30/19 Subjective:: Does not respond Reason For Visit: COMA,HYPOGLYCEMIC Physical Exam Vital Signs: Temp Pulse Resp BP Pulse Ox 97.7 F 84 20 144/65 H 100 11/30/19 10:00 11/30/19 07:00 11/29/19 19:13 11/29/19 19:13 11/29/19 19:13 Pulse Oximeter Continuous Start: 11/27/19 16:38 Freq: RTQ4 Status: Complete Protocol: Document 11/29/19 16:50 HCR (Rec: 11/29/19 16:50 HCR [email or web address]) Pulse Oximetry Assessment Oxygen Saturation (92-100) 94 Oxygen Flow Rate (L/min) 3 Oxygen Delivery Method Nasal Cannula Equipment Usage Equipment in Use Continuous SpO2 Machine # 7 Intake & Output 11/29/19 11/30/19 12/01/19 06:59 06:59 06:59 Intake Total 100 100 Output Total 1025 775 350 Balance -925 -675 -350 Weight 89.5 kg 86.2 kg 86.2 kg General appearance: PRESENT: mild distress Respiratory exam: PRESENT: decreased breath sounds - Air entry diminished at bases bilaterally, symmetrical, unlabored - Mildly labored respirations, other - Sounds coarse throughout. ABSENT: accessory muscle use Cardiovascular exam: PRESENT: irregular rhythm, +S1, +S2 Vascular exam: PRESENT: normal capillary refill GI/Abdominal exam: PRESENT: hypoactive bowel sounds, soft Rectal exam: PRESENT: deferred Neurological exam: PRESENT: altered Skin exam: PRESENT: dry, normal color, warm Results Laboratory Results: 11/29/19 04:57 11/29/19 04:57 11/08/19 11/08/19 11/20/19 15:23 15:23 03:53 Creatine Kinase 200 H CK-MB (CK-2) Troponin I 0.093 NT-Pro-B Natriuret Pep [id number] H 11/21/19 11/21/19 11/21/19 06:57 08: 08:20 Creatine Kinase 135 CK-MB (CK-2) 4.13 Troponin I 0.113 NT-Pro-B Natriuret Pep 27632 H 02416 H 11/22/19 11/23/19 11/24/19 02:20 03:50 04:06 Creatine Kinase CK-MB (CK-2) Troponin I NT-Pro-B Natriuret Pep 84461 H 5320 H 8390 H Impressions: Head CT 11/08/19 12:29 IMPRESSION: CHRONIC CHANGES OF ATROPHY AND MICROVASCULAR ISCHEMIA. NO ACUTE PROCESS. EVIDENCE OF ACUTE STROKE: NO. KUB X-Ray 11/21/19 00:00 IMPRESSION: Nasoenteric tube tip overlies gastric body. Chest X-Ray 11/27/19 05:00 IMPRESSION: Interval development of a moderate left-sided pleural effusion with compressive atelectasis versus consolidation of the left lower lobe and lingula. Improved aeration on the right. Assessment and Plan - Diagnosis (1) Hypoglycemic coma due to diabetes mellitus Is this a current diagnosis for this admission?: Yes (2) Acute metabolic encephalopathy Is this a current diagnosis for this admission?: Yes (3) Acute respiratory failure with hypoxia and hypercapnia Is this a current diagnosis for this admission?: Yes (4) Enterobacter cloacae pneumonia Is this a current diagnosis for this admission?: Yes (5) UTI (urinary tract infection), bacterial Is this a current diagnosis for this admission?: Yes (6) CKD (chronic kidney disease) Qualifiers: Chronic kidney disease stage: stage 4 (severe) Qualified Code(s): N18.4 - Chronic kidney disease, stage 4 (severe) Is this a current diagnosis for this admission?: Yes (7) Longstanding persistent atrial fibrillation Is this a current diagnosis for this admission?: Yes (8) HTN (hypertension) Is this a current diagnosis for this admission?: Yes (9) Dyslipidemia Is this a current diagnosis for this admission?: Yes (10) Acute on chronic diastolic heart failure Is this a current diagnosis for this admission?: Yes Plan: Patient transition to comfort care on 11/29/2019 the request of his family. All medications and treatments were discontinued and patient is being evaluated for hospice care. - Plan Summary Summary: Patient is now DNR status - Time Time Spent with patient: Less than 15 minutes Medications reviewed and adjusted accordingly: No - Now comfort care medications stopped Anticipated Discharge Disposition: Hospice Center Anticipated Discharge Timeframe: when bed available
--- NOTE | 2019-12-01 17:11 | PDOC DISCHARGE SUMMARY ---
Impression - Admit/DC Date/PCP Admission Date/Primary Care Provider: 11/08/19 14:22 [place] [facility] Discharge Date: 11/30/19 - Charge summary completed post discharge - Discharge Diagnosis (1) Hypoglycemic coma due to diabetes mellitus Is this a current diagnosis for this admission?: Yes (2) Acute metabolic encephalopathy Is this a current diagnosis for this admission?: Yes (3) Acute respiratory failure with hypoxia and hypercapnia Is this a current diagnosis for this admission?: Yes (4) Enterobacter cloacae pneumonia Is this a current diagnosis for this admission?: Yes (5) UTI (urinary tract infection), bacterial Is this a current diagnosis for this admission?: Yes (6) CKD (chronic kidney disease) Is this a current diagnosis for this admission?: Yes (7) Longstanding persistent atrial fibrillation Is this a current diagnosis for this admission?: Yes (8) HTN (hypertension) Is this a current diagnosis for this admission?: Yes (9) Dyslipidemia Is this a current diagnosis for this admission?: Yes (10) Acute on chronic diastolic heart failure Is this a current diagnosis for this admission?: Yes - Assessment Summary: Patient is now DNR status - Additional Information Resuscitation Status: Do Not Resuscitate Referrals: [facility] [Primary [facility]] - Home Medications: Albuterol Sulfate [Ventolin 0.083% Neb 2.5 mg/3 mL Ampul] 1 vial NEB RTQ6HP PRN 07/30/18 Aspirin [Ecotrin 325 mg EC Tablet] 325 mg PO DAILY 07/30/18 Atorvastatin Calcium [Lipitor 40 mg Tablet] 40 mg PO QHS 07/30/18 Furosemide [Lasix 20 mg Tablet] 20 mg PO DAILY 07/30/18 Metoprolol Succinate [Toprol Xl 25 mg Tab.sr] 12.5 mg PO DAILY 07/30/18 Albuterol Sulfate [Proair Hfa Inhalation Aerosol 8.5 gm Mdi] 2 puff IH Q6HP PRN 11/08/19 Cholecalciferol (Vitamin D3) [Vitamin D3 1000 Unit Tablet] 2,000 unit PO DAILY 11/08/19 Fexofenadine HCl [Zuly Allergy] 180 mg PO DAILYP PRN 11/08/19 Fluticasone Propionate [Flonase Nasal Moose 50 Mcg/Moose 16 gm] 2 sprays NASL DAILY 11/08/19 Gabapentin 600 mg PO Q8HP PRN 11/08/19 Insulin Aspart [Novolog Insulin 100 Unit/1 ml 10 ml] 0 unit SUBCUT .SLIDING SCALE 11/08/19 Insulin Glargine,Hum.rec.anlog [Lantus Insulin 100 Unit/1 ml 10 ml] 50 unit SUBCUT QHS 11/08/19 Melatonin [Melatonin 3 mg Tablet] 3 mg PO QHS 11/08/19 Rivaroxaban [Xarelto] 20 mg PO DAILY 11/08/19 History of Present Illiness History of Present Illness: TWYLA MILLAN is a 74 year old male with complex PMH to include type 2 diabetes who presented to the emergency room after activated EMS when she found him unresponsive with a blood sugar of 40. In the ED his glucose did not improve and he remained neurologically compromised and as a result he was intubated and in intensive care consult was obtained. The patient was admitted to the intensive care unit where he received care for several days ultimately being transferred to the floor under the hospitalist service. Hospital Course Hospital Course: Morning following transfer to the floor the patient suffered a PEA cardiac arrest. He was coded for several minutes. He was reintubated and a central line was plac in his femoral vein. He was transferred back to the intensive care unit where he remained for several more days. He remained neurologically compromised and was ultimately transferred back to the floor where the family made a decision to transition him to comfort care and consult hospice services. All medications and treatments were discontinued and the patient was placed on IV morphine and lorazepam for comfort. He was discharged on 11/30/2019 to home with hospice service. Physical Exam Vital Signs: Temp Pulse Resp BP Pulse Ox 97.7 F 84 20 144/65 H 100 11/30/19 10:00 11/30/19 07:00 11/29/19 19:13 11/29/19 19:13 11/29/19 19:13 Pulse Oximeter Continuous Start: 11/27/19 16:38 Freq: RTQ4 Status: Complete Protocol: Document 11/29/19 16:50 HCR (Rec: 11/29/19 16:50 HCR [id number]) Pulse Oximetry Assessment Oxygen Saturation (92-100) 94 Oxygen Flow Rate (L/min) 3 Oxygen Delivery Method Nasal Cannula Equipment Usage Equipment in Use Continuous SpO2 Machine # 7 Intake & Output 11/30/19 12/01/19 12/02/19 06:59 06:59 06:59 Intake Total 100 Output Total 775 350 Balance -675 -350 Weight 86.2 kg 86.2 kg General appearance: PRESENT: mild distress Respiratory exam: PRESENT: decreased breath sounds - Entry decreased at bases bilaterally, other - Mildly labored respirations. Breath sounds coarse throughout.. ABSENT: accessory muscle use Cardiovascular exam: PRESENT: irregular rhythm, +S1, +S2 Vascular exam: PRESENT: normal capillary refill GI/Abdominal exam: PRESENT: hypoactive bowel sounds, soft Rectal exam: PRESENT: deferred Neurological exam: PRESENT: altered Skin exam: PRESENT: dry, normal color, warm Results Laboratory Results: WBC 11.9 10^3/uL (4.0-10.5) H 11/29/19 04:57 RBC 3.23 10^6/uL (4.35-5.55) L 11/29/19 04:57 Hgb 9.8 g/dL (13.5-17.0) L 11/29/19 04:57 Hct 29.4 % (37.9-51.0) L 11/29/19 04:57 MCV 91 fl (80-97) 11/29/19 04:57 MCH 30.3 pg (27.0-33.4) 11/29/19 04:57 MCHC 33.3 g/dL (32.0-36.0) 11/29/19 04:57 RDW 13.4 % (11.5-14.0) 11/29/19 04:57 Plt Count 357 10^3/uL (150-450) 11/29/19 04:57 Lymph % (Auto) 5.6 % (13-45) L 11/27/19 04:08 [place] % (Auto) 8.4 % (3-13) 11/27/19 04:08 Eos % (Auto) 2.1 % (0-6) 11/27/19 04:08 Baso % (Auto) 0.8 % (0-2) 11/27/19 04:08 Absolute Neuts (auto) 11.1 10^3/uL (1.7-8.2) H 11/27/19 04:08 Absolute Lymphs (auto) 0.7 10^3/uL (0.5-4.7) 11/27/19 04:08 Absolute Monos (auto) 1.1 10^3/uL (0.1-1.4) 11/27/19 04:08 Absolute Eos (auto) 0.3 10^3/uL (0.0-0.6) 11/27/19 04:08 Absolute Basos (auto) 0.1 10^3/uL (0.0-0.2) 11/27/19 04:08 Total Counted 100 11/25/19 06:25 Seg Neutrophils % 83.1 % (42-78) H 11/27/19 04:08 Seg Neuts % (Manual) 89 % (42-78) H 11/25/19 06:25 Band Neutrophils % 1 % (3-5) L 11/13/19 04:59 Lymphocytes % (Manual) 4 % (13-45) L 11/25/19 06:25 Atypical Lymphs % 2 % (0) 11/11/19 04:03 Monocytes % (Manual) 7 % (3-13) 11/25/19 06:25 Eosinophils % (Manual) 0 % (0-6) 11/25/19 06:25 Basophils % (Manual) 0 % (0-2) 11/25/19 06:25 Abs Neuts (Manual) 13.5 10^3/uL (1.7-8.2) H 11/25/19 06:25 Abs Lymphs (Manual) 0.6 10^3/uL (0.5-4.7) 11/25/19 06:25 Abs Monocytes (Manual) 1.1 10^3/uL (0.1-1.4) 11/25/19 06:25 Absolute Eos (Manual) 0.0 10^3/uL (0.0-0.6) 11/25/19 06:25 Abs Basophils (Manual) 0.0 10^3/uL (0.0-0.2) 11/25/19 06:25 Toxic Granulation SLIGHT 11/09/19 03:56 Toxic Vacuolation PRESENT 11/10/19 04:14 Platelet Estimate Cancelled 11/08/19 11:42 Platelet Comment ADEQUATE 11/25/19 06:25 Polychromasia SLIGHT 11/08/19 15:23 Poikilocytosis SLIGHT 11/09/19 03:56 Anisocytosis SLIGHT 11/25/19 06:25 Tear Drop Cells SLIGHT 07/29/20 03:56 Ovalocytes SLIGHT 11/09/19 03:56 [place] Cells 1+ 11/08/19 15:23 Schistocytes SLIGHT 11/09/19 03:56 RBC Morph Comment NORMO-CYTIC/CHROMIC 11/23/19 03:50 PT 14.6 SEC (11.4-15.4) 11/09/19 03:56 INR 1.14 11/09/19 03:56 APTT 29.8 SEC (23.5-35.8) 11/12/19 04:50 D-Dimer 0.66 ug/mL (0.00-0.50) H 11/09/19 03:56 Carbonic Acid 0.80 mmol/L (1.05-1.35) L 11/28/19 14:20 HCO3/H2CO3 Ratio 32:1 11/28/19 14:20 ABG pH 7.60 (7.35-7.45) H* 11/28/19 14:20 ABG pCO2 26.5 mmHg (35-45) L 11/28/19 14:20 ABG pO2 54.8 mmHg (80-100) L 11/28/19 14:20 ABG HCO3 25.7 mmol/L (20-24) H 11/28/19 14:20 ABG Total CO2 26.5 mmol/L (23-27) 11/28/19 14:20 ABG O2 Saturation 93.5 % (94-98) L 11/28/19 14:20 ABG Base Excess 4.9 mmol/L 11/28/19 14:20 VBG pH 7.54 (7.30-7.42) H 11/29/19 04:57 VBG pCO2 33.9 mmHg (35-63) L 11/29/19 04:57 VBG HCO3 28.4 mmol/L (20-32) 11/29/19 04:57 VBG Base Excess 6.1 mmol/L 11/29/19 04:57 FiO2 5L 11/28/19 14:20 Sodium 144.6 mmol/L (137-145) 11/29/19 04:57 Potassium 3.5 mmol/L (3.6-5.0) L 11/29/19 04:57 Chloride 105 mmol/L (98-107) 11/29/19 04:57 Carbon Dioxide 27 mmol/L (22-30) 11/29/19 04:57 Anion Gap 13 (5-19) 11/29/19 04:57 BUN 40 mg/dL (7-20) H 11/29/19 04:57 Creatinine 3.00 mg/dL (0.52-1.25) H 11/29/19 04:57 Est GFR ( Amer) 25 (>60) L 11/29/19 04:57 Est GFR (Non-Af Amer) Cancelled 11/08/19 11:42 Est GFR (MDRD) Non-Af 20 (>60) L 11/29/19 04:57 Glucose 182 mg/dL (75-110) H 11/29/19 04:57 POC Glucose 158 mg/dL (70-110) H 11/29/19 16:43 Hemoglobin A1c % 9.2 % (4.7-6.0) H 11/09/19 03:56 Free Insulin 15 uU/mL (.) 11/08/19 15:23 Total Insulin 21 uU/mL (.) 11/08/19 15:23 Lactic Acid 8.1 mmol/L (0.7-2.1) H 11/21/19 08:20 Calcium 8.7 mg/dL (8.4-10.2) 11/29/19 04:57 Phosphorus 4.7 mg/dL (2.5-4.5) H 11/26/19 04:00 Magnesium 2.0 mg/dL (1.6-2.3) 11/29/19 04:57 Ferritin 52.10 ng/mL (17.9-464.0) 11/09/19 03:56 Total Bilirubin 1.2 mg/dL (0.2-1.3) 11/22/19 02:20 Direct Bilirubin 0.0 mg/dL (0.0-0.4) 11/22/19 02:20 Neonat Total Bilirubin Not Reportable 11/22/19 02:20 Neonat Direct Bilirubin Not Reportable 11/22/19 02:20 Neonat Indirect Bili Not Reportable 11/22/19 02:20 AST 57 U/L (17-59) 11/22/19 02:20 ALT 43 U/L (<50) 11/22/19 02:20 Alkaline Phosphatase 75 U/L (38-126) 11/22/19 02:20 Ammonia < 8.7 umol/L (9-33) L 11/08/19 15:23 Creatine Kinase 135 U/L (55-170) 11/21/19 08:20 CK-MB (CK-2) 4.13 ng/mL (<4.55) 11/21/19 08:20 Troponin I 0.113 ng/mL 11/21/19 08:20 C-Reactive Protein 10.8 mg/L (<10.0) H 11/09/19 03:56 NT-Pro-B Natriuret Pep 8390 pg/mL (<450) H 11/24/19 04:06 Total Protein 6.0 g/dL (6.3-8.2) L 11/22/19 02:20 Albumin 2.7 g/dL (3.5-5.0) L 11/22/19 02:20 Prealbumin 12.6 mg/dL (17.6-36.0) L 11/26/19 04:00 Amylase 88 U/L (30-110) 11/08/19 15:23 Lipase 41.3 U/L (23-300) 11/08/19 15:23 EGFR Cancelled 11/08/19 11:42 Procalcitonin 0.19 ng/mL (0.00-0.08) H 11/09/19 03:56 TSH 2.65 uIU/mL (0.47-4.68) 11/08/19 15:23 Free T4 0.80 ng/dL (0.78-2.19) 11/08/19 15:23 Random Cortisol 19.30 ug/dL (None Established) 11/08/19 15:23 Urine Color ZACHARY 11/08/19 17:30 Urine Appearance CLOUDY 11/08/19 17:30 Urine pH 5.0 (5.0-9.0) 11/08/19 17:30 Ur Specific [place] 1.019 11/08/19 17:30 Urine Protein >=500 mg/dL (NEGATIVE) H 11/08/19 17:30 Urine Glucose (UA) NEGATIVE mg/dL (NEGATIVE) 11/08/19 17:30 Urine Ketones TRACE mg/dL (NEGATIVE) H 11/08/19 17:30 Urine Blood LARGE (NEGATIVE) H 11/08/19 17:30 Urine Nitrite (Reflex) NEGATIVE (NEGATIVE) 11/08/19 17:30 Urine Bilirubin NEGATIVE (NEGATIVE) 11/08/19 17:30 Urine Urobilinogen NEGATIVE mg/dL (<2.0) 11/08/19 17:30 Leukocyte Esterase Rfl MODERATE (NEGATIVE) H 11/08/19 17:30 Urine RBC (Auto) 133 /HPF 11/08/19 17:30 Urine Bacteria (Auto) 1+ /HPF 11/08/19 17:30 Urine WBC (Reflex) 180 /HPF 11/08/19 17:30 Urine WBC Clumps MANY /HPF 11/08/19 17:30 Squamous Epi Cells Auto 1 /HPF 11/08/19 17:30 Urine Mucus (Auto) OCC /LPF 11/08/19 17:30 Urine Ascorbic Acid NEGATIVE (NEGATIVE) 11/08/19 17:30 Time Trough Drawn 1205 11/24/19 12:05 Vancomycin Trough 10.1 ug/mL (5.0-20.0) 11/24/19 12:05 Urine Opiates Screen NEGATIVE 11/08/19 17:30 Urine Methadone Screen NEGATIVE 11/08/19 17:30 Ur Barbiturates Screen NEGATIVE 11/08/19 17:30 Ur Phencyclidine Scrn NEGATIVE 11/08/19 17:30 Ur Amphetamines Screen NEGATIVE 11/08/19 17:30 U Benzodiazepines Scrn NEGATIVE 11/08/19 17:30 Urine Cocaine Screen NEGATIVE 11/08/19 17:30 U Marijuana (THC) Screen NEGATIVE 11/08/19 17:30 COVID-19 Source NASOPHARYNGEAL 11/08/19 13:35 COVID-19 ([place]) NOT DETECTED 11/08/19 13:35 Slides for Path Review Cancelled 11/08/19 11:42 11/08/19 11/20/19 11/21/19 15:23 03:53 06:57 CK-MB (CK-2) Troponin I 0.093 NT-Pro-B Natriuret Pep 40041 H 88761 H 11/21/19 11/22/19 11/23/19 08:20 02:20 03:50 CK-MB (CK-2) 4.13 Troponin I 0.113 NT-Pro-B Natriuret Pep 44686 H 00539 H 5320 H 11/24/19 04:06 CK-MB (CK-2) Troponin I NT-Pro-B Natriuret Pep 8390 H Impressions: Chest X-Ray 11/08/19 11:58 IMPRESSION: NO ACUTE RADIOGRAPHIC FINDING IN THE CHEST. Chest X-Ray 11/08/19 12:29 IMPRESSION: Endotracheal tube as described. No other interval change. Head CT 11/08/19 12:29 IMPRESSION: CHRONIC CHANGES OF ATROPHY AND MICROVASCULAR ISCHEMIA. NO ACUTE PROCESS. EVIDENCE OF ACUTE STROKE: NO. Chest X-Ray 11/09/19 06:00 IMPRESSION: Endotracheal tube tip overlies midthoracic trachea. No evidence of new cardiopulmonary process. Chest X-Ray 11/10/19 06:00 IMPRESSION: STABLE APPEARANCE OF THE CHEST. SUPPORT DEVICES UNCHANGED. Chest X-Ray 11/11/19 06:00 IMPRESSION: The patient has been extubated. There is central vascular congestion and prominence of interstitial markings. No focal consolidation or pneumothorax. KUB X-Ray 11/11/19 17:50 IMPRESSION: TIP OF THE NASOGASTRIC TUBE IN THE STOMACH. Chest X-Ray 11/12/19 06:00 IMPRESSION: NO SIGNIFICANT CHANGE IN APPEARANCE OF THE CHEST. KUB X-Ray 11/14/19 00:00 IMPRESSION: The NG tube is about 10 cm inside the stomach. KUB X-Ray 11/15/19 00:00 IMPRESSION: Moderate fecal retention. No significant change. KUB X-Ray 11/17/19 00:00 IMPRESSION: Enteric tube proximal port projects at the level of the gastroesophageal junction; recommend advancing 10 cm. Chest X-Ray 11/19/19 00:00 IMPRESSION: 1. Developing mild pulmonary edema. 2. Small bilateral layering effusions with compressive atelectasis/consolidation in the lung bases. KUB X-Ray 11/19/19 00:00 IMPRESSION: Moderate stool throughout the colon. No evidence of bowel obstruction. Chest X-Ray 11/20/19 05:00 IMPRESSION: Mild to moderate pulmonary edema. Small bilateral pleural effusions, with compressive atelectasis at the right lung base. KUB X-Ray 11/20/19 05:00 IMPRESSION: NO RADIOGRAPHIC EVIDENCE FOR ACUTE ABDOMINAL DISEASE. Moderate constipation. Chest X-Ray 11/21/19 00:00 IMPRESSION: Mildly worsened patchy interstitial and alveolar opacities, right greater than left. Findings may represent asymmetric edema or multifocal infection. Endotracheal tube tip overlies midthoracic trachea. KUB X-Ray 11/21/19 00:00 IMPRESSION: Nasoenteric tube tip overlies gastric body. Chest X-Ray 11/22/19 05:00 IMPRESSION: IMPROVED AERATION. Chest X-Ray 11/23/19 05:00 IMPRESSION: Status post extubation and removal of the enteric tube. Otherwise unchanged radiographic appearance of the chest. Chest X-Ray 11/24/19 05:00 IMPRESSION: STABLE APPEARANCE OF THE CHEST. Chest X-Ray 11/27/19 05:00 IMPRESSION: Interval development of a moderate left-sided pleural effusion with compressive atelectasis versus consolidation of the left lower lobe and lingula. Improved aeration on the right. Plan Plan of Treatment: Patient discharged home with hospice services Stroke Is this a Stroke Patient?: No Acute Heart Failure - Is this a Heart Failure Patient?: No
== END 2019-11-30 18:45 | disposition home or self-care (01) | DRG 871 ==
LOC: ER 11:38 → EH 14:22 → ICU 16:33 → 5 11-20 15:47 → ICU 11-21 08:43 → 3S 11-27 17:23
PROVIDERS: ADMIT Internal Medicine Critical Care Medicine; ATTEND Nurse Practitioner
PROC: 5A1945Z Respiratory Ventilation, 24-96 Consecutive Hours (ICD-10-PCS; principal; 2019-11-08)
PROC: 0BH17EZ Insertion of Endotracheal Airway into Trachea, Via Natural or Artificial Opening (ICD-10-PCS; 2019-11-08)
PROC: 06HY33Z Insertion of Infusion Device into Lower Vein, Percutaneous Approach (ICD-10-PCS; 2019-11-21)
PROC: 5A1945Z Respiratory Ventilation, 24-96 Consecutive Hours (ICD-10-PCS; 2019-11-21)
PROC: 0BH17EZ Insertion of Endotracheal Airway into Trachea, Via Natural or Artificial Opening (ICD-10-PCS; 2019-11-21)
DX: A41.9 Sepsis, unspecified organism (principal); E11.641 Type 2 diabetes mellitus with hypoglycemia with coma; G93.41 Metabolic encephalopathy; J96.01 Acute respiratory failure with hypoxia; J96.02 Acute respiratory failure with hypercapnia; J15.6 Pneumonia due to other Gram-negative bacteria; I50.33 Acute on chronic diastolic (congestive) heart failure; N17.0 Acute kidney failure with tubular necrosis; J15.212 Pneumonia due to Methicillin resistant Staphylococcus aureus; I46.8 Cardiac arrest due to other underlying condition; I48.11 Longstanding persistent atrial fibrillation; L03.116 Cellulitis of left lower limb; L03.115 Cellulitis of right lower limb; J44.0 Chronic obstructive pulmonary disease with (acute) lower respiratory infection; T17.800A Unspecified foreign body in other parts of respiratory tract causing asphyxiation, initial encounter; F05 Delirium due to known physiological condition; N18.4 Chronic kidney disease, stage 4 (severe); I13.0 Hypertensive heart and chronic kidney disease with heart failure and stage 1 through stage 4 chronic kidney disease, or unspecified chronic kidney disease; R65.20 Severe sepsis without septic shock; Z20.828 Contact with and (suspected) exposure to other viral communicable diseases; E11.22 Type 2 diabetes mellitus with diabetic chronic kidney disease; E03.9 Hypothyroidism, unspecified; E78.5 Hyperlipidemia, unspecified; Z66 Do not resuscitate; I25.10 Atherosclerotic heart disease of native coronary artery without angina pectoris; E11.51 Type 2 diabetes mellitus with diabetic peripheral angiopathy without gangrene; E86.0 Dehydration; I49.3 Ventricular premature depolarization; B96.20 Unspecified Escherichia coli [E. coli] as the cause of diseases classified elsewhere; E87.6 Hypokalemia; D72.823 Leukemoid reaction; K59.00 Constipation, unspecified; Z79.899 Other long term (current) drug therapy; Z79.4 Long term (current) use of insulin; Z79.82 Long term (current) use of aspirin; Z79.01 Long term (current) use of anticoagulants; Z95.5 Presence of coronary angioplasty implant and graft; Z87.891 Personal history of nicotine dependence; Z88.6 Allergy status to analgesic agent; Z78.1 Physical restraint status; Z11.59 Encounter for screening for other viral diseases
CPT/HCPCS: 31500; 36415; 36600; 70450; 71045; 74018; 80048; 80053; 80202; 80307; 81001; 82140; 82150; 82533; 82550; 82553; 82565; 82728; 82803; 82962; 83036; 83525; 83527; 83605; 83690; 83735; 83880; 84100; 84134; 84145; 84439; 84443; 84484; 85025; 85027; 85379; 85610; 85730; 86140; 87040; 87070; 87077; 87086; 87088; 87150; 87186; 87205; 87635; 92950; 93005; 93010; 93306; 94002; 94003; 94660; 94762; 96374; 96375; 99221; 99223; 99291; 99292; C9113; C9803; J0171; J0330; J0360; J0692; J1120; J1265; J1644; J1720; J1815; J1940; J2020; J2060; J2270; J2310; J2405; J2543; J2704; J3010; J3370; J3475; J3480; J3486; J3490; J7042; J7050; J7060; J7120; S0028